=== PATIENT | female | born 1995 | race Caucasian/White ===

== ENCOUNTER 2019-09-09 11:48 | Emergency (ER) | payer OTHER, SELFPAY ==
[2019-09-09 12:03] VITALS: BP 123/69; PULSE 69; RESP 20; TEMP 37.5; O2SAT 100
--- NOTE | 2019-09-09 12:03 | ED.URI ---
HPI - URI/Sore Throat General Chief Complaint: Upper Respiratory Infection Stated Complaint: Cough Time Seen by Provider: 09/09/19 12:03 Source: patient Mode of arrival: ambulatory Limitations: no limitations History of Present Illness HPI Narrative: Christina Scott is a 24 yo female with a PMH of seasonal allergies who comes to express care with myalgias sore throat cough. Coughing is bad enough that causes her to vomit x 2 days. Related Data Allergies Allergy/AdvReac Type Severity Reaction Status Date / Time garlic Allergy Unknown HIVES Verified 08/12/19 09:57 latex Allergy Unknown RASH Verified 08/12/19 09:57 sertraline Allergy Unknown suicidal Verified 08/12/19 09:57 thoughts Review of Systems Review of Systems: Narrative: CONSTITUTIONAL: Low-grade fever, chills, sweats. EYES: Denies visual changes, redness, discharge. ENT: Has rhinorrhea, has congestion, minimal sore throat, no otalgia. CARDIOVASCULAR: Denies chest pain, palpitations, edema. RESPIRATORY: Denies dyspnea, wheezing, dry cough GASTROINTESTINAL: Denies abdominal pain, nausea, vomiting, diarrhea. GENITOURINARY: Denies dysuria, hematuria, abnormal discharge SKIN: Denies rash or itching. NEUROLOGIC: Denies numbness, or focal weakness. PSYCHIATRIC: Denies anxiety or depression. [facility] Past Medical History Medical History Astigmatism, bilateral Depression with anxiety IBS (irritable bowel syndrome) UTI (urinary tract infection) Surgical History Surgical History History of dilation and curettage History of exploratory laparotomy Family History Family History Grandparent Diabetes mellitus Family history of malignant neoplasm of brain Mother Diabetes mellitus Family history of elevated blood lipids Family history of anemia Father Hypertension Other Family history of malignant neoplasm of kidney Family history of pancreatic cancer Social History Social History (Updated 09/09/19 @ 12:11 by Sandra Centeno CNP) Smoking status: Former smoker Alcohol intake: never Gender identity (if verbalized by the patient): Female Comments At time of signature, I agree with nursing past medical, surgical, social and family history. There is no relevant family history pertinent to the presenting complaint. Exam Narrative: Exam Narrative: GENERAL: This is a well-nourished, well-developed patient, in moderate distress. HEAD: normocephalic, atraumatic. EYES: Sclera clear/white. Vision is grossly intact. EARS: External ears normal, auditory canals clear and without drainage, TMs normal without perforation. Hearing grossly intact. NOSE: External nose normal with clear nasal discharge, nares with redness, has rhinorrhea. THROAT: Mucous membranes moist, posterior pharynx erythema NECK: Neck supple, non-tender CARDIOVASCULAR: Regular rate and rhythm without murmurs, gallops, or rubs. RESPIRATORY: Clear to auscultation. Breath sounds equal bilaterally. No wheezes, rales, or rhonchi. GASTROINTESTINAL: Abdomen soft, non-tender, SKIN: warm, intact with no suspicious lesions or rash, good texture and turgor. NEURO: awake, alert, and oriented to person, place and time. There were no obvious focal neurologic abnormalities. Steady gait EXTREMITIES: Normal range of motion. BACK: Nontender without deformity or crepitance. Course Course Emergency Course: Flu swab negative Strep positive Started on penicillin, discussed infection control guidelines Work excuse given Vital Signs Vital signs: Vital Signs Temperature 99.5 F 09/09/19 12:03 Pulse Rate 69 09/09/19 12:03 Respiratory Rate 20 09/09/19 12:03 Blood Pressure 123/69 09/09/19 12:03 Pulse Oximetry 100 09/09/19 12:03 Temperature 99.5 F 09/09/19 12:03 Pulse Rate 69 09/09/19 12:03 Respiratory Rate 20 0
== END 2019-09-09 12:24 | disposition home or self-care (01) ==
PROVIDERS: Emergency Provider Nurse Practitioner
DX: J02.0 Streptococcal pharyngitis (principal); Z87.891 Personal history of nicotine dependence; F41.9 Anxiety disorder, unspecified; F32.9 Major depressive disorder, single episode, unspecified
CPT/HCPCS: 87804; 87880; 99213; G0463

== ENCOUNTER 2019-11-02 12:44 | Emergency (ER) | payer OTHER, SELFPAY ==
--- NOTE | ~2019-11-02 | US_ITS ---
EXAMINATION: US pelvic complete w TV DATE: 11/02/2019 15:08 INDICATION: Right pelvic pain, history of left oophorectomy TECHNIQUE: Multiple transabdominal and endovaginal sonographic images of the pelvis were obtained. COMPARISON: 02/05/2019 FINDINGS: The uterus measures 7.6 x 4.6 x 3.5 cm. The endometrial complex measures 4 mm. The left ova ry is not visualized however no left adnexal abnormality is seen. The right ovary measures 3.7 x 1.7 x 2.2 cm. A cyst or follicle of the right ovary is decreased in size prior examination. Also noted ar e smaller cysts or follicles of the right ovary. There is normal vascular flow in the right ovary. Th ere is no free fluid in the pelvis. IMPRESSION: 1. No sonographic correlate for the patient's symptoms. Reviewed, dictated and finalized at location A.
--- NOTE | ~2019-11-02 | CT_ITS ---
EXAMINATION: CT abdomen pelvis w con EXAM DATE: 11/02/2019 16:26 INDICATION: Right lower quadrant abdominal pain. TECHNIQUE: Spiral CT of the abdomen and pelvis was performed following intravenous injection of 100 m L Omnipaque 350. Axial, coronal and sagittal images were reviewed. The dose-length product (DLP) fo r this examination was 190.74 mGy-cm. The exposure was tailored according to patient size (auto mA e xposure control), and iterative reconstruction (ASIR) was used as additional dose reduction technique . Comparison is made to prior examination from 04/05/2019. FINDINGS: The liver, spleen, adrenal glands and pancreas are unremarkable. Gallbladder is unremarkab le. No biliary obstruction. Portal and splenic veins are patent. Kidneys enhance symmetrically. T here is no hydronephrosis. The uterus is unremarkable. Right ovary is normal in size, the left is n ot identified. The bladder is unremarkable. There is no retroperitoneal or pelvic lymphadenopathy. Probable identification of a normal appendix. No pericecal inflammation. The stomach and small melquiades l are unremarkable. There is expected amount of colonic stool. No free intraperitoneal gas. The heart is normal in size. There are no pericardial or pleural effusions. The lung bases are unremark able. The bones are unremarkable. IMPRESSION: 1. No acute intra-abdominal findings. Reviewed, dictated and finalized at location A.
[2019-11-02 12:50] VITALS: BP 90/71; PULSE 63; RESP 18; TEMP 36.8; O2SAT 100
[2019-11-02 13:32] LABS: Basophils Percent Auto 0.6 % (0.2-1.2); Eosinophils Absolute Auto 0.1 K/mm3 (0-0.3); Eosinophils Percent Auto 1.7 % (0-4.4); Hematocrit 40.1 % (37.0-47.0); Hemoglobin 13.6 g/dL (12.0-15.0); Immature Granulocyte Absolute 0.01 K/mm3 (0.00-0.031); Immature Granulocyte Percent A 0.2 % (0-0.5); Lymphocytes Absolute Auto 2.15 K/mm3 (0.9-3.2); Lymphocytes Percent Auto 33.5 % (18.3-44.2); Mean Corpuscular HGB Conc 33.9 g/dl (32-36); Mean Corpuscular Hemoglobin 31.5 pg (26-34); Mean Corpuscular Volume 92.8 fl (80-100); Monocytes Absolute Auto 0.5 K/mm3 (0.1-0.6); Monocytes Percent Auto 7.5 % (2.6-8.5); Neutrophils Absolute Auto 3.6 K/mm3 (1.3-6.7); Neutrophils Percent Auto 56.5 % (45.5-73.1); Platelet Count Result 323 k/mm3 (150-375); Red Blood Count 4.32 M/mm3 (4.2-5.4); Red Cell Distribution Width 11.9 % (11.5-14.5); White Blood Count 6.4 K/mm3 (4.5-10.0)
[2019-11-02 13:44] LABS: Add Urine Microscopic? YES; Appearance Urine Clear (Clear); Bacteria Urine Trace /hpf; Bilirubin Urine Negative (Negative); Blood Urine 2+ (Negative); Color Urine Yellow (Yellow); Glucose Urine UA Negative (Negative); Ketones Urine Negative (Negative); Leukocyte Esterase Ur Negative LEU/UL (Negative); Nitrate Urine Negative (Negative); Protein Urine Negative (Negative); RBC Urine 0-2 /hpf (0-2); Specific Grav Ur 1.018 (1.001-1.035); Squamous Epithelial Cell Urine Occasional /hpf (Few); Urobilinogen Urine Negative mg/dL (<2.0); WBC Urine 0-3 /hpf
[2019-11-02 13:53] LABS: Alanine Aminotransferase 20 U/L (4-35); Albumin Level 4.5 g/dL (3.5-5.1); Alkaline Phosphatase 58 U/L (38-126); Aspartate Amino Transferase 26 U/L (14-36); Bilirubin,Total 1.1 mg/dL (0.2-1.3); Blood Urea Nitrogen 6 mg/dL (7-17); Calcium 8.8 mg/dL (8.4-10.2); Carbon Dioxide 28 mmol/L (22-30); Chloride 104 mmol/L (98-107); Estimated CRCL calculation 88 ml/min; Estimated Glomerular Filt Rate > 60; Glucose 85 mg/dL (65-105); Lipase 50 U/L (23-300); Potassium 4.1 mmol/L (3.4-5.0); Sodium 138 mmol/L (137-145)
[2019-11-02] MEDS: ONDANSETRON INJ 4 MG/2 ML VIAL IV PUSH (15:03)
[2019-11-02] MEDS: SODIUM CHLORIDE 0.9% IV 500 ML 999 ML IV CONT (15:04)
--- NOTE | 2019-11-02 15:16 | ED.ABDPAIN ---
HPI - Abdominal Pain General Chief Complaint: Abdominal Pain <GOGO Herndon Last Filed: 11/02/19 17:33> Stated Complaint: PELVIC, LAP X1D <GOGO Herndon Last Filed: 11/02/19 17:33> Time Seen by Provider: 11/02/19 14:25 <GOGO Herndon Last Filed: 11/02/19 17:33> Source: patient <GOGO Herndon Last Filed: 11/02/19 17:33> Mode of arrival: ambulatory <GOGO Herndon Last Filed: 11/02/19 17:33> Limitations: no limitations <GOGO Herndon Last Filed: 11/02/19 17:33> History of Present Illness HPI narrative: This is a 24 year old female that presents to the ER for pelvic pain since yesterday. Reports she started her period and started to have some right sided pelvic pain. Reports that pain has been sharp/crampy and intermittent. Reports she does have a history of ovarian cysts and had to have an oophorectomy on the left. Reports the pain is associated with nausea. Denies fever, vomiting, dysuria, hematuria. <GOGO Herndon Last Filed: 11/02/19 17:33> Related Data Allergies/Adverse Reactions: Allergies Allergy/AdvReac Type Severity Reaction Status Date / Time garlic Allergy Unknown HIVES Verified 11/02/19 12:55 latex Allergy Unknown RASH Verified 11/02/19 12:55 sertraline Allergy Unknown suicidal Verified 11/02/19 12:55 thoughts <GOGO Herndon Last Filed: 11/02/19 17:33> Review of Systems Review of Systems: Narrative: CONSTITUTIONAL: Denies fever GASTROINTESTINAL: Reports abdominal/pelvic pain, nausea. Denies vomiting, or diarrhea. GENITOURINARY: Denies dysuria or hematuria. <GOGO Herndon Last Filed: 11/02/19 17:33> All systems reviewed & are unremarkable except as noted in HPI and below <GOGO Herndon Last Filed: 11/02/19 17:33> [facility] Social History Social History: Social History (Updated 09/09/19 @ 12:11 by Sandra Centeno CNP) Smoking status: Former smoker Alcohol intake: never Gender identity (if verbalized by the patient): Female <Aubree Quintero PA-C - Last Filed: 11/02/19 17:33> Exam Narrative: Exam Narrative: GENERAL: Well-appearing, well-nourished, and in no acute distress. HEAD: Normocephalic, atraumatic. EYES: EOMI. CHEST: Clear to auscultation. No respiratory distress. No wheezes rales or rhonchi HEART: Regular rate and rhythm. No murmur heard. Normal peripheral pulses. ABDOMEN: Soft, nondistended, normal active bowel sounds. Mild tenderness to palpation of the RLQ, without guarding EXTREMITIES: Normal range of motion. No edema. SKIN: Warm, dry, no rash. NEURO: No focal deficits. Alert and oriented x3. PSYCH: Normal mood and affect <GOGO Herndon Last Filed: 11/02/19 17:33> Course Consultations Consultation #1: Spoke with Dr. Melida Sweet about patient work-up will follow-up in clinic. <Aubree Quintero PA-C - Last Filed: 11/02/19 17:33> Date: 11/02/19 <GOGO Herndon Last Filed: 11/02/19 17:33> Time: 17:32 <GOGO Herndon Last Filed: 11/02/19 17:33> Vital Signs Vital signs: Vital Signs Temperature 98.3 F 11/02/19 12:50 Pulse Rate 63 11/02/19 12:50 Respiratory Rate 18 11/02/19 12:50 Blood Pressure 90/71 L 11/02/19 12:50 Pulse Oximetry 100 11/02/19 12:50 Temperature 98.3 F 11/02/19 12:50 Pulse Rate 55 L 11/02/19 16:55 Respiratory Rate 16 11/02/19 16:55 Blood Pressure 98/54 L 11/02/19 16:55 Pulse Oximetry 100 11/02/19 16:55 <GOGO Herndon Last Filed: 11/02/19 17:33> Vital Signs Temperature 98.3 F 11/02/19 12:50 Pulse Rate 63 11/02/19 12:50 Respiratory Rate 18 11/02/19 12:50 Blood Pressure 90/71 L 11/02/19 12:50 Pulse Oximetry 100 11/02/19 12:50 Temperature 98.3 F 11/02/19 12:50 Pulse Rate 55 L 11/02/19 16:55 Respiratory Rate 16 11/02/19 16:55 Blood Pressure 98/54 L 11/02/19 16:55 Pulse Oximetry 100
[2019-11-02 16:55] VITALS: BP 98/54; PULSE 55; RESP 16; O2SAT 100
[2019-11-02] MEDS: KETOROLAC 15 MG/ML VIAL (*BKC) IV PUSH (17:11)
== END 2019-11-02 17:50 | disposition home or self-care (01) ==
PROVIDERS: Physician Assistant; Emergency Provider Emergency Medicine; PCP Family Medicine
DX: R10.2 Pelvic and perineal pain (principal); Z87.891 Personal history of nicotine dependence
CPT/HCPCS: 36415; 74177; 76830; 76856; 80053; 81001; 81025; 83690; 85025; 96365; 96375; 99284; J0131; J1885; J2405; J7040; Q9967

== ENCOUNTER 2020-01-17 13:08 | Emergency (ER) | payer OTHER, SELFPAY ==
[2020-01-17 13:18] VITALS: BP 112/63; PULSE 75; RESP 18; TEMP 37.5; O2SAT 100
--- NOTE | 2020-01-17 13:59 | ED.URI ---
HPI - URI/Sore Throat General Chief Complaint: Upper Respiratory Infection Stated Complaint: possible sinus infection Time Seen by Provider: 01/17/20 13:49 Source: patient and RN notes reviewed Mode of arrival: ambulatory Limitations: no limitations History of Present Illness HPI Narrative: Patient presents today with a 3-day history of productive cough, headache, sinus pressure with nasal congestion, itchy and watery eyes, and nausea. Denies fever, shortness of breath, postnasal drainage, sore throat, ear pain. She was sent home from work today to be evaluated. She has been taking Tylenol Sinus with mild relief. She also takes Zyrtec daily for seasonal allergies. Denies history of asthma or COPD. She is a non-smoker. MD elicited complaint: cough and nasal congestion Related Data Home Medications Medication Instructions Recorded Confirmed norethindrone ac-eth estradiol 1 tablet PO DAILY 01/17/20 01/17/20 Allergies Allergy/AdvReac Type Severity Reaction Status Date / Time garlic Allergy Unknown HIVES Verified 11/02/19 12:55 latex Allergy Unknown RASH Verified 01/17/20 13:29 sertraline Allergy Unknown suicidal Verified 01/17/20 13:29 thoughts Review of Systems Review of Systems: Narrative: CONSTITUTIONAL: Denies body aches, fever, chills, or sweats. EYES: Denies visual changes, redness, or discharge.+ Itchy and watery eyes ENT: Denies rhinorrhea, sore throat, or otalgia.+ Nasal congestion, sinus pressure CARDIOVASCULAR: Denies chest pain, palpitations, or edema. RESPIRATORY: Denies dyspnea. + Cough GASTROINTESTINAL: Denies abdominal pain, vomiting, or diarrhea. + Nausea GENITOURINARY: Denies dysuria or hematuria. SKIN: Denies rash, itching, or wounds. MUSCULOSKELETAL: Denies back pain, joint pain, or myalgia. NEUROLOGIC: Denies numbness, tingling, or weakness. + Headache PSYCH: Denies depression or anxiety. [facility] Social History Social History (Updated 09/09/19 @ 12:11 by Sandra Centeno CNP) Smoking status: Former smoker Alcohol intake: never Gender identity (if verbalized by the patient): Female Comments At time of signature, I have reviewed and agree with nursing past medical, surgical, social and family history unless otherwise noted. Please see nursing chart for further information. There is no relevant family history pertinent to the presenting complaint Exam Narrative: Exam Narrative: GENERAL: Mildly ill-appearing, well-nourished, and in no acute distress. HEAD: Normocephalic, atraumatic. EYES: EOMI. PERRL. No redness or drainage. Conjunctivae normal. Increased watering. ENT: Mucous membranes pink and moist. Nares congestion with rhinorrhea. TMs normal bilaterally. Throat normal. Uvula midline. NECK: Normal AROM. Supple. No lymphadenopathy. CHEST: No respiratory distress. Clear to auscultation. HEART: Regular rate and rhythm. No murmur appreciated. Normal peripheral pulses. EXTREMITIES: Normal range of motion. No edema. SKIN: Warm, dry, no rash. Capillary refill normal. Normal skin turgor. NEURO: No focal deficits. Alert and oriented x3. Gait steady. PSYCH: Normal affect. No signs of depression or anxiety. Course Vital Signs Vital signs: Vital Signs Temperature 99.5 F 01/17/20 13:18 Pulse Rate 75 01/17/20 13:18 Respiratory Rate 18 01/17/20 13:18 Blood Pressure 112/63 01/17/20 13:18 Pulse Oximetry 100 01/17/20 13:18 Temperature 99.5 F 01/17/20 13:18 Pulse Rate 75 01/17/20 13:18 Respiratory Rate 18 01/17/20 13:18 Blood Pressure 112/63 01/17/20 13:18 Pulse Oximetry 100 01/17/20 13:18 Reviewed MDM - URI/Sore Throat Differential Diagnosis Differential diagnosis: Likely upper respiratory infection, otitis media, sinusitis, viral infection, bronchitis, pharyngitis and other (COVID-19) Critical Care Time Critical Care Time Critical Care Time: No Discharge Plan Discharge Clinical Impression: Seasonal allergies Patient Dispositio
== END 2020-01-17 14:05 | disposition home or self-care (01) ==
PROVIDERS: Emergency Provider Nurse Practitioner; PCP Family Medicine
DX: J30.9 Allergic rhinitis, unspecified (principal); Z20.828 Contact with and (suspected) exposure to other viral communicable diseases; Z87.891 Personal history of nicotine dependence
CPT/HCPCS: 99213; G0463

== ENCOUNTER → 2020-01-19 06:49 | Outpatient (NON) | payer OTHER, SELFPAY ==
[2020-01-19 19:18] LABS: SARS-CoV-2 RNA PCR Negative
== END ==
PROVIDERS: PCP Family Medicine; Visit Provider Family Medicine
DX: R09.81 Nasal congestion (principal)
CPT/HCPCS: 87635; C9803; U0003

== ENCOUNTER 2020-01-19 08:49 | Emergency (ER) | payer OTHER, SELFPAY ==
--- NOTE | ~2020-01-19 | XR_ITS ---
EXAMINATION: XR chest 1V portable EXAM DATE: 01/19/2020 09:46 INDICATION: Syncope and right-sided chest pain. COVID positive TECHNIQUE: Portable AP frontal chest x-ray was obtained. Comparison is made to prior examination from 02/05/2019. FINDINGS: There is no focal air space disease. There are no pleural effusions. The cardiothymic logan houette is normal. There is no pneumothorax. There are no osseous or soft tissue abnormalities in t his skeletally immature patient. Lungs have normal volume. IMPRESSION: Normal chest x-ray exam. Reviewed, dictated and finalized at location A. IMPRESSION: Normal chest x-ray exam.
[2020-01-19 08:56] VITALS: BP 113/59; PULSE 67; RESP 11; TEMP 36.8; O2SAT 99
[2020-01-19 08:59] VITALS: PULSE 67
--- NOTE | 2020-01-19 09:01 | ECG_ITS ---
Measurements Intervals [place] Rate: 70 P: 66 MN: 126 QRS: 87 QRSD: 89 T: 16 QT: 348 QTc: 377 Interpretive Statements SINUS RHYTHM RSR' IN V1 OR V2, PROBABLY NORMAL VARIANT NORMAL ECG Electronically Signed On 01-19-2020 10:10:17 CDT by Moo Magdaleno D.O.
--- NOTE | 2020-01-19 09:25 | ED.CHESTPAIN ---
HPI - Chest Pain General Chief Complaint: Chest Pain Stated Complaint: CP Time Seen by Provider: 01/19/20 08:56 History of Present Illness HPI narrative: Patient presents with upper right chest pain just today. Started while she was driving her boyfriend to work in the car. She went to urgent care and they tested her for COVID and told her she probably had a sinus infection. She has chest pain 6 out of 10, runny nose, headache. 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 Her test results should be ready in 24 to 48 hours. She is not taking anything for the pain. She does not have asthma or COPD. She is coughing. She has not had fever. Surgical history includes laparoscopy, oophorectomy, and a D&C. Medical history of migraines and endometriosis. She takes control pills, and Imitrex. MD complaint: chest pain Pertinent past history: other (Has a cough and has been tested for COVID) Onset (ago): hour(s) Timing of current episode: still present Prior episodes: No Onset: during rest Pain location: right chest Pain radiation: none Severity: moderate Relieving factors: nothing Exacerbating factors: inspiration Treatment prior to arrival: none Risk Factors Coronary artery disease risk factors: none Related Data On Oral Contraceptives: Yes Home Medications Medication Instructions Recorded Confirmed norethindrone ac-eth estradiol 1 tablet PO DAILY 01/17/20 01/17/20 sumatriptan succinate mg PO 01/19/20 01/19/20 Allergies Allergy/AdvReac Type Severity Reaction Status Date / Time garlic Allergy Unknown HIVES Verified 01/19/20 09:00 latex Allergy Unknown RASH Verified 01/19/20 09:00 sertraline Allergy Unknown suicidal Verified 01/19/20 09:00 thoughts Review of Systems Review of Systems: Narrative: CONSTITUTIONAL: Denies fever, chills, or sweats. EYES: Denies visual changes, redness, or discharge. ENT: Denies rhinorrhea, congestion, sore throat, or otalgia. CARDIOVASCULAR: She had chest pain, but not palpitations, or edema. RESPIRATORY: He has cough GASTROINTESTINAL: Denies abdominal pain, nausea, vomiting, or diarrhea. GENITOURINARY: Denies dysuria or hematuria. SKIN: Denies rash or itching. MUSCULOSKELETAL: Denies back pain, joint pain, or myalgia. NEUROLOGIC: Denies headache, numbness, or weakness. PSYCHIATRIC: Denies anxiety or depression. All systems reviewed & are unremarkable except as noted in HPI and below PMFSH Past Medical History Medical History Astigmatism, bilateral Depression with anxiety Endometriosis IBS (irritable bowel syndrome) Migraine UTI (urinary tract infection) Surgical History Surgical History History of dilation and curettage History of exploratory laparotomy Social History Social History Smoking status: Former smoker Alcohol intake: never Gender identity (if verbalized by the patient): Female Exam Narrative: Exam Narrative: GENERAL: Well-appearing, well-nourished, and in no acute distress. HEAD: Normocephalic, atraumatic. EYES: PERRLA and EOMI. ENT: Nares clear, no rhinorrhea or epistaxis. Mucous membranes moist. NECK: Supple. CHEST: Clear to auscultation. No respiratory distress. HEART: Regular rate and rhythm. No murmur heard. Normal peripheral pulses. ABDOMEN: Soft, nontender, nondistended, normal active bowel sounds. EXTREMITIES: Normal range of motion. No edema. SKIN: Warm, dry, no rash. NEURO: No focal deficits. Alert and oriented x3. PSYCH: Normal mood and affect. Course Reevaluation(s) Reevaluation #1: Went in the room to tell the patient about all of her normal test result. That I did not find a blood clot, pneumonia, lung mass, or any cause of her chest pain. Recommend that she take Tylenol and ibuprofen. Date: 01/19/20 Time: 11:11 Vital Signs Vital signs: Vital Signs Temperature 98.2 F 01/19/20 0
[2020-01-19 09:37] VITALS: BP 109/72; PULSE 90; RESP 13; O2SAT 97
[2020-01-19] MEDS: ACETAMINOPHEN 325 MG TABLET 650 MG PO (09:37)
[2020-01-19 09:49] LABS: Basophils Percent Auto 0.4 % (0.2-1.2); Eosinophils Absolute Auto 0.1 K/mm3 (0-0.3); Hematocrit 43.7 % (37.0-47.0); Hemoglobin 14.9 g/dL (12.0-15.0); Immature Granulocyte Absolute 0.04 K/mm3 (0.00-0.031); Immature Granulocyte Percent A 0.4 % (0-0.5); Lymphocytes Absolute Auto 2.74 K/mm3 (0.9-3.2); Lymphocytes Percent Auto 26.9 % (18.3-44.2); Mean Corpuscular HGB Conc 34.1 g/dl (32-36); Mean Corpuscular Hemoglobin 31.6 pg (26-34); Mean Corpuscular Volume 92.8 fl (80-100); Monocytes Absolute Auto 0.8 K/mm3 (0.1-0.6); Neutrophils Absolute Auto 6.4 K/mm3 (1.3-6.7); Neutrophils Percent Auto 63.3 % (45.5-73.1); Platelet Count Result 308 k/mm3 (150-375); Red Blood Count 4.71 M/mm3 (4.2-5.4); Red Cell Distribution Width 11.9 % (11.5-14.5); White Blood Count 10.2 K/mm3 (4.5-10.0)
[2020-01-19 10:06] LABS: Alanine Aminotransferase 37 U/L (4-35); Albumin Level 4.8 g/dL (3.5-5.1); Alkaline Phosphatase 55 U/L (38-126); Anion Gap 14.6 mmol/L (7-16); Aspartate Amino Transferase 32 U/L (14-36); Bilirubin,Total 1.6 mg/dL (0.2-1.3); Blood Urea Nitrogen 9 mg/dL (7-17); Calcium 9.4 mg/dL (8.4-10.2); Carbon Dioxide 26 mmol/L (22-30); Chloride 102 mmol/L (98-107); Estimated CRCL calculation 80 ml/min; Estimated Glomerular Filt Rate > 60; Glucose 83 mg/dL (65-105); Potassium 3.6 mmol/L (3.4-5.0); Sodium 139 mmol/L (137-145)
[2020-01-19 10:20] LABS: D Dimer < 0.22 ug/mL (<0.48)
[2020-01-19 10:51] VITALS: BP 105/57; PULSE 68; RESP 17; O2SAT 98
[2020-01-19 11:14] VITALS: BP 108/59; PULSE 70; RESP 20; TEMP 36.7; O2SAT 100
== END 2020-01-19 11:16 | disposition home or self-care (01) ==
PROVIDERS: Emergency Provider Emergency Medicine; PCP Family Medicine
DX: R07.9 Chest pain, unspecified (principal); R05 Cough; R94.31 Abnormal electrocardiogram [ECG] [EKG]; F41.9 Anxiety disorder, unspecified; F32.9 Major depressive disorder, single episode, unspecified; K58.9 Irritable bowel syndrome, unspecified
CPT/HCPCS: 36415; 71045; 80053; 85025; 85380; 85610; 87635; 93005; 99283; A9270; C9803; U0003

== ENCOUNTER 2020-03-01 01:26 | Outpatient (CLI) | payer OTHER, SELFPAY ==
[2020-03-01 19:20] LABS: SARS-CoV-2 RNA PCR Negative
== END 2020-03-01 01:27 | disposition home or self-care (01) ==
LOC: ANHCOVIDDT 01:26
PROVIDERS: PCP Family Medicine; Visit Provider Obstetrics & Gynecology
DX: Z01.812 Encounter for preprocedural laboratory examination (principal); Z20.828 Contact with and (suspected) exposure to other viral communicable diseases
CPT/HCPCS: 87635; C9803; U0003

== ENCOUNTER 2020-03-03 02:11 | Day surgery (SDC) | payer OTHER, SELFPAY ==
--- NOTE | 2020-03-01 07:21 | PM.IMHP ---
H&P: HPI History of Present Illness Date/Time: 03/01/20 07:21 Chief complaint: Polyp, Irregular bleeding and Pain Narrative: Christina Scott is a 24 year old female 5 para 1 admitted for hysteroscopy dilatation and curettage and polypectomy. She had pain discomfort and dyspareunia she undertook an ultrasound which showed what appeared to be a body of mass and lower endometrial canal which had blood flow. Risks and benefits of this procedure reviewed in full she received the [employer] handout entitled hysteroscopy as well as dilatation and curettage. She had all questions answered in asked to proceed Review of Systems Review of Systems: All systems reviewed & are unremarkable except as noted in HPI and below PMFSH Past Medical History Medical History Astigmatism, bilateral Depression with anxiety Endometriosis IBS (irritable bowel syndrome) Migraine UTI (urinary tract infection) Surgical History Surgical History History of dilation and curettage History of exploratory laparotomy Family History Family History Grandparent Diabetes mellitus Family history of malignant neoplasm of brain Mother Diabetes mellitus Family history of elevated blood lipids Family history of anemia Father Hypertension Other Family history of malignant neoplasm of kidney Family history of pancreatic cancer Social History Social History Years smoked: 3 Smoking status: Former smoker Tobacco type: cigarettes Additional smoking assessment comments: QUIT 1 YEAR AGO Alcohol intake: never Gender identity (if verbalized by the patient): Female Spiritual care concerns: No Meds Home Medications and Allergies Home Medications Medication Instructions Recorded Confirmed Type sumatriptan succinate 50 mg PO DIRECTED PRN 01/19/20 02/17/20 History Allergies Allergy/AdvReac Type Severity Reaction Status Date / Time garlic Allergy Unknown HIVES Verified 02/17/20 13:48 latex Allergy Unknown RASH Verified 02/17/20 13:48 sertraline Allergy Unknown suicidal Verified 02/17/20 13:48 thoughts Exam Const: General: no acute distress Eyes: General: appearance normal, both eyes and all related structures Neck: Neck: supple and no JVD Thyroid: thyroid normal Resp: Effort & Inspection: normal respiratory effort Auscultation: clear to auscultation bilaterally Cardio: Rate: regular rate Rhythm: regular rhythm GI: Inspection: non-distended GI Palp: Yes Soft to palpation, No Tenderness to palpation present (GI) and No Guarding due to palpation present (GI) Auscultation: normal bowel sounds : General: Yes bladder normal to palpation External Female Exam: normal external appearance Speculum Exam - Vagina: normal vaginal discharge and No vaginal bleeding Speculum Exam - Cervix: nontender Bimanual exam- vagina & uterus: bladder normal to palpation and No Cervical tenderness present OB/external & speculum: No vaginal bleeding Skin: General skin exam: no rashes or lesions noted Extrem: General: normal to inspection and no edema Psych: Mental Status: mental status grossly normal Affect: normal affect Assessment and Plan Additional Plan impression: Excessive bleeding and pain with success suspected uterine polyp Plan: Hysteroscopy/dilatation curettage / polypectomy
--- NOTE | 2020-03-03 06:43 | WPDHPUPDATE1 ---
History and Physical Update Update Date/Time: 03/03/20 06:43 History and Physical has been reviewed, including an updated exam of the patient. There are NO changes in the patient's condition. Risks, benefits, and alternatives have been discussed and questions answered. Patient agrees to proceed with procedure.
--- NOTE | 2020-03-03 09:34 | WPDANESEPPF ---
Anes - Initial Pre Proc Eval Procedure: Operation Date: 03/03/20 10:30 Proposed Procedures p Hysteroscopy Dilation and Curettage With Polypectomy - Fan Mathews MD Date/Time: 03/03/20 09:34 Surgeon: Fan Mathews MD Pre Op Diagnosis: Polyp, Irregular bleeding and Pain Patient Data Age: 24 Gender: F Height: 5 ft 1 in Weight: 48.08 kg Allergies Allergy/AdvReac Type Severity Reaction Status Date / Time garlic Allergy Unknown HIVES Verified 02/17/20 13:48 latex Allergy Unknown RASH Verified 02/17/20 13:48 sertraline Allergy Unknown suicidal Verified 02/17/20 13:48 thoughts Home Medications Medication Instructions Recorded Confirmed Type sumatriptan succinate 50 mg PO DIRECTED PRN 01/19/20 02/17/20 History hydrocodone-acetaminophen [[place]kin] 1 tablet PO Q4H PRN #30 tablet 03/03/20 Rx Patient hx anesthesia problems: none Family hx anesthesia problems: none PMFSH Past Medical History Medical History Astigmatism, bilateral Depression with anxiety Endometriosis IBS (irritable bowel syndrome) Migraine UTI (urinary tract infection) Surgical History Surgical History History of dilation and curettage History of exploratory laparotomy Family History Family History Grandparent Diabetes mellitus Family history of malignant neoplasm of brain Mother Diabetes mellitus Family history of elevated blood lipids Family history of anemia Father Hypertension Other Family history of malignant neoplasm of kidney Family history of pancreatic cancer Social History Social History Years smoked: 3 Smoking status: Former smoker Tobacco type: cigarettes Additional smoking assessment comments: QUIT 1 YEAR AGO Alcohol intake: never Gender identity (if verbalized by the patient): Female Spiritual care concerns: No Anes - Eval Final PreProcedure Day of Procedure 03/03/20 09:34 Patient weight: normal Heart: regular rate and rhythm Lungs: clear to auscultation Airway: Mallampati scale class II Neurological: alert and oriented Last oral intake: >/= 8 hours ASA classification: II Emergent: no Anesthetic plan: proceed Anesthesia type and monitoring: general GIVS and standard monitoring Informed Consent: The patient's anesthetic plan and its attendant risks and benefits were discussed with the patient/family/POA. Questions were solicited and answers provided to the satisfaction of the patient/family/POA.
[2020-03-03 09:35] VITALS: BP 116/69; PULSE 66; TEMP 36.9; O2SAT 100
[2020-03-03] MEDS: LACTATED RINGERS 1,000 ML 30 ML IV CONT (09:54)
[2020-03-03] MEDS: ACETAMINOPHEN 500 MG TABLET 1000 MG PO (09:56)
[2020-03-03] MEDS: KETOROLAC 30 MG/ML VIAL (*BKC) 15 MG IV PUSH (10:19)
--- NOTE | 2020-03-03 10:22 | PM.PROC ---
Procedure Note - Detailed Date of procedure: 03/03/20 Pre-op diagnosis: Polyp, Irregular bleeding and Pain Surgeon: Fan Mathews MD Postop diagnosis: Uterine polyp /irregular bleeding /pain Procedure: Hysteroscopy /polypectomy /dilatation curettage EBL: 5Cc Anesthesia: IV sedation local Complications: None Findings: Uterus sounded to 7 .5 cm. A small uterine polyp was seen Description of procedure: Patient was prepped and draped in normal sterile fashion placed in the dorsal lithotomy position. Under excellent IV sedation weighted speculum placed in posterior fornix of vagina. Anterior lip of the cervix was grasped with a single-tooth tenaculum. 2.5cc of 1% xylocaine anesthesia placed at 2, 4, 8, 10:00 a.m. of the cervix. Uterus sounded to 7cm. Serial dilatation with fragmented dilators performed followed by passage of the 5mm visualizing hysteroscope. Normal saline was used as visualizing medium. A small uterine polyp was seen and this was picked piecemeal with uterine polyp forceps. Uterus was then scraped over the entire 360? until a good grating sound was. When no further tissue could be removed the instruments removed. All sponge, needle, instrument counts were correct. There were no immediate complications
[2020-03-03 10:26] VITALS: BP 126/73; PULSE 62; RESP 14; O2SAT 100
[2020-03-03 10:55] VITALS: BP 114/61; PULSE 72; RESP 14
[2020-03-03 11:26] VITALS: BP 121/62; PULSE 60; RESP 16
== END 2020-03-03 11:59 | disposition home or self-care (01) ==
PROVIDERS: PCP Family Medicine; Visit Provider Obstetrics & Gynecology
PROC: 0U5B8ZZ Destruction of Endometrium, Via Natural or Artificial Opening Endoscopic (ICD-10-PCS; CPT 58563; principal; 2020-03-03 10:30)
DX: N84.0 Polyp of corpus uteri (principal); N93.9 Abnormal uterine and vaginal bleeding, unspecified; R10.2 Pelvic and perineal pain; F41.8 Other specified anxiety disorders; Z87.891 Personal history of nicotine dependence
CPT/HCPCS: 58558; 88305; A9270; J1885; J2250; J2704; J3010; J7120

== ENCOUNTER 2020-04-07 07:22 | Emergency (ER) | payer OTHER, SELFPAY ==
--- NOTE | ~2020-04-07 | US_ITS ---
EXAMINATION: US pelvic complete w TV DATE: 04/07/2020 08:23 INDICATION: Pelvic pain. TECHNIQUE: Multiple transabdominal and transvaginal sonographic images of the pelvis were obtained. COMPARISON: Ultrasound 11/02/2019, CT abdomen and pelvis 11/02/2019 FINDINGS: TRANSABDOMINAL ULTRASOUND: The uterus measures 7.5 x 5.8 x 4.0 cm. There is no free fluid in the pelvis. TRANSVAGINAL ULTRASOUND: The endometrial complex measures 9 mm in thickness. The right ovary measures 2.9 x 2.4 x 1.9 cm. Ther e is normal vascular flow in right ovary. The left ovary is not visualized. IMPRESSION: 1. Normal uterus and right ovary. 2. Left ovary not visualized. Reviewed, dictated and finalized at location A.
--- NOTE | ~2020-04-07 | CT_ITS ---
EXAMINATION: CT abdomen pelvis w con DATE: 04/07/2020 08:58 INDICATION: Right lower quadrant abdominal pain. Nausea. TECHNIQUE: Computed tomography (CT) of the abdomen and pelvis was performed with 100 mL Omnipaque 350 intravenous contrast. Automated exposure control and iterative reconstruction technique were employe d. The dose-length product was 205.30 mGy-cm. COMPARISON: CT abdomen and pelvis 11/02/2019 FINDINGS: The visualized portions of the lung bases are clear without pneumonia or pleural effusion. The heart size is normal. No pericardial effusion. The liver, gallbladder, spleen, pancreas, adrenal glands, and kidneys are normal. There are no dilated loops of bowel. The appendix is not visualized. There are no pathologically enlarged lymph nodes. There is no free intraperitoneal fluid. There is mi ld thoracic spondylosis. IMPRESSION: 1. No etiology for the patient's symptoms. Reviewed, dictated and finalized at location A.
[2020-04-07 07:27] VITALS: BP 119/70; PULSE 78; RESP 18; TEMP 36.9; O2SAT 100
--- NOTE | 2020-04-07 07:42 | ED.ABDPAIN ---
HPI - Abdominal Pain General Chief Complaint: Abdominal Pain Stated Complaint: ABD PAIN Time Seen by Provider: 04/07/20 07:24 Source: RN notes reviewed History of Present Illness HPI narrative: Patient presents to emergency department from home for abdominal pain. Patient states that symptoms been ongoing for the past 1 week and progressively getting worse. Patient states she was seen by her WE[employer] OPER[employer] LEAD Dr. Melida Sweet last week diagnosed with bacterial vaginosis and placed on Flagyl which she took the last dose 2 days ago. She states she continues have pain in her lower abdomen worse on the right described as cramping. States she took Tylenol for the symptoms this morning with no resolution. Patient states the pain does not radiate denies any fevers or chills diarrhea vaginal bleeding or any other symptoms. States she has been having some intermittent nausea for which she is on Zofran Related Data Home Medications Medication Instructions Recorded Confirmed sumatriptan succinate 50 mg PO DIRECTED PRN 01/19/20 03/03/20 ondansetron HCl 04/07/20 Allergies Allergy/AdvReac Type Severity Reaction Status Date / Time garlic Allergy Unknown HIVES Verified 04/07/20 07:33 latex Allergy Unknown RASH Verified 04/07/20 07:33 sertraline Allergy Unknown suicidal Verified 04/07/20 07:33 thoughts Review of Systems Review of Systems: Narrative: Gen.: Denies fevers or chills ENT: Denies congestion Respiratory: Denies shortness of breath or cough CV: Denies chest pain or palpitations GI: See HPI denies burning, urgency, frequency or hematuria Musculoskeletal: Denies back pain or muscle pain Neuro: Denies numbness, tingling, weakness or focal weakness Skin: Denies rash Except as documented, all other systems reviewed and negative [facility] Past Medical History Medical History (Updated 04/07/20 @ 10:21 by Dominick Monsalve DO) Astigmatism, bilateral Depression with anxiety Endometriosis IBS (irritable bowel syndrome) Migraine UTI (urinary tract infection) Surgical History Surgical History History of dilation and curettage History of exploratory laparotomy Family History Family History Grandparent Diabetes mellitus Family history of malignant neoplasm of brain Mother Diabetes mellitus Family history of elevated blood lipids Family history of anemia Father Hypertension Other Family history of malignant neoplasm of kidney Family history of pancreatic cancer Social History Social History Years smoked: 3 Smoking status: Former smoker Tobacco type: cigarettes Additional smoking assessment comments: QUIT 1 YEAR AGO Alcohol intake: never Gender identity (if verbalized by the patient): Female Spiritual care concerns: No Exam Narrative: Exam Narrative: APPEARANCE: No acute distress, nontoxic, resting in bed HEENT: Normocephalic, atraumatic, OMM RESPIRATORY: No respiratory distress, clear to auscultation bilaterally with no rhonchi wheezing or rales CARDIOVASCULAR: RRR s murmur ABDOMINAL: Soft, nondistended, tender palpation right lower quadrant left lower quadrant, tenderness right upper quadrant left upper quadrant, no rebound or guarding : Normal external exam, small amount of white discharge in cervical canal, no vaginal bleeding, cervix closed, right adnexal tenderness, no cervical motion tenderness MUSCULOSKELETAl: Moves all extremities. No clubbing, cyanosis or edema. NEURO: Awake and alert. Following commands, speech normal, no focal deficits SKIN:: Warm, dry. Normal Color PSYCHIATRIC: Normal affect/mood Course Course Emergency Course: Discussed with Dr. Melida Sweet presentation and work-up. At this time feels patient may be discharged home with pain medication and will follow up in the office recommends no further antibiot
[2020-04-07 08:03] LABS: Basophils Percent Auto 0.6 % (0.2-1.2); Eosinophils Absolute Auto 0.2 K/mm3 (0-0.3); Eosinophils Percent Auto 3.6 % (0-4.4); Hematocrit 43.1 % (37.0-47.0); Hemoglobin 14.5 g/dL (12.0-15.0); Immature Granulocyte Absolute 0.03 K/mm3 (0.00-0.031); Immature Granulocyte Percent A 0.5 % (0-0.5); Lymphocytes Absolute Auto 1.73 K/mm3 (0.9-3.2); Lymphocytes Percent Auto 27.9 % (18.3-44.2); Mean Corpuscular HGB Conc 33.6 g/dl (32-36); Mean Corpuscular Hemoglobin 30.9 pg (26-34); Mean Corpuscular Volume 91.9 fl (80-100); Mean Platelet Volume 8.9 fl (7.4-10.4); Monocytes Absolute Auto 0.5 K/mm3 (0.1-0.6); Monocytes Percent Auto 7.8 % (2.6-8.5); Neutrophils Absolute Auto 3.7 K/mm3 (1.3-6.7); Neutrophils Percent Auto 59.6 % (45.5-73.1); Platelet Count Result 321 k/mm3 (150-375); Red Blood Count 4.69 M/mm3 (4.2-5.4); Red Cell Distribution Width 11.5 % (11.5-14.5); White Blood Count 6.2 K/mm3 (4.5-10.0)
[2020-04-07 08:07] LABS: Add Urine Microscopic? YES; Appearance Urine Clear (Clear); Bilirubin Urine Negative (Negative); Blood Urine 1+ (Negative); Color Urine Yellow (Yellow); Glucose Urine UA Negative (Negative); Ketones Urine Negative (Negative); Leukocyte Esterase Ur Trace LEU/UL (Negative); Mucus Urine Rare /lpf; Nitrate Urine Negative (Negative); Protein Urine 1+ mg/dL (Negative); Specific Grav Ur 1.024 (1.001-1.035); Squamous Epithelial Cell Urine Many /hpf (Few); Urobilinogen Urine Negative mg/dL (<2.0); WBC Urine 0-3 /hpf
[2020-04-07 08:15] LABS: Alanine Aminotransferase 19 U/L (4-35); Albumin Level 4.4 g/dL (3.5-5.1); Alkaline Phosphatase 52 U/L (38-126); Anion Gap 9 mmol/L (8-16); Aspartate Amino Transferase 25 U/L (14-36); Bilirubin,Total 1.6 mg/dL (0.2-1.3); Blood Urea Nitrogen 11 mg/dL (7-17); Calcium 9.4 mg/dL (8.4-10.2); Carbon Dioxide 26 mmol/L (22-30); Chloride 104 mmol/L (98-107); Estimated CRCL calculation 70 ml/min; Estimated Glomerular Filt Rate > 60; Glucose 99 mg/dL (65-105); Lipase 39 U/L (23-300); Potassium 3.8 mmol/L (3.4-5.0); Sodium 139 mmol/L (137-145)
[2020-04-07 08:18] VITALS: BP 118/57; O2SAT 100
[2020-04-07] MEDS: KETOROLAC 30 MG/ML VIAL (*BKC) IV PUSH (08:20)
[2020-04-07] MEDS: SODIUM CHLORIDE 0.9% IV 1,000 ML 999 ML IV CONT (08:20)
[2020-04-07 08:31] VITALS: BP 124/79; O2SAT 100
[2020-04-07 08:46] VITALS: BP 108/60; O2SAT 100
--- NOTE | 2020-04-07 09:25 | PC.NURSE ---
Dr. Monsalve and ELIJAH Simpson, at bedside for pelvic exam with cultures.
== END 2020-04-07 10:31 | disposition home or self-care (01) ==
PROVIDERS: Emergency Provider Emergency Medicine; PCP Family Medicine
DX: R10.32 Left lower quadrant pain (principal); R10.31 Right lower quadrant pain; N80.9 Endometriosis, unspecified; K58.9 Irritable bowel syndrome, unspecified; Z87.440 Personal history of urinary (tract) infections; Z87.891 Personal history of nicotine dependence
CPT/HCPCS: 36415; 74177; 76830; 76856; 80053; 81001; 81025; 83690; 85025; 87070; 87491; 87591; 87808; 96361; 96374; 99284; J1885; J7030; Q9967

== ENCOUNTER 2020-05-29 18:24 | Emergency (ER) | payer OTHER, SELFPAY ==
--- NOTE | ~2020-05-29 | US_ITS ---
EXAMINATION: US OB <= 14 weeks fetus DATE: 05/29/2020 20:07 INDICATION: Pelvic pain during first trimester TECHNIQUE: Real-time pelvic transabdominal and transvaginal ultrasound was performed. COMPARISON: 04/07/2020 FINDINGS: The uterus measures 7.4 x 4.7 x 3.8 cm. 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 A yolk sac is identified. No definite pole i s identified. The mean sac diameter measures 1.3 cm , which correlates with an estimated gestational age of 6 weeks and 0 day(s) (+/-) 4 day(s). The left ovary is surgically absent. No left adnexal abnormality is seen. The right ovary measures 3. 6 x 2.8 x 2.4 cm and contains a cyst or corpus luteum. There is normal vascular flow in the right ova ry. There is no free fluid in the pelvis. IMPRESSION: 1. Intrauterine gestational sac within the right horn of a bicornuate or septate uterus with an estim ated gestational age of 6 weeks and 0 day(s) (+/-) 4 day(s) based on mean sac diameter. pole no t visualized, likely due to early gestational age. Reviewed, dictated and finalized at location A. CATION SERVICES SPECIALIST IMPRESSION: 1. Intrauterine gestational sac within the right horn of a bicornuate or septat e uterus with an estimated gestational age of 6 weeks and 0 day(s) (+/-) 4 day( s) based on mean sac diameter. pole not visualized, likely due to early g estational age.
[2020-05-29 18:41] VITALS: BP 123/69; PULSE 81; RESP 15; TEMP 36.6; O2SAT 100
--- NOTE | 2020-05-29 18:45 | ED.GENADULT ---
HPI - General Adult General Chief complaint: Abdominal Pain Stated complaint: ABD PAIN 5 WKS PREG Time Seen by Provider: 05/29/20 18:40 Source: RN notes reviewed History of Present Illness HPI narrative: Patient presents emergency department from home for abdominal pain. Patient states that she has been having pain in the lower abdomen worse on the right for the past 2 days. States is been associated with nausea vomiting states that she had a home test that was positive and is approximately 5 weeks based on previous dates. She states that she is followed by Dr. Melida Sweet she denies any fevers or chills chest pain shortness of breath diarrhea. Denies any vaginal bleeding states she took no pain medication today Related Data Home Medications Medication Instructions Recorded Confirmed No Home Medications 05/29/20 05/29/20 Allergies Allergy/AdvReac Type Severity Reaction Status Date / Time garlic Allergy Unknown HIVES Verified 04/28/20 09:29 latex Allergy Unknown RASH Verified 04/28/20 09:29 sertraline Allergy Unknown suicidal Verified 04/28/20 09:29 thoughts Review of Systems Review of Systems: Narrative: Gen.: Denies fevers or chills ENT: Denies congestion Respiratory: Denies shortness of breath or cough CV: Denies chest pain or palpitations GI: See HPI denies burning, urgency, frequency or hematuria Musculoskeletal: Denies back pain or muscle pain Neuro: Denies numbness, tingling, weakness or focal weakness Skin: Denies rash Except as documented, all other systems reviewed and negative PMFSH Past Medical History Medical History (Updated 05/29/20 @ 20:29 by Dominick Monsalve DO) Astigmatism, bilateral Depression with anxiety Endometriosis IBS (irritable bowel syndrome) Migraine UTI (urinary tract infection) Surgical History Surgical History History of dilation and curettage History of exploratory laparotomy Family History Family History Grandparent Diabetes mellitus Family history of malignant neoplasm of brain Mother Diabetes mellitus Family history of elevated blood lipids Family history of anemia Father Hypertension Other Family history of malignant neoplasm of kidney Family history of pancreatic cancer Social History Social History Years smoked: 3 Smoking status: Former smoker Tobacco type: cigarettes Additional smoking assessment comments: QUIT 1 YEAR AGO Alcohol intake: never Gender identity (if verbalized by the patient): Female Spiritual care concerns: No Exam Narrative: Exam Narrative: APPEARANCE: No acute distress, nontoxic, resting in bed HEENT: Normocephalic, atraumatic, OMM RESPIRATORY: No respiratory distress, clear to auscultation bilaterally with no rhonchi wheezing or rales CARDIOVASCULAR: RRR s murmur ABDOMINAL: Soft, nondistended, tender palpation right lower quadrant left lower quadrant no tenderness in right upper quadrant left lower quadrant no rebound or guarding MUSCULOSKELETAl: Moves all extremities. No clubbing, cyanosis or edema. NEURO: Awake and alert. Following commands, speech normal, no focal deficits SKIN:: Warm, dry. Normal Color PSYCHIATRIC: Normal affect/mood Course Course Emergency Course: Discussed with Dr. Mayfield presentation work-up agrees with plan for discharge and follow-up as an outpatient Patient states that they are feeling much better at this time. States abdominal pain has resolved. Repeat abdominal exam shows the patient's abdomen to be soft and nontender. Discussed with patient results of workup and diagnosis. Discussed need for follow-up with primary care physician, reasons to return to the emergency department in proper use of medication. Patient understands and agrees to current treatment plan Vital Signs Vital signs: Vit
[2020-05-29] MEDS: SODIUM CHLORIDE 0.9% IV 1,000 ML 999 ML IV CONT (18:53)
[2020-05-29 19:01] LABS: Basophils Absolute Auto 0.1 K/mm3 (0.0-0.1); Basophils Percent Auto 0.5 % (0.2-1.2); Eosinophils Absolute Auto 0.2 K/mm3 (0-0.3); Eosinophils Percent Auto 1.8 % (0-4.4); Hematocrit 41.1 % (37.0-47.0); Hemoglobin 14.2 g/dL (12.0-15.0); Immature Granulocyte Absolute 0.03 K/mm3 (0.00-0.031); Immature Granulocyte Percent A 0.3 % (0-0.5); Lymphocytes Absolute Auto 2.12 K/mm3 (0.9-3.2); Lymphocytes Percent Auto 19.6 % (18.3-44.2); Mean Corpuscular HGB Conc 34.5 g/dl (32-36); Mean Corpuscular Hemoglobin 31.6 pg (26-34); Mean Corpuscular Volume 91.5 fl (80-100); Mean Platelet Volume 9.4 fl (7.4-10.4); Monocytes Absolute Auto 0.7 K/mm3 (0.1-0.6); Monocytes Percent Auto 6.8 % (2.6-8.5); Neutrophils Absolute Auto 7.7 K/mm3 (1.3-6.7); Platelet Count Result 348 k/mm3 (150-375); Red Blood Count 4.49 M/mm3 (4.2-5.4); Red Cell Distribution Width 11.8 % (11.5-14.5); White Blood Count 10.8 K/mm3 (4.5-10.0)
[2020-05-29 19:04] LABS: Add Urine Microscopic? YES; Appearance Urine Clear (Clear); Bilirubin Urine Negative (Negative); Blood Urine 2+ (Negative); Color Urine Colorless (Yellow); Glucose Urine UA Negative (Negative); Ketones Urine Negative (Negative); Leukocyte Esterase Ur Negative LEU/UL (Negative); Mucus Urine Rare /lpf; Nitrate Urine Negative (Negative); Protein Urine Negative (Negative); RBC Urine 0-2 /hpf (0-2); Specific Grav Ur 1.006 (1.001-1.035); Squamous Epithelial Cell Urine Rare /hpf (Few); Urobilinogen Urine Negative mg/dL (<2.0); WBC Urine 0-3 /hpf
--- NOTE | 2020-05-29 19:10 | PC.NURSE ---
Report to JOSE J Olea, to continue care.
--- NOTE | 2020-05-29 19:14 | PC.NURSE ---
Assumed care of pt. report from JOSE J Chi
[2020-05-29 19:28] VITALS: BP 113/67; PULSE 73; RESP 15; O2SAT 100
[2020-05-29 19:34] LABS: Alanine Aminotransferase 17 U/L (4-35); Albumin Level 4.4 g/dL (3.5-5.1); Alkaline Phosphatase 60 U/L (38-126); Anion Gap 9 mmol/L (8-16); Aspartate Amino Transferase 23 U/L (14-36); Bilirubin,Total 1.1 mg/dL (0.2-1.3); Blood Urea Nitrogen 11 mg/dL (7-17); Calcium 9.4 mg/dL (8.4-10.2); Carbon Dioxide 25 mmol/L (22-30); Chloride 104 mmol/L (98-107); Estimated CRCL calculation 90 ml/min; Estimated Glomerular Filt Rate > 60; Glucose 83 mg/dL (65-105); Potassium 3.2 mmol/L (3.4-5.0); Sodium 138 mmol/L (137-145)
[2020-05-29 20:30] VITALS: BP 115/87; PULSE 80; RESP 17; O2SAT 98
== END 2020-05-29 20:30 | disposition home or self-care (01) ==
PROVIDERS: Emergency Provider Emergency Medicine; PCP Family Medicine
DX: O26.891 Other specified pregnancy related conditions, first trimester (principal); R10.31 Right lower quadrant pain; R10.32 Left lower quadrant pain; Z87.891 Personal history of nicotine dependence
CPT/HCPCS: 36415; 76801; 80053; 81001; 81025; 84702; 85025; 96361; 96365; 99284; J0131; J7030

== ENCOUNTER 2020-06-07 16:19 | Outpatient (CLI) | payer OTHER, SELFPAY ==
--- NOTE | ~2020-06-07 | US_ITS ---
EXAMINATION: US OB <=14 wk fetus w TV DATE: 06/07/2020 17:20 INDICATION: Threatened TECHNIQUE: Real-time transabdominal and transvaginal obstetric ultrasound. FINDINGS: Comparison ultrasound dated 05/29/2020 The uterus measures 7.5 x 6.2 x 4.6 cm. There is an intrauterine gestational sac, with pole kermit ntified. The crown rump length measures 0.87 cm, which correlates with a estimated gestational age o f 6 weeks 6 days. heart tones are identified measuring 121 bpm. There is a 1.8 cm corpus lute al cyst of the right ovary. IMPRESSION: 1. SL IUP with an EGA of 6 weeks, 6 days (EDC by current ultrasound of 01/25/2021). Reviewed, dictated and finalized at location A. O CLERK IMPRESSION: 1. SL IUP with an EGA of 6 weeks, 6 days (EDC by current ultrasound of 01/26/20 21).
== END 2020-06-07 16:20 | disposition home or self-care (01) ==
PROVIDERS: PCP Family Medicine; Visit Provider Obstetrics & Gynecology
DX: O20.0 Threatened abortion (principal); Z3A.01 Less than 8 weeks gestation of pregnancy
CPT/HCPCS: 76801; 76817

== ENCOUNTER 2020-07-25 14:24 | Emergency (ER) | payer OTHER, SELFPAY ==
--- NOTE | ~2020-07-25 | XR_ITS ---
XR ankle RT min 3V 07/25/2020 16:00 INDICATION: Right ankle pain PROCEDURE: 4 views right ankle COMPARISON: 02/13/2014 FINDINGS: Fracture, dislocation or subluxation is not identified. The soft tissues appear within norm al limits. No foreign bodies are identified. IMPRESSION: 1: NO ACUTE BONE OR JOINT ABNORMALITY IDENTIFIED. Reviewed, dictated and finalized at location A. ON ROD INSERTER
[2020-07-25 15:29] VITALS: BP 100/59; PULSE 66; RESP 18; TEMP 37.1; O2SAT 100
--- NOTE | 2020-07-25 17:40 | ED.GENADULT ---
HPI - General Adult General Chief complaint: Extremity Injury, Lower Stated complaint: right ankle injury Time Seen by Provider: 07/25/20 16:06 Source: patient Mode of arrival: ambulatory Limitations: no limitations History of Present Illness HPI narrative: Patient is a 13-week female to presents with chief complaint of pain to the lateral aspect of her right ankle that began Friday after tripping while walking down an incline. Patient states that she did have more swelling to the lateral aspect but it has decreased some. Patient states she still feels pain with weightbearing and Tylenol only rates the discomfort down slightly. Patient states she is unsure if she inverted or everted the ankle. Patient denies any other injuries or symptoms. Related Data Home Medications Medication Instructions Recorded Confirmed metoclopramide HCl 07/25/20 Allergies Allergy/AdvReac Type Severity Reaction Status Date / Time garlic Allergy Unknown HIVES Verified 07/25/20 15:36 latex Allergy Unknown RASH Verified 07/25/20 15:36 sertraline Allergy Unknown suicidal Verified 07/25/20 15:36 thoughts Review of Systems Review of Systems: Narrative: CONSTITUTIONAL: Denies fever, chills, or sweats. EYES: Denies visual changes, redness, or discharge. ENT: Denies rhinorrhea, congestion, sore throat, or otalgia. CARDIOVASCULAR: Denies chest pain, palpitations, or edema. RESPIRATORY: Denies cough or dyspnea. GASTROINTESTINAL: Denies abdominal pain, nausea, vomiting, or diarrhea. GENITOURINARY: Denies dysuria or hematuria. SKIN: Denies rash or itching. MUSCULOSKELETAL: Reports ankle pain denies back pain, joint pain, or myalgia. NEUROLOGIC: Denies headache, numbness, dizziness, or weakness. PSYCHIATRIC: Denies anxiety or depression. [facility] Past Medical History Medical History (Updated 07/25/20 @ 17:45 by Tegan Portillo PA-C) Astigmatism, bilateral Depression with anxiety Endometriosis IBS (irritable bowel syndrome) Migraine UTI (urinary tract infection) Surgical History Surgical History History of dilation and curettage History of exploratory laparotomy Family History Family History Grandparent Diabetes mellitus Family history of malignant neoplasm of brain Mother Diabetes mellitus Family history of elevated blood lipids Family history of anemia Father Hypertension Other Family history of malignant neoplasm of kidney Family history of pancreatic cancer Social History Social History Years smoked: 3 Smoking status: Former smoker Tobacco type: cigarettes Additional smoking assessment comments: QUIT 1 YEAR AGO Alcohol intake: never Gender identity (if verbalized by the patient): Female Spiritual care concerns: No Exam Narrative: Exam Narrative: GENERAL: Well-appearing, well-nourished, and in no acute distress. HEAD: Normocephalic, atraumatic. EYES: PERRLA and EOMI. NECK: Supple. No adenopathy or masses. CHEST: Clear to auscultation. No respiratory distress. No wheezes rales or rhonchi HEART: Regular rate and rhythm. No murmur heard. Normal peripheral pulses. EXTREMITIES: There is tenderness to palpation over the lateral malleolus of the right ankle. There is no open wounds, ecchymosis or erythema. There is no pain proximally or distally. SKIN: Warm, dry, no rash. NEURO: No focal deficits. Alert and oriented x3. PSYCH: Normal mood and affect. Course Vital Signs Vital signs: Vital Signs Temperature 98.8 F 07/25/20 15:29 Pulse Rate 66 07/25/20 15:29 Respiratory Rate 18 07/25/20 15:29 Blood Pressure 100/59 L 07/25/20 15:29 Pulse Oximetry 100 07/25/20 15:29 Temperature 98.8 F 07/25/20 15:29 Pulse Rate 66 07/25/20 15:29 Respiratory Rate 18 07/25/20 15:29 Blood Pressure 100/59 L 07/25
== END 2020-07-25 18:15 | disposition home or self-care (01) ==
PROVIDERS: Emergency Provider Emergency Medicine; PCP Family Medicine
DX: O9A.211 Injury, poisoning and certain other consequences of external causes complicating pregnancy, first trimester (principal); S93.401A Sprain of unspecified ligament of right ankle, initial encounter; S96.911A Strain of unspecified muscle and tendon at ankle and foot level, right foot, initial encounter; O99.611 Diseases of the digestive system complicating pregnancy, first trimester; K58.9 Irritable bowel syndrome, unspecified; O34.81 Maternal care for other abnormalities of pelvic organs, first trimester; N80.9 Endometriosis, unspecified; Z87.440 Personal history of urinary (tract) infections; Z87.891 Personal history of nicotine dependence; Z3A.13 13 weeks gestation of pregnancy; W18.40XA Slipping, tripping and stumbling without falling, unspecified, initial encounter
CPT/HCPCS: 73610; 99283

== ENCOUNTER 2020-08-22 13:29 | Outpatient (CLI) | payer OTHER, SELFPAY ==
--- NOTE | ~2020-08-22 | US_ITS ---
EXAMINATION: US venous doppler [facility] DATE: 08/22/2020 14:14 INDICATION: Left upper limb pain. TECHNIQUE: Grayscale images without and with compression and Doppler images of the left upper extremi ty veins were obtained. COMPARISON: None. FINDINGS: The left internal jugular vein, subclavian vein, axillary vein, brachial vein, basilic vein, cephalic vein, radial vein, and ulnar vein are patent. IMPRESSION: 1. Patent bilateral upper extremity veins. No evidence of venous thrombosis. Reviewed, dictated and finalized at location B. L MAKER FIBERGLASS
== END 2020-08-22 13:30 | disposition home or self-care (01) ==
PROVIDERS: PCP Family Medicine; Visit Provider Physician Assistant Medical
DX: M79.89 Other specified soft tissue disorders (principal)
CPT/HCPCS: 93971

== ENCOUNTER 2020-08-29 15:14 | Observation (INO) | payer OTHER, SELFPAY ==
[2020-08-29 15:30] VITALS: BMI 21.0
[2020-08-29 15:36] VITALS: PULSE 71; O2SAT 99
[2020-08-29 15:37] VITALS: BP 117/59; PULSE 78
[2020-08-29 15:46] LABS: Glucose Point of Care 96 (65-105)
[2020-08-29 16:02] LABS: Add Urine Microscopic? NO; Appearance Urine Clear (Clear); Bilirubin Urine Negative (Negative); Blood Urine Negative (Negative); Color Urine Straw (Yellow); Glucose Urine UA Negative (Negative); Ketones Urine Negative (Negative); Leukocyte Esterase Ur Negative LEU/UL (NEGATIVE); Nitrate Urine Negative (Negative); Protein Urine Negative (Negative); Specific Grav Ur 1.008 (1.001-1.035); Urobilinogen Urine Negative mg/dL (<2.0)
--- NOTE | 2020-08-29 16:30 | PC.NURSE ---
called Dr. Melida Sweet and reported pt admission for dizziness and nausea. BS, Vital sign, UA result reported. discharge order received with phenegran Rx.
[2020-08-29] MEDS: PROMETHAZINE HCL 12.5 MG TABLET PO (16:48)
--- NOTE | 2020-08-30 07:47 | P.PNOB_ITS ---
OB - Triage/Final Diagnosis Visit Information Date of evaluation: 08/29/20 Reason for evaluation: other (nausea) Comments/Additional reasons for admission: I have assessed the risk for this patient, Christina Scott, and determined that she would benefit from [facility] care. Evaluation Laboratory results: Laboratory Tests 08/29/20 08/29/20 15:33 15:53 POC Capillary Glucose 96 Urine Color Straw Urine Appearance Clear Urine pH 6.0 Ur Specific [place] 1.008 Urine Protein Negative Urine Glucose (UA) Negative Urine Ketones Negative Ur Blood (Man) Negative Urine Nitrate Negative Urine Bilirubin Negative Urine Urobilinogen Negative Ur Leukocyte Esterase Negative Vital signs: Vital Signs - 24 hr 08/29/20 15:36 08/29/20 15:37 Pulse Rate 78 Blood Pressure 117/59 L Pulse Oximetry 99
== END 2020-08-29 16:50 | disposition home or self-care (01) ==
PROVIDERS: Admitting Provider Obstetrics & Gynecology; PCP Family Medicine; Visit Provider Obstetrics & Gynecology
DX: O26.899 Other specified pregnancy related conditions, unspecified trimester (principal); R11.0 Nausea; Z3A.00 Weeks of gestation of pregnancy not specified
CPT/HCPCS: 81003; 82948; 87086; 87088; A9270; G0378; G0379

== ENCOUNTER 2020-09-11 16:07 | Outpatient (CLI) | payer OTHER, SELFPAY ==
--- NOTE | ~2020-09-11 | US_ITS ---
EXAMINATION: US OB /maternal detail DATE: 09/11/2020 16:42 INDICATION: survey TECHNIQUE: Multiple obstetric sonographic images performed. FINDINGS: No prior studies for comparison. There is a single living fetus in transverse presentation. The placenta is posterior without placent a previa. Amniotic fluid volume is normal. cardiac activity and movement is noted with a heart rate of 144 beats per minute. The following anatomy was identified as normal: 4 chamber heart 3 vessel cord cord insertion kidneys urinary bladder stomach spine diaphragm ventricles cisterna magna cerebellum The following biometric data were obtained: BPD: 47mm corresponds to gestational age 20 weeks 2 days. Head circumference: 180 mm corresponds to gestational age 20 weeks 3 days. Abdominal circumference: 150 mm corresponds to gestational age 20 weeks 1 days. Femur length: 34 mm corresponds to gestational age 20 weeks 4 days. Head circumference to abdominal circumference ratio: 1.2 (normal range for expected gestational age i s 1.07-1.25). Estimated weight: 350 grams +/- 53 grams using Hadlock method. IMPRESSION: 1: Single living intrauterine with an estimated gestational age of 21weeks 0days by initial ultrasound measurements, with an EDC of 01/22/2021 in transverse presentation. 2. Normal survey. Reviewed, dictated and finalized at location A. IMPRESSION: 1: Single living intrauterine with an estimated gestational age of 21 weeks 0days by initial ultrasound measurements, with an EDC of 01/22/2021 in tr ansverse presentation. 2. Normal survey.
== END 2020-09-11 16:08 | disposition home or self-care (01) ==
PROVIDERS: PCP Family Medicine; Visit Provider Obstetrics & Gynecology
DX: Z34.80 Encounter for supervision of other normal pregnancy, unspecified trimester (principal); Z3A.21 21 weeks gestation of pregnancy
CPT/HCPCS: 76805

== ENCOUNTER 2020-11-21 16:51 | Emergency (ER) | payer OTHER, SELFPAY ==
--- NOTE | 2020-11-21 17:00 | ED.URI ---
HPI - URI/Sore Throat General Chief Complaint: Upper Respiratory Infection Stated Complaint: cough, vomiting, 30 wks Time Seen by Provider: 11/21/20 17:00 Source: patient and RN notes reviewed Mode of arrival: ambulatory Limitations: no limitations History of Present Illness HPI Narrative: 25 yo female presents to the [facility] with complaints of sore throat that started this morning. States that she had nasal congestion and a cough that started this morning. Sore throat that started yesterday. Patient reports that she ate lunch and vomited one time. No nausea. No abdominal pain. States that she called her primary care provider and was told to go to urgent care for evaluation. 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 30 weeks preg. Christianne vera POLE SHAVER. States that she took her son this morning who has similar symptoms to his primary care doctor and was diagnosed with croup Related Data Home Medications Medication Instructions Recorded Confirmed No Home Medications 11/21/20 11/21/20 Allergies Allergy/AdvReac Type Severity Reaction Status Date / Time garlic Allergy Unknown HIVES Verified 08/21/20 16:37 latex Allergy Unknown RASH Verified 08/21/20 16:37 sertraline Allergy Unknown suicidal Verified 08/21/20 16:37 thoughts Review of Systems Review of Systems: All systems reviewed & are unremarkable except as noted in HPI and below Constitutional: Constitutional: Reports no additional constitutional complaints, Denies chills, Denies fatigue and Denies fever(s) PMFSH Past Medical History Medical History Astigmatism, bilateral Depression with anxiety Endometriosis IBS (irritable bowel syndrome) Migraine UTI (urinary tract infection) Surgical History Surgical History History of dilation and curettage History of exploratory laparotomy Family History Family History Grandparent Diabetes mellitus Family history of malignant neoplasm of brain Mother Diabetes mellitus Family history of elevated blood lipids Family history of anemia Father Hypertension Other Family history of malignant neoplasm of kidney Family history of pancreatic cancer Social History Social History Years smoked: 3 Tobacco type: cigarettes Additional smoking assessment comments: QUIT 1 YEAR AGO Alcohol intake: never Gender identity (if verbalized by the patient): Female Spiritual care concerns: No Comments At the time of my signature, I reviewed and agree with the nursing past medical, surgical, social, and family history. There is no relevant family history pertinent to the patient complaint. Exam Const: General: no acute distress, alert and ill appearing acutely (mildly) Nutritional Appearance: well nourished Orientation/consciousness: patient oriented x3 HENMT: Head: normal to inspection, normocephalic and atraumatic Ears: hearing grossly normal bilaterally, external ears normal and TM's normal bilaterally General nose exam: Normal external nose present, Abnormal mucous membranes and turbinates present boggy; not erythematous and Nasal discharge present clear Face and sinus: normal facial exam and sinuses nontender Mouth: Yes Normal oral and palatal mucosa present, Yes lip normal, Yes oropharynx normal, Yes moist mucous membranes and No muffled voice Throat: tonsils normal, uvula midline and postnasal drainage Eyes: Conjunctivae: conjunctivae normal Pupils: Equal, round and reactive pupils present Neck: Neck: normal visual inspection, no lymphadenopathy and no meningeal signs Chest: Chest palpation & inspection: normal inspection of the chest Resp: Effort & Inspection: normal respiratory effort and no use of accessory muscles Auscultation: clear to auscultation bilaterally, no crackles, n
[2020-11-21 17:03] VITALS: BP 116/67; PULSE 63; RESP 18; TEMP 36.9; O2SAT 100
== END 2020-11-21 17:18 | disposition home or self-care (01) ==
PROVIDERS: Emergency Provider Nurse Practitioner; PCP Family Medicine
DX: J32.9 Chronic sinusitis, unspecified (principal); Z87.440 Personal history of urinary (tract) infections; K58.9 Irritable bowel syndrome, unspecified; N80.9 Endometriosis, unspecified; Z87.891 Personal history of nicotine dependence
CPT/HCPCS: 87081; 87880; 99213; G0463

== ENCOUNTER 2020-11-22 14:02 | Outpatient (CLI) | payer OTHER, SELFPAY ==
[2020-11-22 14:21] VITALS: BP 110/60; PULSE 79
[2020-11-22 14:30] VITALS: BP 109/59; PULSE 88
[2020-11-22 14:45] VITALS: BP 99/58; PULSE 79
[2020-11-22 15:00] VITALS: BP 99/55; PULSE 80
[2020-11-22 15:15] VITALS: BP 105/61; PULSE 96
[2020-11-22] MEDS: BETAMETHASONE SOD PHOS/ACETATE 30 MG/5 ML VIAL 12 MG IM (15:26)
[2020-11-22 15:28] VITALS: BP 105/61; PULSE 104
== END 2020-11-22 15:34 | disposition home or self-care (01) ==
LOC: ANHOBOP 14:06 → ANHOBPP 14:07
PROVIDERS: PCP Family Medicine; Visit Provider Student in an Organized Health Care Education/Training Program
DX: O26.879 Cervical shortening, unspecified trimester (principal); Z3A.00 Weeks of gestation of pregnancy not specified
CPT/HCPCS: 59025; 96372; 99199; J0702

== ENCOUNTER 2020-11-23 15:26 | Outpatient (CLI) | payer OTHER, SELFPAY ==
[2020-11-23] MEDS: BETAMETHASONE SOD PHOS/ACETATE 30 MG/5 ML VIAL 12 MG IM (15:36)
== END 2020-11-23 15:27 | disposition home or self-care (01) ==
LOC: ANHOBOP 15:30
PROVIDERS: PCP Family Medicine; Visit Provider Student in an Organized Health Care Education/Training Program
DX: O36.8990 Maternal care for other specified fetal problems, unspecified trimester, not applicable or unspecified (principal); Z3A.00 Weeks of gestation of pregnancy not specified
CPT/HCPCS: 96372; J0702

== ENCOUNTER 2020-12-11 07:54 | Observation (INO) | payer OTHER, SELFPAY ==
--- NOTE | ~2020-12-11 | US_ITS ---
EXAMINATION: US OB limited DATE: 12/11/2020 09:20 INDICATION: History of cervical shortening, third trimester TECHNIQUE: Real-time ultrasound of the pelvis was performed. The interpreting radiologist was not pre sent for the study. COMPARISON: 09/11/2020 FINDINGS: The cervical length is 2.1 cm. There is a single living fetus in vertex presentation. The p lacenta is posterior/fundal. cardiac activity and movement are noted. heart rate is 141 beats per minute (bpm). The amniotic fluid index is subjectively normal. IMPRESSION: 1. Single living fetus in vertex presentation. 2. Cervical length is 2.1 cm. Reviewed, dictated and finalized at location A.
[2020-12-11 08:10] VITALS: BMI 24.5
[2020-12-11 08:15] VITALS: BP 105/65; PULSE 71
[2020-12-11 08:30] VITALS: BP 107/55; PULSE 74
[2020-12-11 08:33] LABS: Add Urine Microscopic? NO; Appearance Urine Clear (Clear); Bilirubin Urine Negative (Negative); Blood Urine Negative (Negative); Color Urine Yellow (Yellow); Glucose Urine UA Negative (Negative); Ketones Urine Negative (Negative); Leukocyte Esterase Ur Negative LEU/UL (NEGATIVE); Nitrate Urine Negative (Negative); Protein Urine Negative (Negative); Urobilinogen Urine Negative mg/dL (<2.0)
[2020-12-11] MEDS: TERBUTALINE SULFATE 1 MG/ML VIAL 0.25 MG SUB-Q (08:56)
--- NOTE | 2020-12-11 09:19 | OBADM ---
This patient, Christina Scott, admitted to the OB room OB Post 116 for observation. Patient/family oriented to hospital policies and general routines including ID bracelet, bed and alarms, visiting hours, pain management, procedures, bathroom and other care routines, personal items, smoking policy, room service/diet, and visiting hours. Patient/Family are encouraged to report perceived risks to care and to ask questions if they do not understand what they are told or what they should do.
--- NOTE | 2020-12-11 09:20 | P.PNOB_ITS ---
OB - Triage/Final Diagnosis Visit Information Date of evaluation: 12/11/20 Reason for evaluation: threatened labor Comments/Additional reasons for admission: I have assessed the risk for this patient, Christina Scott, and determined that she would benefit from obse rvation care. Evaluation Laboratory results: Laboratory Tests 12/11/20 08:15 Urine Color Yellow Urine Appearance Clear Urine pH 7.0 Ur Specific [place] 1.010 Urine Protein Negative Urine Glucose (UA) Negative Urine Ketones Negative Ur Blood (Man) Negative Urine Nitrate Negative Urine Bilirubin Negative Urine Urobilinogen Negative Ur Leukocyte Esterase Negative Vital signs: Vital Signs - 24 hr 12/11/20 08:15 12/11/20 08:30 Pulse Rate 71 74 Blood Pressure 105/65 107/55 L
== END 2020-12-11 11:05 | disposition home or self-care (01) ==
PROVIDERS: Admitting Provider Obstetrics & Gynecology; PCP Family Medicine; Visit Provider Obstetrics & Gynecology
DX: O47.03 False labor before 37 completed weeks of gestation, third trimester (principal); Z3A.33 33 weeks gestation of pregnancy
CPT/HCPCS: 76815; 81003; 87086; 87088; 96372; G0378; G0379; J3105

== ENCOUNTER 2020-12-26 07:43 | Observation (INO) | payer OTHER, SELFPAY ==
[2020-12-26] VITALS (11 sets, daily range): BP systolic 99–114; BP diastolic 47–73; PULSE 63–109; BMI 25.0
--- NOTE | 2020-12-28 06:53 | PM.OBTRLD ---
OB - Triage/Final Diagnosis Visit Information Reason for evaluation: threatened labor Comments/Additional reasons for admission: I have assessed the risk for this patient, Christina Scott, and determined that she would benefit from observation care.
== END 2020-12-26 11:35 | disposition home or self-care (01) ==
PROVIDERS: Admitting Provider Obstetrics & Gynecology; PCP Family Medicine; Visit Provider Obstetrics & Gynecology
DX: O47.03 False labor before 37 completed weeks of gestation, third trimester (principal); Z3A.35 35 weeks gestation of pregnancy
CPT/HCPCS: 84112; G0378; G0379

== ENCOUNTER 2020-12-29 10:24 | Emergency (ER) | payer OTHER, SELFPAY ==
--- NOTE | ~2020-12-29 | XR_ITS ---
EXAMINATION: XR chest 1V portable EXAM DATE: 12/29/2020 11:38 INDICATION: shortness of breath X1 HR, 36 wks . Patient shielded. TECHNIQUE: Portable AP frontal chest x-ray was obtained. Comparison is made to prior examination from 01/19/2020. FINDINGS: The lungs are clear. There are no pleural effusions. The cardiomediastinal silhouette is within normal limits. There is no pneumothorax suspected. The bones and soft tissues are unremarkab le. IMPRESSION: No acute cardiopulmonary findings. Reviewed, dictated and finalized at location B.
[2020-12-29 10:28] VITALS: BP 112/75; PULSE 75; RESP 24; TEMP 37.1; O2SAT 100
--- NOTE | 2020-12-29 10:37 | ECG_ITS ---
Measurements Intervals [place] Rate: 77 P: 52 ID: 120 QRS: 73 QRSD: 92 T: 5 QT: 346 QTc: 393 Interpretive Statements SINUS RHYTHM BORDERLINE ST-T WAVE ABNORMALITY- ANT/INF LEADS BASELINE ARTIFACT- I, II, AVR, AVL BORDERLINE ECG Electronically Signed On 12-29-2020 10:52:14 CDT by Moo Magdaleno D.O.
[2020-12-29 10:58] LABS: Basophils Percent Auto 0.2 % (0.2-1.2); Eosinophils Absolute Auto 0.1 K/mm3 (0-0.3); Eosinophils Percent Auto 0.6 % (0-4.4); Hematocrit 39.5 % (37.0-47.0); Hemoglobin 13.2 g/dL (12.0-15.0); Immature Granulocyte Absolute 0.09 K/mm3 (0.00-0.031); Immature Granulocyte Percent A 0.9 % (0-0.5); Lymphocytes Absolute Auto 1.52 K/mm3 (0.9-3.2); Lymphocytes Percent Auto 15.9 % (18.3-44.2); Mean Corpuscular HGB Conc 33.4 g/dl (32-36); Mean Corpuscular Hemoglobin 31.1 pg (26-34); Mean Corpuscular Volume 93.2 fl (80-100); Monocytes Absolute Auto 0.8 K/mm3 (0.1-0.6); Monocytes Percent Auto 8.1 % (2.6-8.5); Neutrophils Absolute Auto 7.1 K/mm3 (1.3-6.7); Neutrophils Percent Auto 74.3 % (45.5-73.1); Platelet Count Result 303 k/mm3 (150-375); Red Blood Count 4.24 M/mm3 (4.2-5.4); Red Cell Distribution Width 12.5 % (11.5-14.5); White Blood Count 9.6 K/mm3 (4.5-10.0)
[2020-12-29 11:07] VITALS: BP 110/68; RESP 12; O2SAT 100
[2020-12-29 11:09] VITALS: PULSE 76
[2020-12-29 11:16] LABS: Anion Gap 6 mmol/L (8-16); Blood Urea Nitrogen 7 mg/dL (7-17); Calcium 8.8 mg/dL (8.4-10.2); Carbon Dioxide 23 mmol/L (22-30); Chloride 108 mmol/L (98-107); Estimated Glomerular Filt Rate > 60; Glucose 84 mg/dL (65-105); Sodium 137 mmol/L (137-145)
--- NOTE | 2020-12-29 13:29 | ED.SOB ---
HPI - SOB/Dyspnea General Chief Complaint: Shortness of Breath/Dyspnea Stated Complaint: SOB, 36 wks Time Seen by Provider: 12/29/20 11:11 History of Present Illness HPI Narrative: Patient is a 25-year-old female who is 36 weeks that presents to the ER with shortness of breath. Reports that she had a 30-minute episode of shortness of breath earlier this morning. No runny nose or sore throat or productive cough. No chest pain or chest pressure. No lower extremity swelling. No history of blood clot. No hemoptysis. Symptoms resolved on their own. Related Data Home Medications Medication Instructions Recorded Confirmed nifedipine 10 mg PO PRN PRN 12/11/20 12/11/20 rfbyvbsu-[id number]-Lo-FA 1 tablet PO DAILY 12/11/20 12/11/20 progesterone micronized 200 mg VAGINAL HS 12/11/20 12/11/20 promethazine 25 mg PO PRN PRN 12/11/20 12/11/20 metronidazole VAGINAL 12/29/20 Allergies Allergy/AdvReac Type Severity Reaction Status Date / Time garlic Allergy Unknown HIVES Verified 12/29/20 10:34 latex Allergy Unknown RASH Verified 12/29/20 10:34 sertraline Allergy Unknown suicidal Verified 12/29/20 10:34 thoughts Review of Systems Review of Systems: All systems reviewed & are unremarkable except as noted in HPI and below Constitutional: Constitutional: Denies chills, Denies fever(s) and Denies weakness ENT: Denies nasal congestion and Denies sore throat Cardiovascular: Cardiovascular: Denies chest pain, Denies rapid heart rate and Denies radiating jaw, neck or arm pain Respiratory: Respiratory: Denies cough, Reports dyspnea and Denies wheezing Gastrointestinal: Gastrointestinal: Denies nausea and Denies vomiting [facility] Past Medical History Medical History (Updated 12/29/20 @ 14:33 by Kyree Quintana MD) Astigmatism, bilateral Depression with anxiety Endometriosis IBS (irritable bowel syndrome) Migraine UTI (urinary tract infection) Surgical History Surgical History History of dilation and curettage History of exploratory laparotomy Family History Family History Grandparent Diabetes mellitus Family history of malignant neoplasm of brain Mother Diabetes mellitus Family history of elevated blood lipids Family history of anemia Father Hypertension Other Family history of malignant neoplasm of kidney Family history of pancreatic cancer Social History Social History Years smoked: 3 Tobacco type: cigarettes Additional smoking assessment comments: QUIT 1 YEAR AGO Alcohol intake: never Gender identity (if verbalized by the patient): Female Spiritual care concerns: No Exam Narrative: Exam Narrative: GENERAL: Well-appearing, well-nourished, and in no acute distress. HEAD: Normocephalic, atraumatic. ENT: Mucous membranes moist. CHEST: Clear to auscultation. No respiratory distress. HEART: Regular rate and rhythm. Normal peripheral pulses. ABDOMEN: Soft, nontender, enlarged uterus with positive movement. EXTREMITIES: Normal range of motion. No edema. SKIN: Warm, dry, no rash. NEURO: Alert and oriented x3. PSYCH: Normal mood and affect. Course Course Emergency Course: No dyspnea or hypoxia here. Work-up unremarkable. Discharge home. Likely anxiety related. Vital Signs Vital signs: Vital Signs Temperature 98.7 F 12/29/20 10:28 Pulse Rate 75 12/29/20 10:28 Respiratory Rate 24 H 12/29/20 10:28 Blood Pressure 112/75 12/29/20 10:28 Pulse Oximetry 100 12/29/20 10:28 Temperature 98.7 F 12/29/20 10:28 Pulse Rate 86 12/29/20 13:35 Respiratory Rate 24 H 12/29/20 13:35 Blood Pressure 93/52 L 12/29/20 13:35 Pulse Oximetry 99 12/29/20 13:35 MDM - SOB/Dyspnea Lab Data Result diagrams: 12/29/20 10:48 12/29/20 10:48 Labs: Lab Results 12/29/20
[2020-12-29 13:35] VITALS: BP 93/52; PULSE 86; RESP 24; O2SAT 99
[2020-12-29 14:45] VITALS: BP 109/62; PULSE 82; RESP 16; O2SAT 98
== END 2020-12-29 14:46 | disposition home or self-care (01) ==
PROVIDERS: Emergency Provider Emergency Medicine; PCP Family Medicine
DX: O26.893 Other specified pregnancy related conditions, third trimester (principal); R06.00 Dyspnea, unspecified; O99.891 Other specified diseases and conditions complicating pregnancy; N80.9 Endometriosis, unspecified; O99.613 Diseases of the digestive system complicating pregnancy, third trimester; K58.9 Irritable bowel syndrome, unspecified; Z87.440 Personal history of urinary (tract) infections; R94.31 Abnormal electrocardiogram [ECG] [EKG]; Z3A.36 36 weeks gestation of pregnancy
CPT/HCPCS: 36415; 71045; 80048; 85025; 93005; 99283

== ENCOUNTER 2021-01-08 19:28 | Observation (INO) | payer OTHER, SELFPAY ==
[2021-01-08 19:40] VITALS: BMI 25.1
--- NOTE | 2021-01-08 22:39 | OBADM ---
This patient, Christina Scott, admitted to the OB room Labor/Delivery/Recovery 109 for observation. Patient/family oriented to hospital policies and general routines including ID bracelet, bed and alarms, visiting hours, pain management, procedures, bathroom and other care routines, personal items, smoking policy, room service/diet, and visiting hours. Patient/Family are encouraged to report perceived risks to care and to ask questions if they do not understand what they are told or what they should do.
--- NOTE | 2021-01-24 15:34 | PM.OBTRLD ---
OB - Triage/Final Diagnosis Visit Information Comments/Additional reasons for admission: I have assessed the risk for this patient, Christina Scott, and determined that she would benefit from observation care. Final Diagnosis (1) False labor: Code(s): O47.9 - False labor, unspecified Status: Acute
== END 2021-01-08 22:50 | disposition home or self-care (01) ==
PROVIDERS: Admitting Provider Obstetrics & Gynecology; PCP Family Medicine; Visit Provider Obstetrics & Gynecology
DX: O47.9 False labor, unspecified (principal); Z3A.00 Weeks of gestation of pregnancy not specified
CPT/HCPCS: G0378; G0379

== ENCOUNTER 2021-01-14 23:07 | Observation (INO) | payer OTHER, SELFPAY ==
[2021-01-15 00:32] VITALS: BMI 25.2
--- NOTE | 2021-01-15 00:32 | LDADM ---
This patient, Christina Scott, was admitted to Labor/Delivery/Recovery 105 on 01/14/21 at 23:07. Plans for labor, pain management and were discussed with patient. Patient/family oriented to hospital policies and general routines including ID bracelet, bed and alarms, visiting hours, pain management, procedures, bathroom and other care routines, personal items, smoking policy, room service/diet and guest tray routines, security routines, and visiting hours. Patient/Family are encouraged to report perceived risks to care and to ask questions if they do not understand what they are told or what they should do. See OBIX for further documentation.
--- NOTE | 2021-01-15 06:21 | PM.OBTRLD ---
OB - Triage/Final Diagnosis Visit Information Date of evaluation: 01/14/21 Reason for evaluation: threatened labor Comments/Additional reasons for admission: I have assessed the risk for this patient, Christina [place], and determined that she would benefit from observation care.
== END 2021-01-15 00:41 | disposition home or self-care (01) ==
PROVIDERS: Admitting Provider Student in an Organized Health Care Education/Training Program; PCP Family Medicine; Visit Provider Student in an Organized Health Care Education/Training Program
DX: O47.1 False labor at or after 37 completed weeks of gestation (principal); Z3A.38 38 weeks gestation of pregnancy
CPT/HCPCS: G0378; G0379

== ENCOUNTER 2021-01-19 13:26 | Inpatient (IN) | payer OTHER, SELFPAY ==
[2021-01-19] VITALS (52 sets, daily range): BP systolic 70–192; BP diastolic 29–160; PULSE 25–193; RESP 18; TEMP 36.9–37.6; O2SAT 74–100
--- NOTE | 2021-01-19 13:53 | LDADM ---
This patient, Christina Scott, was admitted to on at . Plans for labor, pain management and were discussed with patient. Patient is oriented to hospital policies and general routines including ID bracelet, bed and alarms, visiting hours, pain management, procedures, bathroom and other care routines, personal items, smoking policy, room service/diet and guest tray routines, security routines, call light and visiting hours. Patient is encouraged to report perceived risks to care and to ask questions if she does not understand what she is told or what she should do. See OBIX for further documentation.
[2021-01-19 14:18] LABS: Basophils Percent Auto 0.2 % (0.2-1.2); Eosinophils Percent Auto 0.2 % (0-4.4); Hematocrit 40.5 % (37.0-47.0); Hemoglobin 13.4 g/dL (12.0-15.0); Immature Granulocyte Absolute 0.02 K/mm3 (0.00-0.031); Immature Granulocyte Percent A 0.2 % (0-0.5); Lymphocytes Absolute Auto 1.04 K/mm3 (0.9-3.2); Lymphocytes Percent Auto 11.9 % (18.3-44.2); Mean Corpuscular HGB Conc 33.1 g/dl (32-36); Mean Corpuscular Hemoglobin 30.3 pg (26-34); Mean Corpuscular Volume 91.6 fl (80-100); Mean Platelet Volume 9.9 fl (7.4-10.4); Monocytes Absolute Auto 0.4 K/mm3 (0.1-0.6); Monocytes Percent Auto 4.9 % (2.6-8.5); Neutrophils Absolute Auto 7.2 K/mm3 (1.3-6.7); Neutrophils Percent Auto 82.6 % (45.5-73.1); Platelet Count Result 251 k/mm3 (150-375); Red Blood Count 4.42 M/mm3 (4.2-5.4); Red Cell Distribution Width 12.7 % (11.5-14.5); White Blood Count 8.7 K/mm3 (4.5-10.0)
[2021-01-19] MEDS: LACTATED RINGERS 1,000 ML 125 ML IV CONT ×2 (14:18→17:50)
[2021-01-19] MEDS: AMPICILLIN 2 GM/NS 100 ML 2 GM/100 ML BAG IVPB (14:19)
--- NOTE | 2021-01-19 16:02 | WPDANESEPP ---
Anes - Eval Pre Procedure Procedure: labor epidural Date/Time: 01/19/21 16:02 Surgeon: jackson vera Pre Op Diagnosis: SROM Patient Data Age: 25 Gender: F Height: Weight: Last Vital Signs Temp 36.9 C 01/19/21 13:00 Pulse 71 01/19/21 15:28 BP 111/73 01/19/21 15:28 Allergies Allergy/AdvReac Type Severity Reaction Status Date / Time garlic Allergy Unknown HIVES Verified 01/19/21 13:51 latex Allergy Unknown RASH Verified 01/19/21 13:51 sertraline Allergy Unknown suicidal Verified 01/19/21 13:51 thoughts Home Medications Medication Instructions Recorded Confirmed Type eeukwbzh-[id number]-Pw-FA 1 tablet PO DAILY 12/11/20 01/19/21 History promethazine 25 mg PO PRN PRN 12/11/20 01/19/21 History Laboratory Tests 01/19/21 01/19/21 14:06 14:06 WBC 8.7 K/mm3 K/mm3 (4.5-10.0) RBC 4.42 M/mm3 M/mm3 (4.2-5.4) Hgb 13.4 g/dL g/dL (12.0-15.0) Hct 40.5 % % (37.0-47.0) MCV 91.6 fl fl (80-100) MCH 30.3 pg pg (26-34) MCHC 33.1 g/dl g/dl (32-36) RDW 12.7 % % (11.5-14.5) Plt Count 251 k/mm3 k/mm3 (150-375) MPV 9.9 fl fl (7.4-10.4) Immature Gran % (Auto) 0.2 % % (0-0.5) Neut % (Auto) 82.6 % H % (45.5-73.1) Lymph % (Auto) 11.9 % L % (18.3-44.2) [place] % (Auto) 4.9 % % (2.6-8.5) Eos % (Auto) 0.2 % % (0-4.4) Baso % (Auto) 0.2 % % (0.2-1.2) Lymph # (Auto) 1.04 K/mm3 K/mm3 (0.9-3.2) [place] # (Auto) 0.4 K/mm3 K/mm3 (0.1-0.6) Eos # (Auto) 0.0 K/mm3 K/mm3 (0-0.3) Baso # (Auto) 0.0 K/mm3 K/mm3 (0.0-0.1) Abs Immat Gran (auto) 0.02 K/mm3 K/mm3 (0.00-0.031) Absolute Neuts (auto) 7.2 K/mm3 H K/mm3 (1.3-6.7) Absolute Nucleated RBC 0.0 K/mm3 K/mm3 (0.0-0.012) Nucleated RBC % 0.0 % % (0.0-0.2) RPR Pending Patient hx anesthesia problems: none Family hx anesthesia problems: none [facility] Past Medical History Medical History (Updated 12/30/20 @ 00:00 by Isaias Daemon) Astigmatism, bilateral Depression with anxiety Endometriosis IBS (irritable bowel syndrome) Migraine UTI (urinary tract infection) Surgical History Surgical History History of dilation and curettage History of exploratory laparotomy Family History Family History Grandparent Diabetes mellitus Family history of malignant neoplasm of brain Mother Diabetes mellitus Family history of elevated blood lipids Family history of anemia Father Hypertension Other Family history of malignant neoplasm of kidney Family history of pancreatic cancer Social History Social History Years smoked: 3 Smoking status: Never smoker Tobacco type: cigarettes Additional smoking assessment comments: QUIT 1 YEAR AGO Alcohol intake: never Substance use: never Gender identity (if verbalized by the patient): Female Spiritual care concerns: No Exam Day of Procedure 01/19/21 16:02
--- NOTE | 2021-01-19 18:18 | WPDOBADMIT ---
Obstetrics - Admit Note Admission Note: complete and pushing record reviewed. No pertinent additions to the history and/or any subsequent changes in the physical findings that are not consistent with the expected course of the were found. Additions to the history and/or subsequent changes in the physical findings follow. None.
--- NOTE | 2021-01-19 18:19 | PM.OBPRVD ---
OB - Delivery Note Procedure Delivery date: 01/19/21 Procedure: Intrapartal events: None Delivery monitor: external FHT, external uterine and internal FHT Route of delivery: Laceration Description: None Delivery repair: chromic Specimen: No Quantitative Blood Loss (ml): 75 Anesthesia type: Epidural Disposition: floor Baby Date of : 01/19/21 Time of : 18:05 Weeks of gestation at delivery: 39 Infant gender: Female Weight (pounds): 6 Weight (ounces): 4 presentation: vertex position: Left Occiput Anterior Placenta delivery description: Spontaneous cord vessel description: 3 Vessels score one minute: 9 score five minutes: 9
[2021-01-19] MEDS: OXYTOCIN 30 UNITS/NS 500 ML 30 UNITS/500 ML BAG 125 UNITS IV CONT (18:47)
[2021-01-19] MEDS: WITCH HAZEL 40 PADS 1 PAD (20:36)
[2021-01-19] MEDS: BENZOCAINE 20% AER SPR (*SP) 56 GM CAN 1 SPRAY (20:36)
[2021-01-19] MEDS: IBUPROFEN 600 MG TABLET (22:35)
[2021-01-20 04:30] VITALS: BP 96/55; PULSE 60; RESP 16; TEMP 36.6; O2SAT 97
[2021-01-20 05:12] LABS: Hematocrit 35.9 % (37.0-47.0)
[2021-01-20] MEDS: MULTIVIT/MIN/PREN/FOL AC/IRON TABLET 1 TAB PO (07:36)
[2021-01-20] MEDS: IBUPROFEN 600 MG TABLET PO ×2 (07:36→17:18)
[2021-01-20] MEDS: DOCUSATE SODIUM 100 MG CAPSULE PO ×2 (07:36→17:17)
[2021-01-20] MEDS: LANOLIN (LANSINOH) 7.5 GM CREAM 1 APPLIC TOPICAL ×2 (07:37→17:18)
[2021-01-20 07:53] VITALS: BP 99/57; PULSE 62; RESP 18; TEMP 36.7
--- NOTE | 2021-01-20 08:43 | PM.OBPNVD ---
OB - PN: Subj Subjective Date/time seen: 01/20/21 08:43 Patient comments: no complaints and pain well controlled baby status: doing well OB - PN: Obj Data Labs CBC & Chem 7: 01/20/21 04:02 Labs: Laboratory Results - last 24 hr 01/19/21 01/19/21 01/20/21 14:06 14:06 04:02 WBC 8.7 RBC 4.42 Hgb 13.4 12.0 Hct 40.5 35.9 L MCV 91.6 MCH 30.3 MCHC 33.1 RDW 12.7 Plt Count 251 MPV 9.9 Immature Gran % (Auto) 0.2 Neut % (Auto) 82.6 H Lymph % (Auto) 11.9 L [place] % (Auto) 4.9 Eos % (Auto) 0.2 Baso % (Auto) 0.2 Lymph # (Auto) 1.04 [place] # (Auto) 0.4 Eos # (Auto) 0.0 Baso # (Auto) 0.0 Abs Immat Gran (auto) 0.02 Absolute Neuts (auto) 7.2 H Absolute Nucleated RBC 0.0 Nucleated RBC % 0.0 Blood Type O Positive Antibody Screen Negative OB - PN A/P Plan day: 1 Plan: routine care Time Spent With Patient Time: Total time spent is greater than 50% in coordination of care (as documented) at patient's floor/unit and/or counseling patient: Time with patient: less than 15 minutes Review of Systems Review of Systems: All systems reviewed & are unremarkable except as noted in HPI and below Exam Const: General: no acute distress Eyes: General: appearance normal, both eyes and all related structures Neck: Neck: supple and no JVD Thyroid: thyroid normal Resp: Effort & Inspection: normal respiratory effort Auscultation: clear to auscultation bilaterally Cardio: Rate: regular rate Rhythm: regular rhythm GI: Inspection: non-distended GI Palp: Yes Soft to palpation, No Tenderness to palpation present (GI) and No Guarding due to palpation present (GI) Auscultation: normal bowel sounds : General: Yes bladder normal to palpation External Female Exam: normal external appearance Speculum Exam - Vagina: normal vaginal discharge and No vaginal bleeding Speculum Exam - Cervix: nontender Bimanual exam- vagina & uterus: bladder normal to palpation and No Cervical tenderness present OB/external & speculum: No vaginal bleeding Skin: General skin exam: no rashes or lesions noted Extrem: General: normal to inspection and no edema Psych: Mental Status: mental status grossly normal Affect: normal affect
--- NOTE | 2021-01-20 09:02 | WPDANLDPN2 ---
Anes-Prog Note L&D Date/Time: 01/20/21 09:02 Comfortable throughout: labor Neuraxial method: epidural Epidural/Spinal procedure site: clean & non-tender Neuro status: Neuro function grossly intact. Cardiovascular status: normal Respiratory status: normal Airway patency: baseline Mental status: baseline Post-Op hydration status: normal Vital Signs: Last Vital Signs Temp 36.7 C 01/20/21 07:53 Pulse 62 01/20/21 07:53 Resp 18 01/20/21 07:53 BP 99/57 L 01/20/21 07:53 Pulse Ox 97 01/20/21 04:30 Pain score (VAS): 3 I/O: Intake & Output 01/19/21 01/20/21 01/20/21 23:59 07:59 15:59 Intake Total 1000 Output Total 50 Balance 950 Post-procedural complaints: none Patient feedback: Patient satisfied with anesthetic care.
[2021-01-20 12:30] VITALS: BP 102/54; PULSE 60; RESP 16; TEMP 36.9; O2SAT 97
[2021-01-20] MEDS: WITCH HAZEL 40 PADS 1 PAD TOPICAL (17:17)
[2021-01-20] MEDS: BENZOCAINE 20% AER SPR (*SP) 56 GM CAN 1 SPRAY TOPICAL (17:17)
[2021-01-20 20:00] VITALS: BP 107/71; PULSE 70; RESP 16; TEMP 37.3; O2SAT 98
[2021-01-21] MEDS: IBUPROFEN 600 MG TABLET PO (07:54)
[2021-01-21] MEDS: DOCUSATE SODIUM 100 MG CAPSULE PO (07:55)
[2021-01-21] MEDS: MULTIVIT/MIN/PREN/FOL AC/IRON TABLET 1 TAB PO (07:55)
[2021-01-21 08:00] VITALS: BP 97/63; PULSE 70; RESP 18; TEMP 37.6
--- NOTE | 2021-01-21 08:00 | PC.NURSE ---
Patient was given the opportunity to view the discharge video Mother & Baby Care, The First Two Weeks and to ask questions. Patient declined viewing the video and has been given the mother/baby guide for home reference.
--- NOTE | 2021-01-21 08:08 | PM.OBPNVD ---
OB - PN: Subj Subjective Date/time seen: 01/21/21 08:08 Patient comments: no complaints and pain well controlled baby status: doing well OB - PN: Obj Data Labs CBC & Chem 7: 01/20/21 04:02 OB - PN A/P Plan day: 2 Plan: routine care, discharge home and follow up 6 weeks Time Spent With Patient Time: Total time spent is greater than 50% in coordination of care (as documented) at patient's floor/unit and/or counseling patient: Time with patient: less than 15 minutes Review of Systems Review of Systems: All systems reviewed & are unremarkable except as noted in HPI and below Exam Const: General: no acute distress Eyes: General: appearance normal, both eyes and all related structures Neck: Neck: supple and no JVD Thyroid: thyroid normal Resp: Effort & Inspection: normal respiratory effort Auscultation: clear to auscultation bilaterally Cardio: Rate: regular rate Rhythm: regular rhythm GI: Inspection: non-distended GI Palp: Yes Soft to palpation, No Tenderness to palpation present (GI) and No Guarding due to palpation present (GI) Auscultation: normal bowel sounds : General: Yes bladder normal to palpation External Female Exam: normal external appearance Speculum Exam - Vagina: normal vaginal discharge and No vaginal bleeding Speculum Exam - Cervix: nontender Bimanual exam- vagina & uterus: bladder normal to palpation and No Cervical tenderness present OB/external & speculum: No vaginal bleeding Skin: General skin exam: no rashes or lesions noted Extrem: General: normal to inspection and no edema Psych: Mental Status: mental status grossly normal Affect: normal affect
--- NOTE | 2021-01-21 08:08 | PM.DS ---
DS: Admitting Diagnosis Admitting Diagnosis term iup labor DS: Summary Hospital Course Hospital Course: The patient was admitted in active labor. She underwent spontaneous vaginal delivery of a female. A 48hour course was unremarkable. She was preoperatively treated for group B strep. She was up, avoiding the difficulty, ambulating, and general without complaints Time Spent with Patient Time attestation: Total time spent providing and/or coordinating discharge services: Exam Const: General: no acute distress Eyes: General: appearance normal, both eyes and all related structures Neck: Neck: supple and no JVD Thyroid: thyroid normal Resp: Effort & Inspection: normal respiratory effort Auscultation: clear to auscultation bilaterally Cardio: Rate: regular rate Rhythm: regular rhythm GI: Inspection: non-distended GI Palp: Yes Soft to palpation, No Tenderness to palpation present (GI) and No Guarding due to palpation present (GI) Auscultation: normal bowel sounds : General: Yes bladder normal to palpation External Female Exam: normal external appearance Speculum Exam - Vagina: normal vaginal discharge and No vaginal bleeding Speculum Exam - Cervix: nontender Bimanual exam- vagina & uterus: bladder normal to palpation and No Cervical tenderness present OB/external & speculum: No vaginal bleeding Skin: General skin exam: no rashes or lesions noted Extrem: General: normal to inspection and no edema Psych: Mental Status: mental status grossly normal Affect: normal affect Discharge Plan Discharge Attending physician on discharge: Eric Oviedo Discharging Clinician: Fan Mathews Patient Disposition: Home, Self-Care Activity: may shower and may drive after 2 weeks Diet: regular Wound Care Instructions: follow printed instructions Patient Instructions: Antibiotic Form Stand Alone Forms: General Discharge Information Follow-up/Referrals: Fan Mathews MD [Physician] - Discharge Medications: Continued kltamlyr-akv-Ps-FA 1 mg Tablet 1 tablet PO DAILY RF: 0 promethazine 25 mg tablet 25 mg PO PRN PRN (Reason: Nausea) RF: 0 Date of admission: 01/19/21 13:26 Primary Care Provider: Deepika Tian Admitting Provider: Fan Mathews Attending physician on admission: Fna Mathews Condition: Stable
--- NOTE | 2021-01-21 09:49 | PC.NURSE ---
Self care and infant care discharge instructions given including follow up visit date and time. Pt. verbalized understanding. No questions or concerns verbalized. Very pleasant and cooperative. FOB at side.
[2021-01-21] MEDS: TETANUS,DIPHTHERIA,AC PERTUSSIS ADULT (0.5 ML) BOOSTRIX IM (11:20)
[2021-01-22 08:04] LABS: Rapid Plasma Reagin Non-Reactive (NonReactive)
[2021-01-23 11:12] VITALS: BP 110/70; PULSE 67; RESP 20; TEMP 36.8; O2SAT 98
== END 2021-01-21 11:47 | disposition home or self-care (01) | DRG 560 ==
LOC: ANHLDR 18:19 → ANHOB2 21:44
PROVIDERS: Admitting Provider Obstetrics & Gynecology; PCP Family Medicine; Visit Provider Obstetrics & Gynecology
DX: O99.824 Streptococcus B carrier state complicating childbirth (principal); Z3A.39 39 weeks gestation of pregnancy; Z37.0 Single live birth
CPT/HCPCS: 36415; 85014; 85018; 85025; 86592; 86850; 86900; 86901; 90715; A9270; J0290; J2590; J2795; J7120

== ENCOUNTER 2021-01-23 20:10 | Emergency (ER) | payer OTHER, SELFPAY ==
--- NOTE | ~2021-01-23 | XR_ITS ---
EXAMINATION: XR lumbar spine 2-3V DATE: 01/23/2021 22:25 INDICATION: Right shoulder pain radiating down the spine. TECHNIQUE: 3 views of lumbar spine were obtained. COMPARISON: CT abdomen and pelvis 04/07/2020 FINDINGS: Bone alignment is normal. Vertebral body heights and intervertebral disc heights are normal . The facet joints are unremarkable. IMPRESSION: 1. Normal lumbar spine. Reviewed, dictated and finalized at location A. IMPRESSION: 1. Normal lumbar spine.
--- NOTE | ~2021-01-23 | XR_ITS ---
EXAMINATION: XR thoracic spine 3V DATE: 01/23/2021 22:25 INDICATION: Right shoulder pain radiating down the spine. TECHNIQUE: 3 views of thoracic spine were obtained. COMPARISON: None. FINDINGS: There is 5 degrees dextrocurvature of thoracolumbar spine. Vertebral body heights and inter vertebral disc heights are normal. IMPRESSION: 1. No etiology for the patient's symptoms. Reviewed, dictated and finalized at location A.
[2021-01-23 20:16] VITALS: BP 111/74; PULSE 64; RESP 18; TEMP 36.4; O2SAT 100
[2021-01-23] MEDS: LORazepam INJ (*CRX) 2 MG/ML VIAL 1 MG IV PUSH (22:41)
[2021-01-23] MEDS: KETOROLAC 30 MG/ML VIAL (*BKC) IV PUSH (22:41)
[2021-01-23 22:43] VITALS: BP 105/62; PULSE 57; RESP 18; O2SAT 98
--- NOTE | 2021-01-23 23:22 | ED.GENADULT ---
HPI - General Adult General Chief complaint: Back Pain/Injury Stated complaint: back pain Time Seen by Provider: 01/23/21 21:34 History of Present Illness HPI narrative: Patient is a 25-year-old female presents the emergency department chief complaint of back pain. Patient reports that she was walking and her child walked after and grabbed her from behind patient states that she jumped his head and felt spasming through her back. The patient states the pain is sharp reports that it is worse with movement and improved with rest. Patient reports that she had no bowel or bladder dysfunction. Related Data Home Medications Medication Instructions Recorded Confirmed [id number] 1 tablet PO DAILY 12/11/20 01/19/21 promethazine 25 mg PO PRN PRN 12/11/20 01/19/21 Allergies Allergy/AdvReac Type Severity Reaction Status Date / Time garlic Allergy Unknown HIVES Verified 01/23/21 20:19 latex Allergy Unknown RASH Verified 01/23/21 20:19 sertraline Allergy Unknown suicidal Verified 01/23/21 20:19 thoughts Review of Systems Review of Systems: A 10 system review of systems was completed on the patient and is negative except for what is stated in the HPI. Nursing and ancillary documentation was reviewed. [facility] Past Medical History Medical History (Updated 01/23/21 @ 23:24 by Yosef Patel MD) Astigmatism, bilateral Depression with anxiety Endometriosis IBS (irritable bowel syndrome) Migraine UTI (urinary tract infection) Surgical History Surgical History History of dilation and curettage History of exploratory laparotomy Family History Family History Grandparent Diabetes mellitus Family history of malignant neoplasm of brain Mother Diabetes mellitus Family history of elevated blood lipids Family history of anemia Father Hypertension Other Family history of malignant neoplasm of kidney Family history of pancreatic cancer Social History Social History Years smoked: 3 Smoking status: Never smoker Tobacco type: cigarettes Additional smoking assessment comments: QUIT 1 YEAR AGO Alcohol intake: never Substance use: never Gender identity (if verbalized by the patient): Female Spiritual care concerns: No Exam Narrative: GENERAL: Well-appearing, well-nourished, and in no acute distress. HEAD: Normocephalic, atraumatic. EYES: PERRLA and EOMI. ENT: Nares clear, no rhinorrhea or epistaxis. Mucous membranes moist. NECK: Supple. CHEST: Clear to auscultation. No respiratory distress. HEART: Regular rate and rhythm. No murmur heard. Normal peripheral pulses. ABDOMEN: Soft, nontender, nondistended, normal active bowel sounds. Back: There is spasm present in the paraspinous muscles along the upper thoracic and lumbar region. EXTREMITIES: Normal range of motion. No edema. SKIN: Warm, dry, no rash. NEURO: No focal deficits. Alert and oriented x3. PSYCH: Normal mood and affect. Course Course Emergency Course: Plain film x-ray showed no evidence of fracture or abnormality Patient was treated with Toradol and a dose of Ativan for muscle relaxer Vital Signs Vital signs: Vital Signs Temperature 36.4 C 01/23/21 20:16 Pulse Rate 64 01/23/21 20:16 Respiratory Rate 18 01/23/21 20:16 Blood Pressure 111/74 01/23/21 20:16 Pulse Oximetry 100 01/23/21 20:16 Temperature 36.4 C 01/23/21 20:16 Pulse Rate 57 L 01/23/21 22:43 Respiratory Rate 18 01/23/21 22:43 Blood Pressure 105/62 01/23/21 22:43 Pulse Oximetry 98 01/23/21 22:43 Medical Decision Making Vital Signs Vital Signs: Vital Signs Temperature 36.4 C 01/23/21 20:16 Pulse Rate 64 01/23/21 20:16 Respiratory Rate 18 01/23/21 20:16 Blood Pressure 111/74 01/23/21 20:16 Pulse Oximetr
[2021-01-23 23:35] VITALS: BP 123/96; PULSE 61; RESP 16; O2SAT 100
== END 2021-01-23 23:39 | disposition home or self-care (01) ==
PROVIDERS: Emergency Provider Emergency Medicine; PCP Family Medicine
DX: M62.830 Muscle spasm of back (principal); Z87.891 Personal history of nicotine dependence; H52.203 Unspecified astigmatism, bilateral; F41.9 Anxiety disorder, unspecified; F32.9 Major depressive disorder, single episode, unspecified
CPT/HCPCS: 72072; 72100; 96374; 96375; 99284; J1885; J2060

== ENCOUNTER 2021-02-01 10:35 | Inpatient (IN) | payer OTHER, SELFPAY ==
--- NOTE | ~2021-02-01 | US_ITS ---
EXAMINATION: US pelvic complete w TV DATE: 02/01/2021 17:10 INDICATION: bleeding. TECHNIQUE: Multiple transabdominal sonographic images of the pelvis were obtained. COMPARISON: None. FINDINGS: The uterus measures 12.0 x 5.6 x 8.8 cm. There is no free fluid in the pelvis. The endometrial comple x measures 18 mm in thickness. There is material of mixed echogenicity in the endometrial complex. Th ere is increased vascularity in the endometrial complex on color flow imaging. The right ovary measur es 2.1 x 1.4 x 1.4 cm. The left ovary is not visualized. IMPRESSION: 1. Thickened endometrial complex suspicious for retained products of conception. Reviewed, dictated and finalized at location A. IMPRESSION: 1. Thickened endometrial complex suspicious for retained products of conception .
[2021-02-01 11:06] VITALS: BP 115/75; PULSE 92; RESP 16; TEMP 37.1; O2SAT 99
[2021-02-01 12:14] LABS: Basophils Percent Auto 0.4 % (0.2-1.2); Eosinophils Absolute Auto 0.1 K/mm3 (0-0.3); Eosinophils Percent Auto 1.8 % (0-4.4); Hematocrit 45.1 % (37.0-47.0); Hemoglobin 14.8 g/dL (12.0-15.0); Immature Granulocyte Absolute 0.02 K/mm3 (0.00-0.031); Immature Granulocyte Percent A 0.3 % (0-0.5); Lymphocytes Absolute Auto 1.64 K/mm3 (0.9-3.2); Lymphocytes Percent Auto 21.6 % (18.3-44.2); Mean Corpuscular HGB Conc 32.8 g/dl (32-36); Mean Corpuscular Hemoglobin 29.4 pg (26-34); Mean Corpuscular Volume 89.5 fl (80-100); Mean Platelet Volume 8.8 fl (7.4-10.4); Monocytes Absolute Auto 0.4 K/mm3 (0.1-0.6); Monocytes Percent Auto 4.6 % (2.6-8.5); Neutrophils Absolute Auto 5.4 K/mm3 (1.3-6.7); Neutrophils Percent Auto 71.3 % (45.5-73.1); Platelet Count Result 451 k/mm3 (150-375); Red Blood Count 5.04 M/mm3 (4.2-5.4); Red Cell Distribution Width 12.3 % (11.5-14.5); White Blood Count 7.6 K/mm3 (4.5-10.0)
[2021-02-01 12:43] LABS: Beta HCG Quantitative 5.31 mIU/ML
--- NOTE | 2021-02-01 14:57 | ED.GENADULT ---
HPI - General Adult General Chief complaint: Vaginal Bleeding Stated complaint: gave 2 weeks ago, passing large clots Time Seen by Provider: 02/01/21 14:50 Source: patient and family Mode of arrival: ambulatory Limitations: no limitations History of Present Illness HPI narrative: Patient was sent in by her OBs office for evaluation of heavy bleeding . She is 2 weeks she states she is passing large clots and bleeding, this started last evening while she was feeding her baby. She does have a history of retained placenta in her first . She is denies any fever, no dysuria, no bowel dysfunction. Onset (ago): hour(s) Quality: sharp (RLQ) Pain Consistency: constant Associated symptoms: denies other symptoms Related Data Home Medications Medication Instructions Recorded Confirmed [id number] 1 tablet PO DAILY 12/11/20 01/19/21 promethazine 25 mg PO PRN PRN 12/11/20 01/19/21 Allergies Allergy/AdvReac Type Severity Reaction Status Date / Time garlic Allergy Unknown HIVES Verified 01/23/21 20:19 latex Allergy Unknown RASH Verified 01/23/21 20:19 sertraline Allergy Unknown suicidal Verified 01/23/21 20:19 thoughts Review of Systems Review of Systems: All systems reviewed & are unremarkable except as noted in HPI and below PMFSH Past Medical History Medical History (Updated 02/01/21 @ 18:41 by Yazmin Haas PA-C) Astigmatism, bilateral Depression with anxiety Endometriosis IBS (irritable bowel syndrome) Migraine UTI (urinary tract infection) Surgical History Surgical History History of dilation and curettage History of exploratory laparotomy Family History Family History Grandparent Diabetes mellitus Family history of malignant neoplasm of brain Mother Diabetes mellitus Family history of elevated blood lipids Family history of anemia Father Hypertension Other Family history of malignant neoplasm of kidney Family history of pancreatic cancer Social History Social History Years smoked: 3 Smoking status: Never smoker Tobacco type: cigarettes Additional smoking assessment comments: QUIT 1 YEAR AGO Alcohol intake: never Substance use: never Gender identity (if verbalized by the patient): Female Spiritual care concerns: No Exam Const: General: healthy appearing, no acute distress and alert Orientation/consciousness: patient oriented x3 HENMT: Head: normal to inspection Resp: Effort & Inspection: normal respiratory effort Auscultation: clear to auscultation bilaterally Cardio: Rate: regular rate Rhythm: regular rhythm GI: GI Palp: Yes Soft to palpation and Yes Tenderness to palpation present (GI) (Right lower quadrant and flank) Auscultation: normal bowel sounds : General: Yes no CVA tenderness External Female Exam: normal external appearance and normal appearance of the urethra Speculum Exam - Vagina: normal appearance of the vagina and vaginal bleeding (cervix closed, large clot at os. ) Bimanual Exam- Adnexa, other: adnexae mobile and tender on the right Skin: General skin exam: normal color Extrem: General: normal to inspection Psych: Mental Status: mental status grossly normal Course Course Emergency Course: Spoke with Dr. Metcalf regarding ultrasound findings. He would like her admitted to his service for D/C in am. Findings discussed with patient. Vital Signs Vital signs: Vital Signs Temperature 37.1 C 02/01/21 11:06 Pulse Rate 92 02/01/21 11:06 Respiratory Rate 16 02/01/21 11:06 Blood Pressure 115/75 02/01/21 11:06 Pulse Oximetry 99 02/01/21 11:06 Temperature 36.8 C 02/01/21 19:42 Pulse Rate 76 02/01/21 19:42 Respiratory Rate 18 02/01/21 19:42 Blood Pressure 125/75 02/01/21 19:42 Pulse Oximetry 10
[2021-02-01 18:12] VITALS: BP 126/80; PULSE 76; RESP 18; TEMP 37.1; O2SAT 99
[2021-02-01 19:41] VITALS: PULSE 76; O2SAT 100
[2021-02-01 19:42] VITALS: BP 125/75; PULSE 76; RESP 18; TEMP 36.8
[2021-02-01] MEDS: ACETAMINOPHEN 500 MG TABLET 1000 MG PO (20:35)
[2021-02-01 20:36] VITALS: BMI 23.2
--- NOTE | 2021-02-01 20:37 | OBADM ---
This patient, Christina Scott, admitted to the OB room [facility] for observation. Patient/family oriented to hospital policies and general routines including ID bracelet, bed and alarms, visiting hours, pain management, procedures, bathroom and other care routines, personal items, smoking policy, room service/diet, and visiting hours. Patient/Family are encouraged to report perceived risks to care and to ask questions if they do not understand what they are told or what they should do.
--- NOTE | 2021-02-01 21:05 | PC.NURSE ---
2054 - Pt educated on use of breast pump and benefits of while here overnight. Pt will call out when finished pumping and breast milk will be placed in breast milk fridge with pt label.
[2021-02-01 23:59] VITALS: PULSE 84; O2SAT 98
[2021-02-02] VITALS (8 sets, daily range): BP systolic 108–126; BP diastolic 68–89; PULSE 57–123; RESP 15–20; TEMP 36.6; O2SAT 98–100
[2021-02-02] MEDS: LACTATED RINGERS 1,000 ML 125 ML IV CONT ×2 (00:13→09:15)
--- NOTE | 2021-02-02 00:27 | PC.NURSE ---
0000 - pt states her bleeding has been good/scant and denies any pain or needs at this time. Plan of care discussed with pt (NPO - water jug removed); pt agrees and has no questions or concerns at this time. Pt will call out with any needs.
--- NOTE | 2021-02-02 06:42 | PM.IMHP ---
H&P: HPI History of Present Illness Date/Time: 02/02/21 06:42 25-year-old who came to the ER bleeding with retained placenta she was watched overnight will undergo suction dilatation curettage this morning risks and benefits reviewed in great detail Chief Complaint: vaginal bleeding Review of Systems Review of Systems: All systems reviewed & are unremarkable except as noted in HPI and below PMFSH Past Medical History Medical History Astigmatism, bilateral Depression with anxiety Endometriosis IBS (irritable bowel syndrome) Migraine UTI (urinary tract infection) Surgical History Surgical History History of dilation and curettage History of exploratory laparotomy Family History Family History Grandparent Diabetes mellitus Family history of malignant neoplasm of brain Mother Diabetes mellitus Family history of elevated blood lipids Family history of anemia Father Hypertension Other Family history of malignant neoplasm of kidney Family history of pancreatic cancer Social History Social History Years smoked: 3 Smoking status: Never smoker Tobacco type: cigarettes Additional smoking assessment comments: QUIT 1 YEAR AGO Alcohol intake: never Substance use: never Gender identity (if verbalized by the patient): Female Spiritual care concerns: No Meds Home Medications and Allergies Home Medications Medication Instructions Recorded Confirmed Type [id number] 1 tablet PO DAILY 12/11/20 02/01/21 History cyclobenzaprine 10 mg PO TID PRN #21 tablet 01/23/21 02/01/21 Rx ibuprofen 600 mg PO TID PRN #21 tablet 01/23/21 02/01/21 Rx Allergies Allergy/AdvReac Type Severity Reaction Status Date / Time garlic Allergy Unknown HIVES Verified 01/23/21 20:19 latex Allergy Unknown RASH Verified 01/23/21 20:19 sertraline Allergy Unknown suicidal Verified 01/23/21 20:19 thoughts Vital Signs Vital Signs - 24 hr 02/01/21 11:06 02/01/21 18:12 02/01/21 19:41 Temperature 98.8 F 98.7 F Pulse Rate 92 76 Respiratory Rate 16 18 Blood Pressure 115/75 126/80 Pulse Oximetry 99 99 100 02/01/21 19:42 02/01/21 23:59 02/02/21 00:00 Temperature 98.2 F 97.8 F Pulse Rate 76 70 Respiratory Rate 18 18 Blood Pressure 125/75 109/69 Pulse Oximetry 98 Exam Const: General: no acute distress Eyes: General: appearance normal, both eyes and all related structures Neck: Neck: supple and no JVD Thyroid: thyroid normal Resp: Effort & Inspection: normal respiratory effort Auscultation: clear to auscultation bilaterally Cardio: Rate: regular rate Rhythm: regular rhythm GI: Inspection: non-distended GI Palp: Yes Soft to palpation, No Tenderness to palpation present (GI) and No Guarding due to palpation present (GI) Auscultation: normal bowel sounds : External Female Exam: normal external appearance Speculum Exam - Vagina: normal appearance of the vagina Speculum Exam - Cervix: Cervical os closed ( cervix open with blood present) Bimanual exam- vagina & uterus: enlarged Skin: General skin exam: no rashes or lesions noted Extrem: General: normal to inspection and no edema Psych: Mental Status: mental status grossly normal Affect: normal affect H&P: Results Labs Labs: Short CBC 02/01/21 Range/Units 11:55 WBC 7.6 (4.5-10.0) K/mm3 Hgb 14.8 (12.0-15.0) g/dL Hct 45.1 (37.0-47.0) % Plt Count 451 H D (150-375) k/mm3 Assessment and Plan Additional Plan impression: Retained placenta Plan: Suction dilatation and curettage
--- NOTE | 2021-02-02 06:44 | WPDHPUPDATE1 ---
History and Physical Update Update Date/Time: 02/02/21 06:44 History and Physical has been reviewed, including an updated exam of the patient. There are NO changes in the patient's condition. Risks, benefits, and alternatives have been discussed and questions answered. Patient agrees to proceed with procedure.
--- NOTE | 2021-02-02 07:42 | PC.NURSE ---
Pt states Dr. Melida Sweet and Dr. Mayfield have both been in to see her this morning and Dr. Melida Sweet told her she was on the schedule for a D&C later today. Pt instructed to call if she should start having an increase in her vaginal bleeding again or passing any clots- verbalizes understanding. Pt remains NPO.
--- NOTE | 2021-02-02 09:22 | PC.NURSE ---
Pt finished pumping and breast milk placed in refrigerator. Pt informed she is on the schedule for a D&C at 1315 today, she will go to pre-op at least an hour before then and will go to PACU for recovery before coming back to her room here in OB- verbalizes understanding.
--- NOTE | 2021-02-02 12:16 | PC.NURSE ---
Patient taken to OR by pre-op RN via stretcher for procedure.
--- NOTE | 2021-02-02 12:19 | WPDANESEPPF ---
Anes - Initial Pre Proc Eval Procedure: Operation Date: 02/02/21 13:15 Proposed Procedures p Suction Dilation and Curettage - Fan Mathews MD Date/Time: 02/02/21 12:19 Surgeon: Harjeet Mayfield MD Pre Op Diagnosis: Post- Bleeding,Retained Placental Product Patient Data Age: 25 Gender: F Height: 1.55 m Weight: 55.8 kg Last Vital Signs Temp 36.6 C 02/02/21 00:00 Pulse 71 02/02/21 12:11 Resp 18 02/02/21 00:00 BP 108/68 02/02/21 12:11 Pulse Ox 99 02/02/21 12:11 Allergies Allergy/AdvReac Type Severity Reaction Status Date / Time garlic Allergy Unknown HIVES Verified 01/23/21 20:19 latex Allergy Unknown RASH Verified 01/23/21 20:19 sertraline Allergy Unknown suicidal Verified 01/23/21 20:19 thoughts Home Medications Medication Instructions Recorded Confirmed Type bsjjrszp-scu-Cj-FA 1 tablet PO DAILY 12/11/20 02/01/21 History cyclobenzaprine 10 mg PO TID PRN #21 tablet 01/23/21 02/01/21 Rx ibuprofen 600 mg PO TID PRN #21 tablet 01/23/21 02/01/21 Rx hydrocodone-acetaminophen 1 tablet PO Q4H PRN #20 tablet 02/02/21 Rx Laboratory Tests 02/01/21 02/01/21 11:54 11:55 WBC 7.6 K/mm3 K/mm3 (4.5-10.0) RBC 5.04 M/mm3 M/mm3 (4.2-5.4) Hgb 14.8 g/dL g/dL (12.0-15.0) Hct 45.1 % % (37.0-47.0) MCV 89.5 fl fl (80-100) MCH 29.4 pg pg (26-34) MCHC 32.8 g/dl g/dl (32-36) RDW 12.3 % % (11.5-14.5) Plt Count 451 k/mm3 H D k/mm3 (150-375) MPV 8.8 fl fl (7.4-10.4) Immature Gran % (Auto) 0.3 % % (0-0.5) Neut % (Auto) 71.3 % % (45.5-73.1) Lymph % (Auto) 21.6 % % (18.3-44.2) [place] % (Auto) 4.6 % % (2.6-8.5) Eos % (Auto) 1.8 % % (0-4.4) Baso % (Auto) 0.4 % % (0.2-1.2) Lymph # (Auto) 1.64 K/mm3 K/mm3 (0.9-3.2) [place] # (Auto) 0.4 K/mm3 K/mm3 (0.1-0.6) Eos # (Auto) 0.1 K/mm3 K/mm3 (0-0.3) Baso # (Auto) 0.0 K/mm3 K/mm3 (0.0-0.1) Abs Immat Gran (auto) 0.02 K/mm3 K/mm3 (0.00-0.031) Absolute Neuts (auto) 5.4 K/mm3 K/mm3 (1.3-6.7) Absolute Nucleated RBC 0.0 K/mm3 K/mm3 (0.0-0.012) Nucleated RBC % 0.0 % % (0.0-0.2) Beta HCG, Quant 5.31 mIU/ML mIU/ML Patient hx anesthesia problems: none Family hx anesthesia problems: none PMFSH Past Medical History Medical History Astigmatism, bilateral Depression with anxiety Endometriosis IBS (irritable bowel syndrome) Migraine UTI (urinary tract infection) Surgical History Surgical History History of dilation and curettage History of exploratory laparotomy Family History Family History Grandparent Diabetes mellitus Family history of malignant neoplasm of brain Mother Diabetes mellitus Family history of elevated blood lipids Family history of anemia Father Hypertension Other Family history of malignant neoplasm of kidney Family history of pancreatic cancer Social History Social History Years smoked: 3 Smoking status: Never smoker Tobacco type: cigarettes Additional smoking assessment comments: QUIT 1 YEAR AGO Alcohol intake: never Substance use: never Gender identity (if verbalized by the patient): Female Spiritual care concerns: No Anes - Eval Final PreProcedure Day of Procedure 02/02/21 12:19 Patient weight: normal Heart: regular rate and rhythm Lungs: clear to auscultation Airway: Mallampati scale class II Neurological: alert and oriented Last oral intake: >/= 8 hours ASA classification: II Emergent: no Anesthetic plan: proceed Anesthesia type and monitoring: general GIVS and standard monitoring Informed Consent: The patient's anesthetic plan and its attendant risk
[2021-02-02] MEDS: LACTATED RINGERS 1,000 ML 30 ML IV CONT (12:20)
--- NOTE | 2021-02-02 12:58 | W.PM.PROC2 ---
Procedure Note - Detailed Date of Procedure 02/02/21 Pre-op Diagnosis Post- Bleeding,Retained Placental Product Post-op Diagnosis same Procedure Performed Suction dilatation and curettage Surgeon Fan Mathews MD Anesthesia MAC and local Indications this is a 25-year-old out from with bleeding and retained placenta Findings placenta Description of Procedure the patient was prepped draped in the normal sterile fashion placed in dorsal lithotomy position. Under excellent IV sedation weighted speculum placed posterior fornix vagina. Anterior lip of the cervix grasped with a single-tooth tenaculum and 2.5cc of 1% xylocaine anesthesia placed at 2, 4, 8, 10:00 a.m. of the cervix. Uterus sounded to 10cm. Serial dilatation with fragmented dilators performed followed by passage of the 10. Suction curette. A moderate amount of placental tissue and clots was removed. When a good grating sound was heard, the instruments removed. The patient tolerated the procedure well. All sponge, needle, instrument counts were correct. There were no immediate complications Estimated Blood Loss 50 Drains No Packing No Pathology yes Complications No immediate complications Condition stable Disposition PACU
--- NOTE | 2021-02-02 14:16 | PC.NURSE ---
Pt returned to room from PACU. To the bathroom with assist. Pt would like to order a tray before being discharged.
--- NOTE | 2021-02-07 07:45 | P.PNOB_ITS ---
OB - Triage/Final Diagnosis Visit Information Reason for evaluation: other ( bleeding) Comments/Additional reasons for admission: I have assessed the risk for this patient, Christina Scott, and determined that she would benefit from observation care. Evaluation Laboratory results: Laboratory Tests 02/01/21 02/01/21 11:54 11:55 WBC 7.6 RBC 5.04 Hgb 14.8 Hct 45.1 MCV 89.5 MCH 29.4 MCHC 32.8 RDW 12.3 Plt Count 451 H D MPV 8.8 Immature Gran % (Auto) 0.3 Neut % (Auto) 71.3 Lymph % (Auto) 21.6 [place] % (Auto) 4.6 Eos % (Auto) 1.8 Baso % (Auto) 0.4 Lymph # (Auto) 1.64 [place] # (Auto) 0.4 Eos # (Auto) 0.1 Baso # (Auto) 0.0 Abs Immat Gran (auto) 0.02 Absolute Neuts (auto) 5.4 Absolute Nucleated RBC 0.0 Nucleated RBC % 0.0 Beta HCG, Quant 5.31
--- NOTE | 2021-02-14 07:42 | PM.OBTRLD ---
OB - Triage/Final Diagnosis Visit Information Date of evaluation: 02/06/21 Reason for evaluation: other ( bleeding) Comments/Additional reasons for admission: I have assessed the risk for this patient, Christina Scott, and determined that she would benefit from observation care. Evaluation Laboratory results: Laboratory Tests 02/01/21 02/01/21 11:54 11:55 WBC 7.6 RBC 5.04 Hgb 14.8 Hct 45.1 MCV 89.5 MCH 29.4 MCHC 32.8 RDW 12.3 Plt Count 451 H D MPV 8.8 Immature Gran % (Auto) 0.3 Neut % (Auto) 71.3 Lymph % (Auto) 21.6 [place] % (Auto) 4.6 Eos % (Auto) 1.8 Baso % (Auto) 0.4 Lymph # (Auto) 1.64 [place] # (Auto) 0.4 Eos # (Auto) 0.1 Baso # (Auto) 0.0 Abs Immat Gran (auto) 0.02 Absolute Neuts (auto) 5.4 Absolute Nucleated RBC 0.0 Nucleated RBC % 0.0 Beta HCG, Quant 5.31
--- NOTE | 2021-02-19 06:29 | PM.DS ---
DS: Admitting Diagnosis Admitting Diagnosis bleeding DS: Summary Hospital Course Hospital Course: the patient was admitted with bleeding a week out from delivery. She underwent suction dilatation and curettage in the a.m. and was discharged home and she was voiding ambulating and generally without complaints Time Spent with Patient Time attestation: Total time spent providing and/or coordinating discharge services: Exam Const: General: no acute distress Eyes: General: appearance normal, both eyes and all related structures Neck: Neck: supple and no JVD Thyroid: thyroid normal Resp: Effort & Inspection: normal respiratory effort Auscultation: clear to auscultation bilaterally Cardio: Rate: regular rate Rhythm: regular rhythm GI: Inspection: non-distended GI Palp: Yes Soft to palpation, No Tenderness to palpation present (GI) and No Guarding due to palpation present (GI) Auscultation: normal bowel sounds : General: Yes bladder normal to palpation External Female Exam: normal external appearance Speculum Exam - Vagina: normal vaginal discharge and No vaginal bleeding Speculum Exam - Cervix: nontender Bimanual exam- vagina & uterus: bladder normal to palpation and No Cervical tenderness present OB/external & speculum: No vaginal bleeding Skin: General skin exam: no rashes or lesions noted Extrem: General: normal to inspection and no edema Psych: Mental Status: mental status grossly normal Affect: normal affect DS: Data Data Completed and Pending Completed studies during hospitalization: Pending at discharge 02/02/21 12:46 Surgical [PTH] Routine Discharge Plan Discharge Attending physician on discharge: Fan Mathews Consulting providers: Yazmin Haas ; Allen Rowley V. Discharging Clinician: Fan Mathews Patient Disposition: Home, Self-Care Activity: may shower, no straining and pelvic rest Diet: heart healthy Wound Care Instructions: follow printed instructions Discharge Instructions: Call for follow up appointment with Dr. Wiseman in [address] Wiseman if saturating a pad an hour. Fever above 100.4. Stand Alone Forms: General Discharge Information Follow-up/Referrals: Fan Mathews MD [Physician] - Discharge Medications: New hydrocodone-acetaminophen 5-325 mg tablet 1 tablet PO Q4H PRN (Reason: pain) Qty: 20 RF: 0 Continued [id number] 1 mg Tablet 1 tablet PO DAILY RF: 0 cyclobenzaprine 10 mg tablet 10 mg PO TID PRN (Reason: muscle spasm) Qty: 21 RF: 0 ibuprofen 600 mg tablet 600 mg PO TID PRN (Reason: pain) Qty: 21 RF: 0 Date of admission: 02/01/21 18:37 Primary Care Provider: Deepika Tian Admitting Provider: Harjeet Mayfield Attending physician on admission: Fan Mathews Condition: Stable
== END 2021-02-02 15:15 | disposition home or self-care (01) | DRG 544 ==
LOC: ANHED 18:41 → ANHOBPP 02-02 07:34
PROVIDERS: Emergency Medicine; Admitting Provider Student in an Organized Health Care Education/Training Program; Emergency Provider Emergency Medicine; PCP Family Medicine; Visit Provider Obstetrics & Gynecology
PROC: 10D17ZZ Extraction of Products of Conception, Retained, Via Natural or Artificial Opening (ICD-10-PCS; principal; 2021-02-02 13:15)
DX: O72.2 Delayed and secondary postpartum hemorrhage (principal); O99.63 Diseases of the digestive system complicating the puerperium; K58.9 Irritable bowel syndrome, unspecified; O99.345 Other mental disorders complicating the puerperium; F41.8 Other specified anxiety disorders
CPT/HCPCS: 36415; 76830; 76856; 84702; 85025; 88305; 99285; A9270; J2250; J2704; J3010; J7120

== ENCOUNTER 2021-05-11 02:22 | Emergency (ER) | payer OTHER, SELFPAY ==
--- NOTE | 2021-05-11 02:34 | ED.URI ---
HPI - URI/Sore Throat General Chief Complaint: Upper Respiratory Infection Stated Complaint: fever Time Seen by Provider: 05/11/21 02:28 Source: patient History of Present Illness HPI Narrative: Patient presents with fever diffuse body aches congestion and sore throat for the past couple days. Her symptoms are getting worse so she came to the ER for evaluation she has not noted any shortness of breath or focal chest pain. She also had some mild nausea. Reports pain with swallowing. Her sore throat is achy, constant, again worse with swallowing, no radiation. She has been using Tylenol ibuprofen at home to assist with her fevers. She denies any emesis or diarrhea. She has not vaccinations Covid but does not have any known exposures. She reports her children have similar symptoms Related Data Home Medications Medication Instructions Recorded Confirmed [id number] 1 tablet PO DAILY 12/11/20 02/01/21 Allergies Allergy/AdvReac Type Severity Reaction Status Date / Time garlic Allergy Unknown HIVES Verified 05/11/21 02:58 latex Allergy Unknown RASH Verified 05/11/21 02:58 sertraline Allergy Unknown suicidal Verified 05/11/21 02:58 thoughts Review of Systems Review of Systems: CONSTITUTIONAL: Denies fever, chills, or sweats. EYES: Denies visual changes, redness, or discharge. ENT: Reports congestion and sore throat CARDIOVASCULAR: Denies chest pain, palpitations, or edema. RESPIRATORY: Denies cough or dyspnea. GASTROINTESTINAL: Denies abdominal pain, vomiting, or diarrhea. GENITOURINARY: Denies dysuria or hematuria. SKIN: Denies rash or itching. MUSCULOSKELETAL: Denies back pain, joint pain NEUROLOGIC: Denies headache, numbness, dizziness, or weakness. PSYCHIATRIC: Denies anxiety or depression. All systems reviewed & are unremarkable except as noted in HPI and below PMFSH Past Medical History Medical History (Updated 05/11/21 @ 03:15 by Mack Suarez MD) Astigmatism, bilateral Depression with anxiety Endometriosis IBS (irritable bowel syndrome) Migraine UTI (urinary tract infection) Surgical History Surgical History History of dilation and curettage History of exploratory laparotomy Family History Family History Grandparent Diabetes mellitus Family history of malignant neoplasm of brain Mother Diabetes mellitus Family history of elevated blood lipids Family history of anemia Father Hypertension Other Family history of malignant neoplasm of kidney Family history of pancreatic cancer Social History Social History Years smoked: 3 Smoking status: Never smoker Tobacco type: cigarettes Additional smoking assessment comments: QUIT 1 YEAR AGO Alcohol intake: never Substance use: never Gender identity (if verbalized by the patient): Female Spiritual care concerns: No Exam Narrative: GENERAL: Well-appearing, well-nourished, and in no acute distress. HEAD: Normocephalic, atraumatic. EYES: PERRLA and EOMI. ENT: Nares clear, no rhinorrhea or epistaxis. Mucous membranes moist. Erythema in the posterior pharynx no exudates no uvular deviation NECK: Supple. No masses. No JVD CHEST: Clear to auscultation. No respiratory distress. No wheezes rales or rhonchi HEART: Regular rate and rhythm. No murmur heard. Normal peripheral pulses. EXTREMITIES: Normal range of motion. No edema. SKIN: Warm, dry, no rash. NEURO: No focal deficits. Alert and oriented x3. PSYCH: Normal mood and affect. Course Reevaluation(s) Reevaluation #1: Patient resting comfortably results plan reviewed with patient. Patient comfortable outpatient plan. Date: 05/11/21 Time: 03:12 Vital Signs Vital signs: Vital Signs Temperature 37.1 C 05/11/21 02:39 Pulse Rate 85 05/11/21 02:39 Respiratory Rate 18 05/11/21 02:39
[2021-05-11 02:39] VITALS: BP 125/60; PULSE 85; RESP 18; TEMP 37.1; O2SAT 100
[2021-05-11 02:43] VITALS: O2SAT 100
[2021-05-11 16:37] LABS: SARS-CoV-2 RNA PCR Negative
== END 2021-05-11 03:22 | disposition home or self-care (01) ==
PROVIDERS: Emergency Provider Emergency Medicine; PCP Family Medicine
DX: J06.9 Acute upper respiratory infection, unspecified (principal); Z20.822 Contact with and (suspected) exposure to COVID-19; H52.203 Unspecified astigmatism, bilateral; N80.9 Endometriosis, unspecified; K58.9 Irritable bowel syndrome, unspecified; Z87.440 Personal history of urinary (tract) infections; Z87.891 Personal history of nicotine dependence
CPT/HCPCS: 87081; 87804; 87880; 99283; C9803; U0003; U0005

== ENCOUNTER → 2021-05-29 03:13 | Outpatient (CLI) | payer OTHER, SELFPAY ==
[2021-05-29 20:27] LABS: SARS-CoV-2 RNA PCR Negative
== END ==
PROVIDERS: Visit Provider Obstetrics & Gynecology
DX: Z01.812 Encounter for preprocedural laboratory examination (principal); Z20.822 Contact with and (suspected) exposure to COVID-19
CPT/HCPCS: C9803; U0003; U0005

== ENCOUNTER 2021-05-29 09:11 | Outpatient (CLI) | payer OTHER, SELFPAY ==
[2021-05-29 09:41] LABS: Basophils Percent Auto 0.8 % (0.2-1.2); Eosinophils Absolute Auto 0.2 K/mm3 (0-0.3); Eosinophils Percent Auto 3.1 % (0-4.4); Hematocrit 43.6 % (37.0-47.0); Hemoglobin 14.3 g/dL (12.0-15.0); Immature Granulocyte Absolute 0.01 K/mm3 (0.00-0.031); Immature Granulocyte Percent A 0.2 % (0-0.5); Lymphocytes Absolute Auto 1.46 K/mm3 (0.9-3.2); Mean Corpuscular HGB Conc 32.8 g/dl (32-36); Mean Corpuscular Hemoglobin 29.9 pg (26-34); Mean Corpuscular Volume 91.2 fl (80-100); Monocytes Absolute Auto 0.5 K/mm3 (0.1-0.6); Monocytes Percent Auto 9.9 % (2.6-8.5); Neutrophils Absolute Auto 2.7 K/mm3 (1.3-6.7); Platelet Count Result 318 k/mm3 (150-375); Red Blood Count 4.78 M/mm3 (4.2-5.4); White Blood Count 4.9 K/mm3 (4.5-10.0)
== END 2021-05-29 09:12 | disposition home or self-care (01) ==
LOC: ANHSURGERY 09:17
PROVIDERS: PCP Family Medicine; Visit Provider Obstetrics & Gynecology
DX: Z01.812 Encounter for preprocedural laboratory examination (principal); R10.2 Pelvic and perineal pain
CPT/HCPCS: 36415; 85025; 86850; 86900; 86901; C9803; U0003; U0005

== ENCOUNTER 2021-06-01 01:28 | Day surgery (SDC) | payer OTHER, SELFPAY ==
[2021-05-23 12:57] VITALS: BMI 22.6
--- NOTE | 2021-05-23 13:09 | PC.NURSE ---
Report to the Outpatient Waiting Room, entrance under the green pavilion located off [facility], at time 7:30 on date 06/01/21. OR Time: 9:30. - You and your visitor will be asked a series of questions to screen for COVID 19 for your protection. - A mask is required within the hospital. - Only one visitor is allowed at this time. Patient visitors will be guided where to wait when not with patient. Preoperative COVID Testing Requirements: No COVID Test needed if: (proof is required; if not received patient will have Rapid Test prior to entry) - Patient has received COVID Vaccine at least 14 days prior to procedure date or - Patient has positive COVID test result within last 90 days of surgery date. COVID Test needed if above criteria is not met If not COVID vaccinated a COVID test must be conducted within 72 hours of surgery and patient is asked to isolate self from time of testing until procedure. You will go to the [facility] for your COVID testing. The [facility] is located at the corner of [address] [facility]. COVID TEST 05/29 AT 9:15 You will only be called if COVID results are positive and your surgeon may reschedule your elective surgery date. Patients may have clear liquids (water, carbonated beverages, clear teas, apple juice) until 3 hours prior to surgery with a maximum of 20 ounces. - No food from midnight until time of surgery - Infants may have breast milk until 4 hours before surgery, infant formula 6 hours prior to surgery. - Children will be allowed to drink immediately following surgery. If applicable, please bring a bottle or sippy cup to assist with drinking. Juice, water, soda, and popsicles are readily available. For infants on formula, please bring formula the day of surgery. Pacifiers are allowed. Take the following medications with a SIP of water the morning of surgery: BUSPIRONE, INCASSIA Medications to discontinue per physician: N/A Date to take last dose: N/A Please no make-up, nail yakut, hairspray, perfume, deodorant, or body powder the day of surgery. No jewelry (including any body piercings) or valuables the day of surgery, leave them at home. Please take a shower or bath the night before, or the morning of, surgery with an antibacterial soap. Wear comfortable, loose fitting clothing. Children are encouraged to wear pajamas. - Jewelry must be removed prior to entering the operating room. Rings and piercings that are not removed may be cut off. - The hospital will not accept responsibility for valuables. - Please leave all valuables, including medications, at home the day of surgery. If you are going home after surgery, a licensed driver's license examiner must drive you home. - NO public transportation without another adult. - We recommend that an adult stay with you for 24 hours following discharge. - We also recommend that you do not drive, make important decision, drink alcoholic beverages, or take any drugs that were not prescribed by your health care provider for at least 24 hours after your discharge time. For Pediatric surgeries, we recommend two adults accompany the child home (only one inside the building at this time). Follow any additional instructions given to you from your surgeon. Telephone instructions given to WASHINGTON RUIZ and asked if any additional questions and then verbalized understanding. Patient advised to call surgeon office or pre surgery nurse liaison [phone] if any additional questions.
--- NOTE | 2021-05-29 12:51 | PM.IMHP ---
H&P: HPI History of Present Illness Date/Time: 05/29/21 12:51 This is a 26 multiparous patient a history of severe and chronic pelvic pain/dyspareunia/prolapse. She opts for hysterectomy and bilateral salpingectomy. She understands this will make her permanently infertile. Risks and benefits reviewed including but exclusive of , aspiration pneumonia, bleeding, transfusion, perforation injury to bowel, bladder, ureters, or other internal organs with need for open laparotomy. She received the ACOG handout entitled hysterectomy as well as advanced the handout. She had all questions answered and asked to proceed Chief Complaint: Pelvic pain/uterine prolapse/dysmenorrhea and dyspareunia Review of Systems Review of Systems: All systems reviewed & are unremarkable except as noted in HPI and below [facility] Social History Social History Years smoked: 8 Smoking status: Former smoker Smoking end date: 06/23/17 Alcohol intake: never Substance use: never Substance use type: does not use Spiritual care concerns: No Meds Home Medications and Allergies Home Medications Medication Instructions Recorded Confirmed Type buspirone 5 mg PO DAILY 05/23/21 05/23/21 History norethindrone (contraceptive) 0.35 mg PO DAILY 05/23/21 05/23/21 History [Incassia] Allergies Allergy/AdvReac Type Severity Reaction Status Date / Time latex Allergy Hives Verified 05/23/21 12:55 sertraline Allergy Other Verified 05/23/21 12:55 Exam Const: General: no acute distress Eyes: General: appearance normal, both eyes and all related structures Neck: Neck: supple and no JVD Thyroid: thyroid normal Resp: Effort & Inspection: normal respiratory effort Auscultation: clear to auscultation bilaterally Cardio: Rate: regular rate Rhythm: regular rhythm GI: Inspection: non-distended GI Palp: Yes Soft to palpation, No Tenderness to palpation present (GI) and No Guarding due to palpation present (GI) Auscultation: normal bowel sounds : External Female Exam: normal external appearance Speculum Exam - Vagina: normal appearance of the vagina Speculum Exam - Cervix: normal appearance of the cervix Bimanual exam- vagina & uterus: boggy and enlarged (Second-degree prolapse is noted) Bimanual Exam- Adnexa, other: normal adnexae Skin: General skin exam: no rashes or lesions noted Extrem: General: normal to inspection and no edema Psych: Mental Status: mental status grossly normal Affect: normal affect Assessment and Plan Additional Plan Impression: Pelvic pain/dyspareunia/prolapse/dysmenorrhea all refractory to medical therapy Plan: Robotic total vaginal hysterectomy and bilateral salpingectomy
[2021-06-01] VITALS (9 sets, daily range): BP systolic 100–123; BP diastolic 50–73; PULSE 62–98; RESP 12–16; TEMP 36.2–36.8; O2SAT 94–100
--- NOTE | 2021-06-01 07:10 | WPDHPUPDATE1 ---
History and Physical Update Update Date/Time: 06/01/21 07:10 History and Physical has been reviewed, including an updated exam of the patient. There are NO changes in the patient's condition. Risks, benefits, and alternatives have been discussed and questions answered. Patient agrees to proceed with procedure.
--- NOTE | 2021-06-01 08:08 | WPDANESEPPF ---
Anes - Initial Pre Proc Eval Procedure: Operation Date: 06/01/21 09:30 Proposed Procedures p Robotic Assisted Total Vaginal Hysterectomy with Bilateral Salpingectomy - Fan Mathews MD Date/Time: 06/01/21 08:08 Surgeon: Fan Mathews MD Pre Op Diagnosis: pelvic pain,dyspareunia, 2nd degree prolpase Patient Data Age: 26 Gender: F Height: 1.55 m Weight: 54.43 kg Allergies Allergy/AdvReac Type Severity Reaction Status Date / Time latex Allergy Hives Verified 06/01/21 07:51 sertraline Allergy Other Verified 06/01/21 07:51 Home Medications Medication Instructions Recorded Confirmed Type buspirone 5 mg PO DAILY 05/23/21 06/01/21 History norethindrone (contraceptive) 0.35 mg PO DAILY 05/23/21 06/01/21 History [Incassia] hydrocodone-acetaminophen 1 tablet PO Q4H PRN #30 tablet 06/01/21 Rx Patient hx anesthesia problems: none Family hx anesthesia problems: none Results Review: All pre-operative results and documents have been reviewed as part of the pre-operative evaluation. [facility] Past Medical History Medical History (Updated 06/01/21 @ 08:11 by Dhaval Schneider MD) Anxiety Chronic pelvic pain in female Depression Dyspareunia Uterine prolapse Social History Social History Years smoked: 8 Smoking status: Former smoker Smoking end date: 06/23/17 Alcohol intake: never Substance use: never Substance use type: does not use Living arrangements: with family Spiritual care concerns: No Anes - Eval Final PreProcedure Day of Procedure 06/01/21 08:08 Patient weight: normal Heart: regular rate and rhythm Lungs: clear to auscultation and normal air movement Airway: Mallampati scale class II Neurological: alert and oriented Last oral intake: >/= 8 hours ASA classification: II Emergent: no Anesthetic plan: proceed Anesthesia type and monitoring: general ETT Results Review: All pre-operative results and documents have been reviewed as part of the pre-operative evaluation. Informed Consent: The patient's anesthetic plan and its attendant risks and benefits were discussed with the patient/family/POA. Questions were solicited and answers provided to the satisfaction of the patient/family/POA.
[2021-06-01] MEDS: ACETAMINOPHEN 500 MG TABLET 1000 MG PO (08:10)
[2021-06-01] MEDS: LACTATED RINGERS 1,000 ML 30 ML IV CONT ×2 (08:20→12:21)
[2021-06-01] MEDS: KETOROLAC 15 MG/ML VIAL (*BKC) IV PUSH (08:20)
[2021-06-01] MEDS: SCOPOLAMINE 1.5 MG PATCH TRANSDERM (10:24)
[2021-06-01] MEDS: ceFAZolin 2 GM/D5W 50 ML 2 GM/50 ML BAG IVPB (10:46)
--- NOTE | 2021-06-01 11:46 | P.OP_ITS ---
Procedure Note - Detailed Date of Procedure 06/01/21 Pre-op Diagnosis pelvic pain,dyspareunia, 2nd degree prolpase Post-op Diagnosis same Procedure Performed Robotic total vaginal hysterectomy and right salpingectomy Surgeon Fan Mathews MD Anesthesia general Indications [age]-year-old female with uterine prolapse and pelvic pain status post left salpingo-oophorectomy Findings absent left uterus and tube. Uterine prolapse. Normal-appearing right ovary and tube Description of Procedure the patient was prepped draped in the normal sterile fashion placed in the dorsal lithotomy position. Under excellent general endotracheal anesthesia weighted speculum placed in posterior fornix vagina. Anterior lip of the cervix grasped with single-tooth tenaculum and the uterus sounded to 8cm. Serial dilatation with fragmented dilators performed followed passes the 6. BETHANIE and the 3. Cold cup. Next the 16 Spanish catheter was placed in the bladder and drained of clear urine. The remainder the instruments removed. Gloves were changed A supraumbilical incision made the Veress needle passed in the abdomen. Abdomen filled with CO2 gas [id number]. The 8mm trocar advanced in the abdomen downside visualized no injury seen PA patient placed in Trendelenburg and a suprapubic incision made and a right left quadrant incisions. 8Mm trocars advanced under direct visualization assuring no injury. A right upper quadrant incision made the 8mm trocar advanced under direct visualization assuring no injury. The robot was docked next. Attention was turned to the console. The left round ligament was grasped, burned, cut. Anterior bladder flap was formed by sharply dissecting the peritoneum and gently reflecting the bladder caudally away cervix and uterus to the opposite round ligament which was clamped, burned, cut. The right fallopian tube was then sharply dissected away from its attachment to the ovary and left attached to the uterus and its origin. The right utero-ovarian ligament was clamped, burned, cut conserving the right ovary. This was brought to the level of previously cut round ligament. The cardinal broad ligaments on the left were then serially skeletonized sliding along the lateral edge of the uterus and cervix clamping cutting and burning. Uterine vessels on the left were seen and they were individually clamped, burned, cut. Next the cardinal broad ligaments on the right were serially skeletonized using sharp dissection. These were then clamped, burned, cut and brought down to the level of the previous of the uterine vessels. Uterine vessels were individually clamped, burned, cut. Blanching the uterus was noted in a colpotomy incision made. Cervix uterus and right fallopian tube removed through the vagina. Blood loss was estimated at [id number] at that point. The vagina was closed with continuous running 0V lock from lateral edge to lateral edge back to the midline. Irrigation undertaken and hemostasis was assured. The vagina was closed with continuous running 0V lock from lateral edge to lateral edge back to the midline. Irrigation undertaken and hemostasis assured. The robot was undocked after gas removed from the abdomen. The incisions closed with 4 O Monocryl and glue. The patient awakened and went to recovery in satisfactory condition. All sponge, needle, instrument counts were correct. There were no immediate complications noted Estimated Blood Loss 10 Drains No Packing No Pathology yes Complications No immediate complications Condition stable Disposition PACU
[2021-06-01] MEDS: fentaNYL CITRATE INJ (*CRX) 100 MCG/2 ML VIAL 25 MCG IV PUSH ×4 (12:00→12:21)
[2021-06-01] MEDS: diphenhydrAMINE HCl INJ 50 MG/ML VIAL 25 MG IV PUSH (12:40)
--- NOTE | 2021-06-01 12:50 | SUR.PHASEI ---
1250 sbar faxed floor notified
--- NOTE | 2021-06-01 13:10 | PC.NURSE ---
This patient, Christina Scott, was received from PACU per bed to room 287. Patient/family oriented to unit policies and routines
[2021-06-01] MEDS: DEXTROSE 5%/LACTATED RINGERS 1,000 ML 125 ML IV CONT (13:27)
[2021-06-01] MEDS: HYDROcodone/acetaminophen (*CRX) 5-325 MG TABLET 1 TAB PO ×2 (17:02→22:07)
[2021-06-01] MEDS: IBUPROFEN 600 MG TABLET PO (17:02)
[2021-06-01] MEDS: DOCUSATE SODIUM 100 MG CAPSULE PO (17:02)
[2021-06-02] VITALS: BP 98/50; PULSE 60; RESP 16; TEMP 36.1; O2SAT 98
[2021-06-02 04:15] VITALS: BP 90/53; PULSE 58; RESP 16; TEMP 36.1; O2SAT 98
[2021-06-02] MEDS: IBUPROFEN 600 MG TABLET PO (04:16)
[2021-06-02] MEDS: HYDROcodone/acetaminophen (*CRX) 5-325 MG TABLET 1 TAB PO ×2 (04:17→08:27)
[2021-06-02 08:20] VITALS: BP 97/54; PULSE 56; RESP 16; TEMP 36.2
--- NOTE | 2021-06-02 08:20 | PM.DS ---
DS: Admitting Diagnosis Discharge Date 06/02/21 Admitting Diagnosis pelvic pain dyspareunia pelvic organ prolapse DS: Summary Hospital Course Hospital Course: Christina Scott was admitted after robotic assisted total laparoscopic hysterectomy and bilateral salpingectomy for pelvic pain, dyspareunia, pelvic organ prolapse. The above procedure was performed with no complications. She is doing well post op. She states her pain is well controlled with PO medications. She reports minimal bleeding. She is ambulating up to the chair. Her holman catheter was removed. She is tolerating PO without N/V. She reports passing flatus. Status at Discharge Overall status at discharge: patient is progressing back to baseline Time Spent with Patient Time attestation: Total time spent providing and/or coordinating discharge services: Time spent: Less than 30 minutes Exam Const: General: comfortable and no acute distress Limitations: no limitations Resp: Effort & Inspection: normal respiratory effort Auscultation: clear to auscultation bilaterally Cardio: Rate: regular rate Rhythm: regular rhythm GI: Inspection: non-distended GI Palp: Yes Soft to palpation, Yes Tenderness to palpation present (GI) (milder tenderness to deep palpation) and No Guarding due to palpation present (GI) Auscultation: normal bowel sounds Other: incisions C/D/I covered with dermabond Urinary Catheter: Urinary Catheter: urine clear Skin: General skin exam: normal color Extrem: General: normal to inspection Psych: Mental Status: mental status grossly normal Affect: normal affect DS: Data Data Completed and Pending Pending studies at discharge: Pending at discharge 06/01/21 11:29 Surgical [PTH] Routine Labs on day of discharge: Labs from last 24 hours 06/02/21 04:43 WBC Cancelled RBC Cancelled Hgb Cancelled Hct Cancelled MCV Cancelled MCH Cancelled MCHC Cancelled RDW Cancelled Plt Count Cancelled MPV Cancelled Immature Gran % (Auto) Cancelled Neut % (Auto) Cancelled Lymph % (Auto) Cancelled [place] % (Auto) Cancelled Eos % (Auto) Cancelled Baso % (Auto) Cancelled Lymph # (Auto) Cancelled [place] # (Auto) Cancelled Eos # (Auto) Cancelled Baso # (Auto) Cancelled Abs Immat Gran (auto) Cancelled Absolute Neuts (auto) Cancelled Absolute Nucleated RBC Cancelled Nucleated RBC % Cancelled % Immature Plt Fraction Cancelled Discharge Plan Discharge Patient Disposition: Home, Self-Care Discharge Instructions: Remove the Scopolamine patch that was placed behind your left ear in 72 hours or less. Wash your hands after touching. Patient Instructions: Laparoscopic Hysterectomy (DC) Stand Alone Forms: General Discharge Instructions Follow-up/Referrals: Fan Mathews MD [Physician] - Discharge Medications: New hydrocodone-acetaminophen 5-325 mg tablet 1 tablet PO Q4H PRN (Reason: pain) Qty: 30 RF: 0 No Action buspirone 5 mg Tablet 5 mg PO DAILY RF: 0 norethindrone (contraceptive) [Incassia] 0.35 mg Tablet 0.35 mg PO DAILY RF: 0
[2021-06-02] MEDS: ENOXAPARIN 40 MG/0.4 ML SYRINGE SUB-Q (08:27)
[2021-06-02] MEDS: DOCUSATE SODIUM 100 MG CAPSULE PO (08:27)
== END 2021-06-02 11:38 | disposition home or self-care (01) ==
LOC: ANHSURGERY 07:28 → ANHOB2 13:09
PROVIDERS: PCP Family Medicine; Visit Provider Obstetrics & Gynecology
PROC: (CPT 58552; principal; 2021-06-01 09:30)
DX: R10.2 Pelvic and perineal pain (principal); G89.29 Other chronic pain; N94.10 Unspecified dyspareunia; N81.2 Incomplete uterovaginal prolapse; F41.8 Other specified anxiety disorders; Z87.891 Personal history of nicotine dependence
CPT/HCPCS: 58552; S2900; 36415; 88307; 99199; A9270; J0690; J1100; J1200; J1650; J1885; J2250; J2270; J2405; J2704; J2710; J3010; J7030; J7120; J7121

== ENCOUNTER 2022-02-02 08:55 | Emergency (ER) | payer OTHER, SELFPAY ==
--- NOTE | ~2022-02-02 | US_ITS ---
EXAMINATION: US transvaginal DATE: 02/02/2022 10:33 INDICATION: Right lower quadrant pain, history of left salpingo-oophorectomy, right salpingectomy, an d hysterectomy TECHNIQUE: Multiple endovaginal sonographic images of the pelvis were obtained. COMPARISON: None. FINDINGS: The uterus is surgically absent. The ovaries are not visualized however no adnexal abnormal ity is seen. There is no free fluid in the pelvis. IMPRESSION: 1. No sonographic correlate for the patient's symptoms. Reviewed, dictated and finalized at location A.
[2022-02-02 09:02] VITALS: BP 114/58; PULSE 56; RESP 16; O2SAT 100
[2022-02-02 09:18] VITALS: TEMP 36.9
[2022-02-02 09:26] LABS: Basophils Absolute Auto 0.1 K/mm3 (0.0-0.1); Basophils Percent Auto 0.7 % (0.2-1.2); Eosinophils Absolute Auto 0.4 K/mm3 (0-0.3); Eosinophils Percent Auto 5.2 % (0-4.4); Hematocrit 44.4 % (37.0-47.0); Hemoglobin 14.4 g/dL (12.0-15.0); Immature Granulocyte Absolute 0.03 K/mm3 (0.00-0.031); Immature Granulocyte Percent A 0.4 % (0-0.5); Lymphocytes Absolute Auto 1.88 K/mm3 (0.9-3.2); Lymphocytes Percent Auto 24.8 % (18.3-44.2); Mean Corpuscular HGB Conc 32.4 g/dl (32-36); Mean Corpuscular Hemoglobin 30.1 pg (26-34); Mean Corpuscular Volume 92.9 fl (80-100); Mean Platelet Volume 9.2 fl (7.4-10.4); Monocytes Absolute Auto 0.5 K/mm3 (0.1-0.6); Monocytes Percent Auto 6.2 % (2.6-8.5); Neutrophils Absolute Auto 4.8 K/mm3 (1.3-6.7); Neutrophils Percent Auto 62.7 % (45.5-73.1); Platelet Count Result 296 k/mm3 (150-375); Red Blood Count 4.78 M/mm3 (4.2-5.4); Red Cell Distribution Width 12.9 % (11.5-14.5); White Blood Count 7.6 K/mm3 (4.5-10.0)
[2022-02-02 09:39] LABS: Alanine Aminotransferase 20 U/L (6-35); Albumin Level 4.8 g/dL (3.5-5.1); Alkaline Phosphatase 58 U/L (38-126); Anion Gap 11 mmol/L (8-16); Aspartate Amino Transferase 28 U/L (14-36); Bilirubin,Total 1.9 mg/dL (0.2-1.3); Blood Urea Nitrogen 9 mg/dL (7-17); Calcium 9.1 mg/dL (8.4-10.2); Carbon Dioxide 27 mmol/L (22-30); Chloride 102 mmol/L (98-107); Estimated CRCL calculation 82 ml/min; Estimated Glomerular Filt Rate > 60; Glucose 96 mg/dL (65-110); Lipase 41 U/L (23-300); Potassium 4.1 mmol/L (3.4-5.0); Sodium 140 mmol/L (137-145)
--- NOTE | 2022-02-02 09:44 | ED.ABDPAIN ---
HPI - Abdominal Pain General Chief Complaint: Abdominal Pain Stated Complaint: abd pain, back pain, hip pain, pelvic pain Time Seen by Provider: 02/02/22 08:59 History of Present Illness HPI narrative: This is a 26-year-old female status post hysterectomy and left salpingectomy in May 2021, who presents to the emergency department with right-sided abdominal and flank pain. She states about a week ago she was seen by her OB doctor for dysuria and discharge, was diagnosed with UTI and started on what she believes was Keflex. Despite initial improvement in dysuria she began having right pelvic and right flank pain was advised to return to the emergency department for evaluation. She states she is also scheduled to have an ultrasound of the right ovary for suspected cyst. She denies vomiting, bleeding, dysuria or hematuria. Related Data Home Medications Medication Instructions Recorded Confirmed citalopram 20 mg tablet 20 mg PO DAILY 11/12/21 11/12/21 Allergies Allergy/AdvReac Type Severity Reaction Status Date / Time garlic Allergy Unknown HIVES Verified 11/12/21 10:39 latex Allergy Unknown RASH Verified 11/12/21 10:39 sertraline Allergy Unknown suicidal Verified 11/12/21 10:39 thoughts Review of Systems Review of Systems: CONSTITUTIONAL: Denies fever, chills, or sweats. EYES: Denies visual changes, redness, or discharge. ENT: Denies rhinorrhea, congestion, sore throat, or otalgia. CARDIOVASCULAR: Denies chest pain, palpitations, or edema. RESPIRATORY: Denies cough or dyspnea. GASTROINTESTINAL: +abdominal pain, right flank pain Denies, nausea, vomiting, or diarrhea. GENITOURINARY: Denies dysuria or hematuria. SKIN: Denies rash or itching. MUSCULOSKELETAL: Denies back pain, joint pain, or myalgia. NEUROLOGIC: Denies headache, numbness, dizziness, or weakness. PSYCHIATRIC: Denies anxiety or depression. [facility] Past Medical History Medical History (Updated 02/02/22 @ 11:44 by Audi Auguste MD) Anxiety Astigmatism, bilateral Chronic pelvic pain in female Depression Depression with anxiety Dyspareunia Endometriosis IBS (irritable bowel syndrome) Migraine Uterine prolapse UTI (urinary tract infection) Surgical History Surgical History (System 09/04/21 @ 15:10 by Chanel Dolan) History of dilation and curettage History of exploratory laparotomy History of left salpingo-oophorectomy History of total vaginal hysterectomy (TVH) (~05/2021) with right salpingectomy Family History Family History (System 09/04/21 @ 15:10 by Chanel Dolan) Grandparent Diabetes mellitus Family history of malignant neoplasm of brain Mother Diabetes mellitus Family history of elevated blood lipids Family history of anemia Father Hypertension Other Family history of malignant neoplasm of kidney Family history of pancreatic cancer Social History Social History (System 09/04/21 @ 15:10 by Chanel Dolan) Years smoked: 8 Smoking status: Former smoker Tobacco type: cigarettes Additional smoking assessment comments: QUIT 1 YEAR AGO Alcohol intake: never Substance use: never Substance use type: does not use Gender identity (if verbalized by the patient): Female Spiritual care concerns: No Exam Narrative: GENERAL: Well-appearing, well-nourished, appears uncomfortable HEAD: Normocephalic, atraumatic. EYES: PERRLA and EOMI. ENT: Nares clear, no rhinorrhea or epistaxis. Mucous membranes moist. Oropharynx without tonsillar hypertrophy exudate or other lesions. NECK: Supple. No adenopathy or masses. No carotid bruits or JVD CHEST: Clear to auscultation. No respiratory distress. No wheezes rales or rhonchi HEART: Regular rate and rhythm. No murmur heard. Normal peripheral pulses. ABDOMEN: Soft, tender to palpation in the right lower quadrant, nondistended, normal active bowel sounds. Right flank pain with tenderness EXTREMITIES: Normal range of motion. No edema. SKIN: Warm, dry, no r
[2022-02-02 10:14] LABS: Appearance Urine Clear (Clear); Bilirubin Urine Negative (Negative); Blood Urine 1+ (Negative); Color Urine Yellow (Yellow); Glucose Urine UA Negative (Negative); Ketones Urine Negative (Negative); Leukocyte Esterase Ur Negative LEU/UL (Negative); Nitrate Urine Negative (Negative); Protein Urine Negative (Negative); Specific Grav Ur 1.015 (1.001-1.035)
[2022-02-02 10:20] LABS: Mucus Urine Rare /lpf; Squamous Epithelial Cell Urine Rare /hpf (Few); WBC Urine 0-3 /hpf
[2022-02-02 10:23] LABS: Add Urine Microscopic? YES
[2022-02-02 11:05] VITALS: BP 107/55; PULSE 59; RESP 18; O2SAT 100
[2022-02-02 12:04] VITALS: BP 99/61; PULSE 59; RESP 18; O2SAT 100
== END 2022-02-02 12:06 | disposition home or self-care (01) ==
PROVIDERS: Emergency Provider Preventive Medicine Aerospace Medicine; PCP Family Medicine
DX: N12 Tubulo-interstitial nephritis, not specified as acute or chronic (principal); R10.31 Right lower quadrant pain; Z90.710 Acquired absence of both cervix and uterus; Z90.79 Acquired absence of other genital organ(s); Z90.721 Acquired absence of ovaries, unilateral; Z87.891 Personal history of nicotine dependence
CPT/HCPCS: 36415; 76830; 80053; 81001; 81025; 83690; 85025; 96374; 99284; J0131

== ENCOUNTER 2022-02-15 15:39 | Emergency (ER) | payer OTHER, SELFPAY ==
--- NOTE | ~2022-02-15 | US_ITS ---
EXAMINATION: US pelvic complete w TV DATE: 02/15/2022 19:44 INDICATION: Right lower quadrant abdominal pain. TECHNIQUE: Multiple transabdominal and endovaginal sonographic images of the pelvis were obtained. COMPARISON: None. FINDINGS: The uterus the left ovary are not visualized and reportedly surgically absent. The right ovary measur es 3.6 x 2.8 x 2.4 cm with internal vascular flow on color Doppler. There are several small anechoic cysts/follicles measuring up to 6 mm in the right ovary. Suggestion of a subtle 2 cm hypoechoic lesio n in the right ovary with appearance suggesting a thick-walled partially collapsed corpus luteum cyst with typical increased peripheral vascular flow. Trace amount of likely physiologic free fluid along side the right ovary. IMPRESSION: 1. A few small subcentimeter anechoic right ovarian follicles and larger more subtle 2 cm hypoechoic lesion with peripheral hyperemia within the right ovary most likely representing a partially collapse d corpus luteum cyst. Consider-12 follow-up ultrasound to document resolution. 2. Uterus and left ovary not visualized and reportedly surgically absent. Reviewed, dictated and finalized at location A. IMPRESSION: 1. A few small subcentimeter anechoic right ovarian follicles and larger more s ubtle 2 cm hypoechoic lesion with peripheral hyperemia within the right ovary m ost likely representing a partially collapsed corpus luteum cyst. Consider-12 f ollow-up ultrasound to document resolution. 2. Uterus and left ovary not visualized and reportedly surgically absent.
--- NOTE | ~2022-02-15 | CT_ITS ---
EXAMINATION: CT abdomen pelvis w con DATE: 02/15/2022 20:46 INDICATION: Right lower quadrant abdominal pain. TECHNIQUE: Computed tomography (CT) of the abdomen and pelvis was performed with 100 mL Omnipaque-350 intravenous contrast. Automated exposure control and iterative reconstruction technique were employe d. The dose-length product was 193.85 mGy-cm. COMPARISON: None FINDINGS: Lower lungs are clear. Heart size is normal. No pericardial or pleural effusion. Liver, gallbladder, spleen, pancreas, bilateral adrenal glands and kidneys are normal. The appendix is not visualized. No pericecal inflammatory change to suggest acute appendicitis. Bowels are unremarkable with no wall th ickening or obstruction. Bladder is normal. Uterus and left ovary are not visualized and reportedly s urgically absent. 1.8 cm peripherally enhancing corpus luteum cyst in the right ovary. No free intrap eritoneal gas or fluid. No pathologically enlarged abdominal or pelvic lymphadenopathy. Mild lumbar l evocurvature. IMPRESSION: 1. 1.8 cm corpus luteum cyst in the right ovary. No other acute intra-abdominal/pelvic process. Reviewed, dictated and finalized at location A. IMPRESSION: 1. 1.8 cm corpus luteum cyst in the right ovary. No other acute intra-abdominal /pelvic process.
[2022-02-15 15:57] VITALS: BP 114/61; PULSE 68; RESP 20; TEMP 37; O2SAT 99
[2022-02-15 17:21] LABS: Basophils Absolute Auto 0.1 K/mm3 (0.0-0.1); Basophils Percent Auto 0.6 % (0.2-1.2); Eosinophils Absolute Auto 0.5 K/mm3 (0-0.3); Eosinophils Percent Auto 6.6 % (0-4.4); Hematocrit 41.8 % (37.0-47.0); Hemoglobin 14.1 g/dL (12.0-15.0); Immature Granulocyte Absolute 0.02 K/mm3 (0.00-0.031); Immature Granulocyte Percent A 0.2 % (0-0.5); Lymphocytes Absolute Auto 2.33 K/mm3 (0.9-3.2); Lymphocytes Percent Auto 28.8 % (18.3-44.2); Mean Corpuscular HGB Conc 33.7 g/dl (32-36); Mean Corpuscular Hemoglobin 30.7 pg (26-34); Mean Corpuscular Volume 91.1 fl (80-100); Mean Platelet Volume 8.8 fl (7.4-10.4); Monocytes Absolute Auto 0.5 K/mm3 (0.1-0.6); Monocytes Percent Auto 6.3 % (2.6-8.5); Neutrophils Absolute Auto 4.6 K/mm3 (1.3-6.7); Neutrophils Percent Auto 57.5 % (45.5-73.1); Platelet Count Result 301 k/mm3 (150-375); Red Blood Count 4.59 M/mm3 (4.2-5.4); White Blood Count 8.1 K/mm3 (4.5-10.0)
[2022-02-15 17:25] LABS: Appearance Urine Clear (Clear); Bilirubin Urine Negative (Negative); Glucose Urine UA Negative (Negative); Ketones Urine Negative (Negative); Leukocyte Esterase Ur Negative LEU/UL (Negative); Nitrate Urine Negative (Negative); Protein Urine Negative (Negative); Urobilinogen Urine 0.2 mg/dL (<2.0)
[2022-02-15 17:26] LABS: Add Urine Microscopic? YES; Blood Urine Trace-Intact (Negative); Color Urine Colorless (Yellow)
[2022-02-15 17:29] LABS: Alanine Aminotransferase 26 U/L (6-35); Albumin Level 4.7 g/dL (3.5-5.1); Alkaline Phosphatase 54 U/L (38-126); Anion Gap 11 mmol/L (8-16); Aspartate Amino Transferase 26 U/L (14-36); Bilirubin,Total 1.2 mg/dL (0.2-1.3); Blood Urea Nitrogen 9 mg/dL (7-17); Calcium 9.4 mg/dL (8.4-10.2); Carbon Dioxide 23 mmol/L (22-30); Chloride 102 mmol/L (98-107); Estimated CRCL calculation 89 ml/min; Estimated Glomerular Filt Rate > 60; Glucose 88 mg/dL (65-110); Lipase 72 U/L (23-300); Potassium 4.2 mmol/L (3.4-5.0); Sodium 136 mmol/L (137-145)
[2022-02-15 17:30] LABS: Mucus Urine Rare /lpf; RBC Urine 0-2 /hpf (0-2); WBC Urine 0-3 /hpf
--- NOTE | 2022-02-15 17:39 | ED.ABDPAIN ---
HPI - Abdominal Pain General Chief Complaint: Abdominal Pain <GOGO Bryant Last Filed: 02/16/22 04:21> Stated Complaint: abd pain <GOGO Bryant Last Filed: 02/16/22 04:21> Time Seen by Provider: 02/15/22 16:54 <GOGO Bryant Last Filed: 02/16/22 04:21> Source: patient <GOGO Bryant Last Filed: 02/16/22 04:21> Mode of arrival: ambulatory <GOGO Bryant Last Filed: 02/16/22 04:21> Limitations: no limitations <GOGO Bryant Last Filed: 02/16/22 04:21> History of Present Illness HPI narrative: Patient is a 26-year-old female who presents the ED with report of right lower abdominal pain. Patient reports she has had intermittent lower abdominal pain for the last 3 weeks. She was diagnosed with a urinary tract infection around 3 weeks ago, which she reports progressed to a kidney infection around 2 weeks ago. She was initially placed on ciprofloxacin which was switched to Bactrim on the . She reports she was also recently diagnosed with a right ovarian cyst. She is seeing her [employer] SCIENCE TECHNICIAN about this, Dr. Melida Sweet and has a repeat US scheduled in 5 weeks. Today at work, around 2 PM she reports she experienced severe pain in her right lower quadrant. She left work at that time and presented here. Last took Tylenol around noon today. Patient reports occasional nausea but none currently. No vomiting. No diarrhea, constipation, fever. Urinary symptoms are improved. Patient has history of left salpingo-oophorectomy and hysterectomy. <GOGO Bryant Last Filed: 02/16/22 04:21> Related Data Home Medications: Home Medications Medication Instructions Recorded Confirmed citalopram 20 mg tablet 20 mg PO DAILY 11/12/21 11/12/21 <GOGO Bryant Last Filed: 02/16/22 04:21> Allergies/Adverse Reactions: Allergies Allergy/AdvReac Type Severity Reaction Status Date / Time garlic Allergy Unknown HIVES Verified 11/12/21 10:39 latex Allergy Unknown RASH Verified 11/12/21 10:39 sertraline Allergy Unknown suicidal Verified 11/12/21 10:39 thoughts <Linda Lawson PA-C - Last Filed: 02/16/22 04:21> Review of Systems Review of Systems: CONSTITUTIONAL: Denies fever, chills, or sweats. CARDIOVASCULAR: Denies chest pain. RESPIRATORY: Denies dyspnea. GASTROINTESTINAL: Reports RLQ abdomen pain, occasional nausea. Denies constipation, vomiting, or diarrhea. GENITOURINARY: Denies dysuria or hematuria. <Linda Lawson PA-C - Last Filed: 02/16/22 04:21> All systems reviewed & are unremarkable except as noted in HPI and below <Linda Lawson PA-C - Last Filed: 02/16/22 04:21> [facility] Past Medical History Medical History: Medical History Anxiety Astigmatism, bilateral Chronic pelvic pain in female Depression Depression with anxiety Dyspareunia Endometriosis IBS (irritable bowel syndrome) Migraine Uterine prolapse UTI (urinary tract infection) <Linda Lawson PA-C - Last Filed: 02/16/22 04:21> Surgical History Surgical History: Surgical History History of dilation and curettage History of exploratory laparotomy History of left salpingo-oophorectomy History of total vaginal hysterectomy (TVH) (~05/2021) with right salpingectomy <Linda Lawson PA-C - Last Filed: 02/16/22 04:21> Family History Family History: Family History (System 09/04/21 @ 15:10 by Chanel Dolan) Grandparent Diabetes mellitus Family history of malignant neoplasm of brain Mother Diabetes mellitus Family history of elevated blood lipids Family history of anemia Father Hypertension Other Family history of malignant neoplasm of kidney Family history of pancreatic cancer <Linda Lawson PA-C - Last Fi
[2022-02-15] MEDS: SODIUM CHLORIDE 0.9% IV 1,000 ML 999 ML IV CONT (18:14)
--- NOTE | 2022-02-15 22:13 | PC.NURSE ---
Pt d/c by providers before medicaiotn administration. Pt okay with d/c without medications.
== END 2022-02-15 22:15 | disposition home or self-care (01) ==
PROVIDERS: Physician Assistant; Emergency Provider Emergency Medicine; PCP Family Medicine
DX: N83.11 Corpus luteum cyst of right ovary (principal); F41.8 Other specified anxiety disorders; K58.9 Irritable bowel syndrome, unspecified; Z87.440 Personal history of urinary (tract) infections; Z90.79 Acquired absence of other genital organ(s); Z90.721 Acquired absence of ovaries, unilateral; Z90.710 Acquired absence of both cervix and uterus; Z87.891 Personal history of nicotine dependence
CPT/HCPCS: 36415; 74177; 76830; 76856; 80053; 81001; 81025; 83690; 85025; 96361; 96374; 99284; J0131; J7030; Q9967

== ENCOUNTER 2022-10-22 08:01 | Emergency (ER) | payer OTHER, SELFPAY ==
--- NOTE | 2022-10-22 08:27 | ED.EAR ---
HPI - Ear Problem General Chief complaint: Ear Stated complaint: . Time Seen by Provider: 10/22/22 08:40 Source: patient and RN notes reviewed Mode of arrival: ambulatory Limitations: no limitations History of Present Illness HPI Narrative: 27-year-old female presents with concern for ear pain, nasal congestion, rhinorrhea. She reports she had a fever a couple of days ago. She reports she has taken Tylenol. Complaint: ear pain Related Data Home Medications Medication Instructions Recorded Confirmed citalopram 20 mg tablet 20 mg PO DAILY 11/12/21 10/22/22 Allergies Allergy/AdvReac Type Severity Reaction Status Date / Time garlic Allergy Unknown HIVES Verified 10/22/22 08:33 latex Allergy Unknown RASH Verified 10/22/22 08:33 sertraline Allergy Unknown suicidal Verified 10/22/22 08:33 thoughts Review of Systems Review of Systems: CONSTITUTIONAL: Denies malaise, chills, sweats. Reports fever. EYES: Denies visual changes, redness, or discharge. ENT: Reports rhinorrhea, congestion. Denies sinus pain, and sore throat. Reports bilateral ear pain CARDIOVASCULAR: Denies chest pain, palpitations, or edema. RESPIRATORY: Denies cough. Denies dyspnea. GASTROINTESTINAL: Denies abdominal pain, nausea, vomiting, diarrhea SKIN: Denies rash or itching. MUSCULOSKELETAL: Denies myalgia. NEUROLOGIC: Denies headache. All systems reviewed & are unremarkable except as noted in HPI and below PMFSH Past Medical History Medical History (Updated 10/22/22 @ 08:58 by Venecia Rivera NP) Anxiety Astigmatism, bilateral Chronic pelvic pain in female Depression Depression with anxiety Dyspareunia Endometriosis IBS (irritable bowel syndrome) Migraine Panic disorder without agoraphobia Pelvic varices Uterine prolapse UTI (urinary tract infection) Surgical History Surgical History History of dilation and curettage History of exploratory laparotomy History of left salpingo-oophorectomy History of total vaginal hysterectomy (TVH) (~05/2021) with right salpingectomy Family History Family History Grandparent Diabetes mellitus Family history of malignant neoplasm of brain Mother Diabetes mellitus Family history of elevated blood lipids Family history of anemia Father Hypertension Other Family history of malignant neoplasm of kidney Family history of pancreatic cancer Social History Social History Years smoked: 8 Smoking status: Former smoker Tobacco type: cigarettes Additional smoking assessment comments: QUIT 1 YEAR AGO Alcohol intake: never Substance use: never Substance use type: does not use Lack of Transportation: No Lack of Food: Never True Current Housing: I Have Housing Concerned About Future Housing: No Difficulty Paying Gas/Electric Bills: No Difficulty Paying for Meds: No Currently Unemployed: No Education: High School Diploma/GED Difficulty w/ Childcare or Family Care: No Living arrangements: with family Gender identity (if verbalized by the patient): Female Spiritual care concerns: No Comments At time of signature, agree with nursing past medical, surgical, social and family history. There is no relevant family history pertinent to the presenting complaint Exam Narrative: GENERAL: Well-appearing, well-nourished, and in no acute distress. HEAD: Normocephalic EYES: PERRLA, conjunctivae clear ENT: Nares clear, turbinates edematous, clear discharge. Mucous membranes moist. TM pearly eli with dull light reflex bilaterally; no tragal tenderness. Oropharynx not erythematous without lesions. Tonsils not enlarged and without exudate, no drooling, no hoarseness, no trismus, uvula midline. NECK: Supple. No lymphadenopathy CHEST: Clear to auscultation, breath sounds equal. No wheezing, rhonchi
[2022-10-22 08:29] VITALS: BP 110/62; PULSE 67; RESP 16; TEMP 37; O2SAT 100
== END 2022-10-22 09:04 | disposition home or self-care (01) ==
PROVIDERS: Emergency Provider Nurse Practitioner; PCP Family Medicine
DX: J06.9 Acute upper respiratory infection, unspecified (principal); Z87.891 Personal history of nicotine dependence; N80.9 Endometriosis, unspecified; F41.9 Anxiety disorder, unspecified; F32.A Depression, unspecified
CPT/HCPCS: 87081; 87880; 99213; G0463

== ENCOUNTER 2022-12-06 14:46 | Outpatient (CLI) | payer OTHER, SELFPAY ==
--- NOTE | ~2022-12-06 | CT_ITS ---
EXAMINATION: CT abdomen pelvis wo con DATE: 12/06/2022 14:59 INDICATION: Unspecified abdominal pain TECHNIQUE: Computed tomography (CT) of the abdomen and pelvis was performed without intravenous contr ast. The dose-length product was 185.79 mGy-cm. Automated exposure control and iterative reconstructi on technique were employed. COMPARISON: CT dated 02/15/2022. FINDINGS: Lung bases are unremarkable. Heart size normal. No significant pleural or pericardial effus ion. The liver, spleen, pancreas, adrenal glands and kidneys are unremarkable. Nonobstructive bowel p attern. No free air or free fluid. No acute osseous abnormality. No significant vascular abnormality. No lymphadenopathy. No free air or free fluid. No abnormal pelvic masses or fluid collections. The a ppendix is not positively visualized. There is no pericecal inflammatory change to suggest appendici tis. IMPRESSION: 1. No acute abdominal abnormality. Reviewed, dictated and finalized at location A.
== END 2022-12-06 14:47 | disposition home or self-care (01) ==
PROVIDERS: PCP Family Medicine; Visit Provider Nurse Practitioner Family
DX: R10.9 Unspecified abdominal pain (principal)
CPT/HCPCS: 74176

== ENCOUNTER 2023-01-21 00:25 | Day surgery (SDC) | payer OTHER, SELFPAY ==
[2023-01-17 13:45] VITALS: BMI 19.8
[2023-01-21 09:53] VITALS: BP 106/64; PULSE 70; RESP 16; TEMP 36.6; O2SAT 100
[2023-01-21] MEDS: LACTATED RINGERS 1,000 ML 150 ML IV CONT (10:03)
--- NOTE | 2023-01-21 10:32 | WPDHPUPDATE1 ---
History and Physical Update Update Date/Time: 01/21/23 10:32 History and Physical has been reviewed, including an updated exam of the patient. There are NO changes in the patient's condition. Risks, benefits, and alternatives have been discussed and questions answered. Patient agrees to proceed with procedure.
[2023-01-21] MEDS: BENZOCAINE (*SP) 60 ML SPRAY CAN (HURRICAINE) 1 SPRAY MUCOUS MEM (10:40)
--- NOTE | 2023-01-21 10:42 | WPDANESEPPF ---
Anes - Initial Pre Proc Eval Procedure: Operation Date: 01/21/23 11:15 Proposed Procedures p Esophagogastroduodenoscopy & Colonoscopy - Bar Mota MD Date/Time: 01/21/23 10:42 Surgeon: Bar Mota MD Pre Op Diagnosis: right upper quad pain, other chronic pain,pelvic/p Patient Data Age: 27 Gender: F Height: 1.55 m Weight: 45.9 kg Last Vital Signs Temp 98 F 01/21/23 09:53 Pulse 70 01/21/23 09:53 Resp 16 01/21/23 09:53 BP 106/64 01/21/23 09:53 Pulse Ox 100 01/21/23 09:53 O2 Del Method Room Air 01/21/23 09:53 Allergies Allergy/AdvReac Type Severity Reaction Status Date / Time garlic Allergy Unknown HIVES Verified 01/21/23 09:52 latex Allergy Unknown RASH Verified 01/21/23 09:52 sertraline Allergy Unknown suicidal Verified 01/21/23 09:52 thoughts Home Medications Medication Instructions Recorded Confirmed Type No Home Medications 01/17/23 01/17/23 History Patient hx anesthesia problems: none Family hx anesthesia problems: none Results Review: All pre-operative results and documents have been reviewed as part of the pre-operative evaluation. [facility] Past Medical History Medical History (Updated 01/09/23 @ 16:00 by Bar Mota MD) Anxiety Astigmatism, bilateral Chronic pelvic pain in female Depression Depression with anxiety Dyspareunia Endometriosis IBS (irritable bowel syndrome) Migraine Panic disorder without agoraphobia Pelvic varices RUQ pain Uterine prolapse UTI (urinary tract infection) Surgical History Surgical History (Updated 01/09/23 @ 16:05 by Bar Mota MD) History of dilation and curettage History of exploratory laparotomy History of left salpingo-oophorectomy History of total vaginal hysterectomy (TVH) (~05/2021) with right salpingectomy Family History Family History Grandparent Diabetes mellitus Family history of malignant neoplasm of brain Mother Diabetes mellitus Family history of elevated blood lipids Family history of anemia Father Hypertension Other Family history of malignant neoplasm of kidney Family history of pancreatic cancer Social History Social History Years smoked: 8 Smoking status: Former smoker Tobacco type: cigarettes Additional smoking assessment comments: QUIT 1 YEAR AGO Alcohol intake: never Substance use: never Substance use type: does not use Lack of Transportation: No Lack of Food: Never True Current Housing: I Have Housing Concerned About Future Housing: No Difficulty Paying Gas/Electric Bills: No Difficulty Paying for Meds: No Currently Unemployed: No Education: High School Diploma/GED Difficulty w/ Childcare or Family Care: No Living arrangements: with family Gender identity (if verbalized by the patient): Female Spiritual care concerns: No Anes - Eval Final PreProcedure Day of Procedure 01/21/23 10:42 Patient weight: normal Heart: regular rate and rhythm Lungs: clear to auscultation Airway: Mallampati scale class II Neurological: alert and oriented Last oral intake: >/= 8 hours ASA classification: II Emergent: no Anesthetic plan: proceed Anesthesia type and monitoring: general GIVS and standard monitoring Results Review: All pre-operative results and documents have been reviewed as part of the pre-operative evaluation. Informed Consent: The patient's anesthetic plan and its attendant risks and benefits were discussed with the patient/family/POA. Questions were solicited and answers provided to the satisfaction of the patient/family/POA.
[2023-01-21 11:02] VITALS: BP 92/48; PULSE 57; RESP 17; O2SAT 100
--- NOTE | 2023-01-21 11:02 | SUR.OPER ---
EGD START 1042, END 1046 COLONOSCOPY START 104, END 1059
[2023-01-21 11:12] VITALS: BP 110/65; PULSE 63; RESP 17; O2SAT 100
[2023-01-21 11:22] VITALS: BP 115/78; PULSE 60; RESP 22; O2SAT 100
== END 2023-01-21 11:38 | disposition home or self-care (01) ==
PROVIDERS: PCP Family Medicine; Visit Provider Internal Medicine Gastroenterology
PROC: 0DJ08ZZ Inspection of Upper Intestinal Tract, Via Natural or Artificial Opening Endoscopic (ICD-10-PCS; CPT 43235; principal; 2023-01-21 11:15)
DX: R10.30 Lower abdominal pain, unspecified (principal); D12.3 Benign neoplasm of transverse colon; K62.1 Rectal polyp; K64.8 Other hemorrhoids; Z87.891 Personal history of nicotine dependence
CPT/HCPCS: 45385; 43239; 88305; J2704; J7120

== ENCOUNTER 2023-04-29 09:01 | Emergency (ER) | payer OTHER, SELFPAY ==
[2023-04-29] VITALS (7 sets, daily range): BP systolic 102–119; BP diastolic 61–72; PULSE 60–76; RESP 12–20; TEMP 36.2–36.7; O2SAT 99–100
--- NOTE | ~2023-04-29 | XR_ITS ---
EXAMINATION: XR chest 2V DATE: 04/29/2023 09:43 INDICATION: Right-sided chest pain TECHNIQUE: PA and lateral views of the chest were obtained. COMPARISON: Chest radiograph dated 01/08/2021 FINDINGS: The lungs remain clear with no focal airspace opacities, pulmonary edema, pleural effusion or pneumot horax. The cardiomediastinal silhouette is normal. Visualized bones and soft tissues are unremarkable . IMPRESSION: 1. No acute cardiopulmonary disease. Reviewed, dictated and finalized at location A. CLE SAFETY INSPECTOR
--- NOTE | 2023-04-29 09:04 | ECG_ITS ---
Measurements Intervals [place] Rate: 67 P: 59 TN: 136 QRS: 82 QRSD: 86 T: 45 QT: 367 QTc: 388 Interpretive Statements SINUS RHYTHM RSR' IN V1 OR V2, PROBABLY NORMAL VARIANT BORDERLINE ECG COMPARED TO ECG 12/29/2020 10:45:17 NO SIGNIFICANT CHANGES Electronically Signed On 04-29-2023 9:20:48 SIZING MACHINE OPERATOR by Moo Magdaleno D.O.
--- NOTE | 2023-04-29 09:50 | ED.GENADULT ---
HPI - General Adult General Chief complaint: Chest Pain Stated complaint: Difficulty breathing, chest pain, nauseated Time Seen by Provider: 04/29/23 09:05 History of Present Illness HPI narrative: Christina Scott is a 27 y/o female who presents with reports of having productive cough for 2 days of white sputum, nausea, she vomited twice yesterday, able to keep small liquids down this morning, right sided chest pain that started today, sore throat for about a week. denies abdominal pain, denies changes to urine, last BM was yesterday. Hx of endometriosis and s/p hysterectomy. Denies fever/chills. Related Data Allergies Allergy/AdvReac Type Severity Reaction Status Date / Time garlic Allergy Unknown HIVES Verified 01/21/23 09:52 latex Allergy Unknown RASH Verified 01/21/23 09:52 sertraline Allergy Unknown suicidal Verified 01/21/23 09:52 thoughts Review of Systems Review of Systems: CONSTITUTIONAL: Denies fever, chills, or sweats. EYES: Denies visual changes, redness, or discharge. ENT: Denies rhinorrhea, congestion,reports sore throat for 1 week denies otalgia. CARDIOVASCULAR: reports right sided chest pain that started today, denies palpitations, or edema. RESPIRATORY: reports productive cough of white sputum for 2 days GASTROINTESTINAL: Denies abdominal pain, reports nausea with vomiting X2 yesterday, denies diarrhea. GENITOURINARY: Denies dysuria or hematuria. SKIN: Denies rash or itching. MUSCULOSKELETAL: Denies back pain, joint pain, or myalgia. NEUROLOGIC: Denies headache, numbness, dizziness, or weakness. PSYCHIATRIC: Denies anxiety or depression. [facility] Past Medical History Medical History Anxiety Astigmatism, bilateral Chronic pelvic pain in female Depression Depression with anxiety Dyspareunia Endometriosis IBS (irritable bowel syndrome) Migraine Panic disorder without agoraphobia Pelvic varices RUQ pain Uterine prolapse UTI (urinary tract infection) Surgical History Surgical History History of dilation and curettage History of exploratory laparotomy History of left salpingo-oophorectomy History of total vaginal hysterectomy (TVH) (~05/2021) with right salpingectomy Family History Family History Grandparent Diabetes mellitus Family history of malignant neoplasm of brain Mother Diabetes mellitus Family history of elevated blood lipids Family history of anemia Father Hypertension Other Family history of malignant neoplasm of kidney Family history of pancreatic cancer Social History Social History Years smoked: 8 Smoking status: Former smoker Tobacco type: cigarettes Additional smoking assessment comments: QUIT 1 YEAR AGO Alcohol intake: never Substance use: never Substance use type: does not use Lack of Transportation: No Lack of Food: Never True Current Housing: I Have Housing Concerned About Future Housing: No Difficulty Paying Gas/Electric Bills: No Difficulty Paying for Meds: No Currently Unemployed: No Education: High School Diploma/GED Difficulty w/ Childcare or Family Care: No Living arrangements: with family Gender identity (if verbalized by the patient): Female Spiritual care concerns: No Exam Narrative: GENERAL: Well-appearing, well-nourished, and in no acute distress. HEAD: Normocephalic, atraumatic. EYES: PERRLA and EOMI. ENT: Nares clear, no rhinorrhea or epistaxis. Mucous membranes moist. Oropharynx without tonsillar hypertrophy exudate but mild erythema noted no other lesions. NECK: Supple. No adenopathy or masses. No carotid bruits or JVD CHEST: Clear to auscultation. No respiratory distress. No wheezes rales or rhonchi HEART: Regular rate and rhythm. No murmur heard. Normal peripheral pulses. ABDOMEN:
[2023-04-29 10:12] LABS: Basophils Absolute Auto 0.1 K/mm3 (0.0-0.1); Basophils Percent Auto 0.8 % (0.2-1.2); Eosinophils Absolute Auto 0.3 K/mm3 (0-0.3); Eosinophils Percent Auto 4.9 % (0-4.4); Hematocrit 43.4 % (37.0-47.0); Immature Granulocyte Absolute 0.01 K/mm3 (0.00-0.031); Immature Granulocyte Percent A 0.2 % (0-0.5); Lymphocytes Absolute Auto 1.67 K/mm3 (0.9-3.2); Lymphocytes Percent Auto 27.2 % (18.3-44.2); Mean Corpuscular HGB Conc 32.3 g/dl (32-36); Mean Corpuscular Hemoglobin 30.2 pg (26-34); Mean Corpuscular Volume 93.7 fl (80-100); Mean Platelet Volume 8.9 fl (7.4-10.4); Monocytes Absolute Auto 0.4 K/mm3 (0.1-0.6); Neutrophils Absolute Auto 3.7 K/mm3 (1.3-6.7); Neutrophils Percent Auto 59.9 % (45.5-73.1); Platelet Count Result 322 k/mm3 (150-375); Red Blood Count 4.63 M/mm3 (4.2-5.4); Red Cell Distribution Width 11.9 % (11.5-14.5); White Blood Count 6.2 K/mm3 (4.5-10.0)
[2023-04-29 10:14] LABS: Appearance Urine Clear (Clear); Bilirubin Urine Negative (Negative); Blood Urine Negative (Negative); Color Urine Yellow (Yellow); Glucose Urine UA Negative (Negative); Ketones Urine Negative (Negative); Leukocyte Esterase Ur Negative LEU/UL (Negative); Nitrate Urine Negative (Negative); Protein Urine Negative (Negative); Specific Grav Ur 1.005 (1.001-1.035); pH Urine 7.5 (5.0-9.0)
[2023-04-29 10:20] LABS: Add Urine Microscopic? NO
[2023-04-29 10:21] LABS: Alanine Aminotransferase 25 U/L (6-35); Albumin Level 4.5 g/dL (3.5-5.1); Alkaline Phosphatase 50 U/L (38-126); Anion Gap 6 mmol/L (8-16); Aspartate Amino Transferase 26 U/L (14-36); Bilirubin,Total 1.7 mg/dL (0.2-1.3); Blood Urea Nitrogen 6 mg/dL (7-17); Calcium 9.3 mg/dL (8.4-10.2); Carbon Dioxide 26 mmol/L (22-30); Chloride 106 mmol/L (98-107); Estimated CRCL calculation 90 ml/min; Estimated Glomerular Filt Rate > 60; Glucose 100 mg/dL (65-110); Lipase 57 U/L (23-300); Sodium 138 mmol/L (137-145)
[2023-04-29 10:24] LABS: Partial Thromboplastin Time 26.4 SECONDS (22.3-36.8)
[2023-04-29 10:32] LABS: Troponin I < 0.012 ng/mL (0.000-0.034)
[2023-04-29] MEDS: SODIUM CHLORIDE 0.9% IV 1,000 ML 999 ML IV CONT (10:38)
[2023-04-29] MEDS: FAMOTIDINE 20 MG/2 ML VIAL IV PUSH (10:39)
[2023-04-29] MEDS: ONDANSETRON INJ 4 MG/2 ML VIAL IV PUSH (10:39)
[2023-04-29] MEDS: ACETAMINOPHEN 500 MG TABLET 1000 MG PO (10:39)
[2023-04-29 10:41] LABS: Strep Group A RT-PCR NOT DETECTED (Negative)
[2023-04-29 10:50] LABS: Influenza A QL RT-PCR Negative (Negative); Influenza B QL RT-PCR Negative (Negative); SARS-CoV-2 RNA PCR Negative (Negative)
== END 2023-04-29 11:34 | disposition home or self-care (01) ==
PROVIDERS: Emergency Medicine; Emergency Provider Nurse Practitioner Family; PCP Family Medicine
DX: B34.9 Viral infection, unspecified (principal); Z87.891 Personal history of nicotine dependence; Z20.822 Contact with and (suspected) exposure to COVID-19
CPT/HCPCS: 36415; 71046; 80053; 81003; 83690; 84484; 85025; 85610; 85730; 87636; 87651; 93005; 96361; 96374; 96375; 99284; A9270; J2405; J7030

== ENCOUNTER 2023-06-01 13:52 | Emergency (ER) | payer OTHER, SELFPAY ==
[2023-06-01 14:10] VITALS: BP 100/65; PULSE 86; RESP 18; TEMP 37.2; O2SAT 98
--- NOTE | 2023-06-01 14:27 | ED.GENADULT ---
HPI - General Adult General Chief complaint: Fever Stated complaint: fever, nausea, cough Time Seen by Provider: 06/01/23 14:14 History of Present Illness HPI narrative: Patient is a 28-year-old female with history of endometriosis status post hysterectomy here with fever, cough, abdominal pain, vaginal discharge. She states that she has been having a fever at home for the last couple of days. This is been associated with a cough as well as some nausea. She notes that her daughter is sick with similar symptoms that has been experiencing higher fever at home. 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 She does show Ali notes that she has been having some white vaginal discharge for the last couple of days. She denies concern for STD but does note history of recurrent bacterial vaginosis. She is unsure if this is playing a role in her symptoms at this time. She does have her daughter with her and is declining a pelvic exam. Related Data Allergies Allergy/AdvReac Type Severity Reaction Status Date / Time garlic Allergy Unknown HIVES Verified 01/21/23 09:52 latex Allergy Unknown RASH Verified 01/21/23 09:52 sertraline Allergy Unknown suicidal Verified 01/21/23 09:52 thoughts Review of Systems Review of Systems: All systems reviewed & are unremarkable except as noted in HPI and below PMFSH Past Medical History Medical History Anxiety Astigmatism, bilateral Chronic pelvic pain in female Depression Depression with anxiety Dyspareunia Endometriosis IBS (irritable bowel syndrome) Migraine Panic disorder without agoraphobia Pelvic varices RUQ pain Uterine prolapse UTI (urinary tract infection) Surgical History Surgical History History of dilation and curettage History of exploratory laparotomy History of left salpingo-oophorectomy History of total vaginal hysterectomy (TVH) (~05/2021) with right salpingectomy Family History Family History Grandparent Diabetes mellitus Family history of malignant neoplasm of brain Mother Diabetes mellitus Family history of elevated blood lipids Family history of anemia Father Hypertension Other Family history of malignant neoplasm of kidney Family history of pancreatic cancer Social History Social History Years smoked: 8 Smoking status: Former smoker Tobacco type: cigarettes Additional smoking assessment comments: QUIT 1 YEAR AGO Alcohol intake: never Substance use: never Substance use type: does not use Lack of Transportation: No Lack of Food: Never True Current Housing: I Have Housing Concerned About Future Housing: No Difficulty Paying Gas/Electric Bills: No Difficulty Paying for Meds: No Currently Unemployed: No Education: High School Diploma/GED Difficulty w/ Childcare or Family Care: No Living arrangements: with family Gender identity (if verbalized by the patient): Female Spiritual care concerns: No Exam Narrative: GENERAL: Well-appearing, well-nourished, and in no acute distress. HEAD: Normocephalic, atraumatic. EYES: PERRLA and EOMI. ENT: Nares clear. Mucous membranes moist. Poor dentition. NECK: Supple. CHEST: Clear to auscultation. No respiratory distress. HEART: Regular rate and rhythm. Normal peripheral pulses. ABDOMEN: Soft, nontender, nondistended. EXTREMITIES: Normal range of motion. No edema. SKIN: Warm, dry, no rash. NEURO: No focal deficits. Alert and oriented x3. PSYCH: Normal mood and affect. Course Course Emergency Course: Chart review performed. Patient here for cough, fever, nausea which began yesterday. Exposure to Flu A at work. Triage vitals grossly normal, afebrile. patient seen evaluated, no
[2023-06-01 14:51] LABS: Influenza A QL RT-PCR Negative (Negative); Influenza B QL RT-PCR Negative (Negative); RSV RNA, RT-PCR Negative (Negative); SARS-CoV-2 RNA PCR Negative (Negative)
[2023-06-01] MEDS: ONDANSETRON HCL ODT 4 MG TABLET PO (15:13)
[2023-06-01] MEDS: metroNIDAZOLE 500 MG TABLET PO (15:14)
[2023-06-01] MEDS: HYOSCYAMINE SULFATE 0.125 MG TABLET PO (15:14)
[2023-06-01 15:57] LABS: Bacteria Urine None Seen /hpf; Non Pathogenic Casts 0-2; Squamous Epithelial Cell Urine Occasional /hpf (Few); WBC Urine 0-5 /hpf
[2023-06-01 16:36] LABS: Appearance Urine Clear (Clear); Bilirubin Urine Negative (Negative); Blood Urine 1+ (Negative); Color Urine Yellow (Yellow); Glucose Urine UA Negative (Negative); Ketones Urine Negative (Negative); Leukocyte Esterase Ur Negative LEU/UL (Negative); Nitrate Urine Negative (Negative); Protein Urine Negative (Negative); Specific Grav Ur 1.021 (1.001-1.035); pH Urine 6.5 (5.0-9.0)
[2023-06-01 16:50] LABS: Add Urine Microscopic? YES
[2023-06-01 18:02] LABS: Trichomonas Vag PCR NOT DETECTED (NOT DETECTE)
--- NOTE | 2023-06-01 19:09 | PC.NURSE ---
Report received from JOSE J Anderson. Assumed care of patient at this time.
[2023-06-01 19:39] VITALS: BP 105/63; PULSE 63; RESP 17; TEMP 37; O2SAT 97
[2023-06-01 19:58] LABS: Chlamydia trachomatis NOT DETECTED (NOT DETECTE); Neisseria gonorrhoeae PCR NOT DETECTED (NOT DETECTE)
== END 2023-06-01 19:40 | disposition home or self-care (01) ==
PROVIDERS: Emergency Medicine; Emergency Provider Student in an Organized Health Care Education/Training Program; PCP Family Medicine
DX: B34.9 Viral infection, unspecified (principal); R11.2 Nausea with vomiting, unspecified; N89.8 Other specified noninflammatory disorders of vagina; Z87.891 Personal history of nicotine dependence; Z20.822 Contact with and (suspected) exposure to COVID-19
CPT/HCPCS: 81001; 81025; 87491; 87591; 87637; 87661; 99284; A9270

== ENCOUNTER 2023-08-01 15:21 | Outpatient (CLI) | payer OTHER, SELFPAY ==
--- NOTE | ~2023-08-01 | US_ITS ---
EXAMINATION: US pelvic complete w TV DATE: 08/01/2023 15:59 INDICATION: Pelvic pain. TECHNIQUE: Multiple transabdominal and transvaginal sonographic images of the pelvis were obtained. COMPARISON: Ultrasound 02/15/2022 FINDINGS: TRANSABDOMINAL ULTRASOUND: The uterus is absent. There is no free fluid in the pelvis. TRANSVAGINAL ULTRASOUND: The right ovary measures 3.8 x 1.9 x 2.0 cm. There is normal vascular flow in right ovary. The left o vary is absent. IMPRESSION: 1. Normal right ovary. 2. Hysterectomy and left oophorectomy. Reviewed, dictated and finalized at location E. DENCE MANAGER
== END 2023-08-01 15:22 | disposition home or self-care (01) ==
LOC: ANHIMG 15:24
PROVIDERS: PCP Family Medicine; Visit Provider Obstetrics & Gynecology
DX: R10.2 Pelvic and perineal pain (principal); Z90.710 Acquired absence of both cervix and uterus
CPT/HCPCS: 76830; 76856

== ENCOUNTER 2023-08-15 03:00 | Day surgery (SDC) | payer OTHER, SELFPAY ==
[2023-08-11 11:01] VITALS: BMI 20.5
--- NOTE | 2023-08-11 11:04 | PC.NURSE ---
Report to the Outpatient Waiting Room, entrance under the green pavilion located off [facility], at time 0730 on date 08/15/23. Planned Procedure Time: 0930. Time changes happen often and if your time is changed the preop area will call you the afternoon before. - You and your visitor will be asked to self-screen and do not enter if you have any COVID symptoms. - A mask is optional within the hospital at this time. Patients may have clear liquids (water, carbonated beverages, clear teas, apple juice) until 3 hours prior to surgery with a maximum of 20 ounces. - No food from midnight until time of surgery Take the following medications with a SIP of water the morning of surgery: N/A DO NOT STOP ANY OF YOUR OTHER PRESCRIPTION MEDICATIONS PRIOR TO SURGERY ?EXCEPT THE FOLLOWING Medications to discontinue per physician: N/A Date to take last dose: N/A Please no make-up, nail tajik, hairspray, perfume, deodorant, or body powder the day of surgery. No jewelry (including any body piercings) or valuables the day of surgery, leave them at home. Please take a shower or bath the night before, or the morning of, surgery with an antibacterial soap. Wear comfortable, loose fitting clothing. - Jewelry must be removed prior to entering the operating room. Rings and piercings that are not removed may be cut off. - The hospital will not accept responsibility for valuables. - Please leave all valuables, including medications, at home the day of surgery. If you are going home after surgery, a licensed stock driver must drive you home. - NO public transportation without another adult if you receive anesthesia. - We recommend that an adult stay with you for 24 hours following discharge. - We also recommend that you do not drive, make important decision, drink alcoholic beverages, or take any drugs that were not prescribed by your health care provider for at least 24 hours after your discharge time. Follow any additional instructions given to you from your surgeon. If you or anyone in your household have experienced Covid symptoms in the past week, please notify your surgeon or the nurse liaison at the phone number below for possible testing. Telephone instructions given to PT - WASHINGTON RUIZ and asked if any additional questions and then verbalized understanding. Patient advised to call surgeon office or pre surgery nurse liaison [phone] if any additional questions.
--- NOTE | 2023-08-13 07:20 | PM.IMHP ---
H&P: HPI History of Present Illness Date/Time: 08/13/23 07:20 Chief Complaint: Pelvic pain Narrative: 28-year-old 4 para 2 stands fetus hysterectomy admitted diagnostic. She has had pain discomfort dyspareunia. She does have a history of endometriosis and that is expected here she received the [employer] handout entitled laparoscopy. She had all questions answered and asked to proceed PMFSH Past Medical History Medical History Anxiety Astigmatism, bilateral Chronic pelvic pain in female Depression Depression with anxiety Dyspareunia Endometriosis IBS (irritable bowel syndrome) Migraine Panic disorder without agoraphobia Pelvic varices RUQ pain Uterine prolapse UTI (urinary tract infection) Surgical History Surgical History History of dilation and curettage History of exploratory laparotomy History of left salpingo-oophorectomy History of total vaginal hysterectomy (TVH) (~05/2021) with right salpingectomy Family History Family History Grandparent Diabetes mellitus Family history of malignant neoplasm of brain Mother Diabetes mellitus Family history of elevated blood lipids Family history of anemia Father Hypertension Other Family history of malignant neoplasm of kidney Family history of pancreatic cancer Social History Social History Years smoked: 5 Smoking status: Former smoker Tobacco type: cigarettes Smoking end date: 06/23/19 Additional smoking assessment comments: QUIT 1 YEAR AGO Alcohol intake: never Substance use: never Substance use type: does not use Lack of Transportation: No Lack of Food: Never True Current Housing: I Have Housing Concerned About Future Housing: No Difficulty Paying Gas/Electric Bills: No Difficulty Paying for Meds: No Currently Unemployed: No Education: High School Diploma/GED Difficulty w/ Childcare or Family Care: No Living arrangements: with family Gender identity (if verbalized by the patient): Female Spiritual care concerns: No Meds Home Medications and Allergies Home Medications Medication Instructions Recorded Confirmed Type No Home Medications 08/11/23 08/11/23 History Allergies Allergy/AdvReac Type Severity Reaction Status Date / Time garlic Allergy Unknown HIVES Verified 08/11/23 11:00 latex Allergy Unknown RASH Verified 08/11/23 11:00 sertraline Allergy Unknown suicidal Verified 08/11/23 11:00 thoughts Exam Const: General: cooperative, healthy appearing and comfortable Nutritional Appearance: average body habitus Orientation/consciousness: oriented to person, oriented to place and oriented to time Resp: Effort & Inspection: normal respiratory effort Cardio: Rate: regular rate Rhythm: regular rhythm Heart sounds: S1 normal heart sound present and S2 normal heart sound present GI: Inspection: normal to inspection : External Female Exam: normal external appearance Speculum Exam - Vagina: normal appearance of the vagina Speculum Exam - Cervix: Cervix absent Bimanual exam- vagina & uterus: uterus absent Bimanual Exam- Adnexa, other: tender bilaterally Assessment and Plan Assessment and plan (1) Dyspareunia: Status: Acute (2) Chronic pelvic pain in female: Code(s): R10.2 - Pelvic and perineal pain; G89.29 - Other chronic pain Status: Acute Plan Laparoscopy
[2023-08-15] VITALS (7 sets, daily range): BP systolic 93–112; BP diastolic 52–99; PULSE 56–73; RESP 12–17; TEMP 36.3–37.3; O2SAT 10–100
--- NOTE | 2023-08-15 06:33 | WPDHPUPDATE1 ---
History and Physical Update Update Date/Time: 08/15/23 06:33 History and Physical has been reviewed, including an updated exam of the patient. There are NO changes in the patient's condition. Risks, benefits, and alternatives have been discussed and questions answered. Patient agrees to proceed with procedure.
--- NOTE | 2023-08-15 08:32 | WPDANESEPPF ---
Anes - Initial Pre Proc Eval Procedure: Operation Date: 08/15/23 09:30 Proposed Procedures p Diagnostic Laparoscopy with Cauterization of Endometriosis - Fan Sweet MD Date/Time: 08/15/23 08:32 Surgeon: Fan Sweet MD Pre Op Diagnosis: pelvic pain, endometriosis,dysmenorrhea, Patient Data Age: 28 Gender: F Height: 1.55 m Weight: 49.45 kg Allergies Allergy/AdvReac Type Severity Reaction Status Date / Time garlic Allergy Unknown HIVES Verified 08/11/23 11:00 latex Allergy Unknown RASH Verified 08/11/23 11:00 sertraline Allergy Unknown suicidal Verified 08/11/23 11:00 thoughts Home Medications Medication Instructions Recorded Confirmed Type hydrocodone 5 mg-acetaminophen 325 1 tablet PO Q4H PRN pain #20 tabs 08/15/23 Rx mg tablet Patient hx anesthesia problems: none Family hx anesthesia problems: none Results Review: All pre-operative results and documents have been reviewed as part of the pre-operative evaluation. [facility] Past Medical History Medical History Anxiety Astigmatism, bilateral Chronic pelvic pain in female Depression Depression with anxiety Dyspareunia Endometriosis IBS (irritable bowel syndrome) Migraine Panic disorder without agoraphobia Pelvic varices RUQ pain Uterine prolapse UTI (urinary tract infection) Surgical History Surgical History History of dilation and curettage History of exploratory laparotomy History of left salpingo-oophorectomy History of total vaginal hysterectomy (TVH) (~05/2021) with right salpingectomy Family History Family History Grandparent Diabetes mellitus Family history of malignant neoplasm of brain Mother Diabetes mellitus Family history of elevated blood lipids Family history of anemia Father Hypertension Other Family history of malignant neoplasm of kidney Family history of pancreatic cancer Social History Social History Years smoked: 5 Smoking status: Former smoker Tobacco type: cigarettes Smoking end date: 06/23/19 Additional smoking assessment comments: QUIT 1 YEAR AGO Alcohol intake: never Substance use: never Substance use type: does not use Lack of Transportation: No Lack of Food: Never True Current Housing: I Have Housing Concerned About Future Housing: No Difficulty Paying Gas/Electric Bills: No Difficulty Paying for Meds: No Currently Unemployed: No Education: High School Diploma/GED Difficulty w/ Childcare or Family Care: No Living arrangements: with family Gender identity (if verbalized by the patient): Female Spiritual care concerns: No Anes - Eval Final PreProcedure Day of Procedure 08/15/23 08:32 Patient weight: normal Heart: regular rate and rhythm Lungs: clear to auscultation Airway: Mallampati scale class III and special considerations poor dentition Neurological: alert and oriented Last oral intake: >/= 8 hours ASA classification: III Emergent: no Anesthetic plan: proceed Anesthesia type and monitoring: general ETT and standard monitoring Results Review: All pre-operative results and documents have been reviewed as part of the pre-operative evaluation. Informed Consent: The patient's anesthetic plan and its attendant risks and benefits were discussed with the patient/family/POA. Questions were solicited and answers provided to the satisfaction of the patient/family/POA.
[2023-08-15] MEDS: KETOROLAC 15 MG/ML VIAL (*BKC) IV PUSH (08:35)
[2023-08-15] MEDS: ACETAMINOPHEN 500 MG TABLET 1000 MG PO (08:35)
[2023-08-15] MEDS: SCOPOLAMINE 1 MG PATCH 1 PATCH TRANSDERM (08:35)
[2023-08-15] MEDS: LACTATED RINGERS 1,000 ML 30 ML IV CONT (08:35)
--- NOTE | 2023-08-15 09:11 | P.OP_ITS ---
Procedure Note - Detailed Date of Procedure 08/15/23 Pre-op Diagnosis pelvic pain, endometriosis,, Post-op Diagnosis Same Procedure Performed Laparoscopic destruction of endometriosis Surgeon Fan Sweet MD Anesthesia General Indications this is a 28-year-old female status post hysterectomy and left salpingo- oophorectomy the loss laparoscopy secondary to pelvic pain. Findings Uterus left ovary and tube absent. Left fallopian tube right fallopian tube absent. Normal-appearing right ovary. Small areas of endometriosis along uterosacral ligamen Description of Procedure ts. Patient was prepped draped in normal sterile fashion placed in the dorsal lithotomy position. Under excellent general trach anesthesia weighted speculum placed in posterior fornix vagina. Anterior lip observed a sponge stick was placed in the vagina. The bladder then drained of clear fluid. Sponge stick placed in the vagina the gloves were changed. Infraumbilical incision made the Veress needle passed in the abdomen. Abdomen filled with CO2 gas [id number]. 5Mm trocar advanced under direct visualization assuring no injury. Patient placed in Trendelenburg and a suprapubic incision made. The 5mm trocar advanced under direct visualization assuring injury. About 20cc of serosanguineous fluid was seen in the cul-de-sac this was suction and removed. The small areas of endometriosis were seen along the right and left uterosacral ligament these were cauterized of 35 w per 2nd with monopolar cautery. Irrigation undertaken until clear. The right ovary appeared within normal limits as did the appendix and photo documentation undertaken. No other abnormalities were seen. The lower site removed. The gas removed from the abdomen. The upper site removed. The incisions closed with 4 Monocryl and the instruments removed from the vagina the patient went recovery in satisfactory condition. All sponge, needle, instrument counts were correct. There were no immediate complications Estimated Blood Loss 5 Drains No Packing No Pathology None sent Complications No immediate complications Condition Stable Disposition PACU
[2023-08-15] MEDS: fentaNYL CITRATE INJ (*CRX) 100 MCG/2 ML VIAL 25 MCG IV PUSH ×4 (09:35→09:41)
[2023-08-15] MEDS: ONDANSETRON INJ 4 MG/2 ML VIAL IV PUSH (09:54)
== END 2023-08-15 10:55 | disposition home or self-care (01) ==
PROVIDERS: PCP Family Medicine; Visit Provider Obstetrics & Gynecology
PROC: (CPT 49320; principal; 2023-08-15 09:30)
DX: N80.3C3 Endometriosis of bilateral uterosacral ligament(s), unspecified depth (principal); Z90.710 Acquired absence of both cervix and uterus; Z87.891 Personal history of nicotine dependence
CPT/HCPCS: 58662; 36415; 86850; 86900; 86901; A9270; J0330; J1100; J1885; J2250; J2405; J2704; J3010; J7120

== ENCOUNTER 2023-12-22 17:56 | Emergency (ER) | payer OTHER, SELFPAY ==
--- NOTE | ~2023-12-22 | CT_ITS ---
EXAMINATION: CT abdomen pelvis w con DATE: 12/22/2023 19:37 INDICATION: RIGHT LOWER QUADRANT PAIN TECHNIQUE: Computed tomography (CT) of the abdomen and pelvis was performed with 100 mL Omnipaque-350 intravenous contrast. Automated exposure control and iterative reconstruction technique were employe d. The dose-length product was 219.14 mGy-cm. COMPARISON: 12/06/2022. FINDINGS: Lower thorax: Unremarkable Liver: Normal. Biliary/Gallbladder: Gallbladder is normal. No bile duct dilation. Pancreas: No mass or duct dilation. Spleen: Normal. Adrenals:No mass. Kidneys: No suspicious mass, obstructing stone, or hydronephrosis. GI tract: No small or large bowel dilation. Appendix is not confidently visualized, however no inflam matory process is detected in the right lower quadrant. Mesentery/Peritoneum: No ascites, mass, or free air. Retroperitoneum: No mass. Pelvis: Normal urinary bladder. Normal right ovary with a 2.1 cm cyst which requires no additional ev aluation. Left ovary is not visualized.. Soft Tissues: Soft tissues and body wall unremarkable. Bones: No acute osseous finding. IMPRESSION: No acute abdominopelvic process detected. Reviewed, dictated and finalized at location K.
[2023-12-22 18:14] VITALS: BP 115/60; PULSE 60; RESP 18; TEMP 36.6; O2SAT 100
--- NOTE | 2023-12-22 18:43 | ED.ABDPAIN ---
HPI - Abdominal Pain General Chief Complaint: Abdominal Pain Stated Complaint: Abd pain Time Seen by Provider: 12/22/23 18:42 Source: patient Mode of arrival: ambulatory Limitations: no limitations History of Present Illness HPI narrative: 28 YEARS OLD WHITE FEMALE PRESENTS WITH INTERMITTENT ABDOMINAL PAIN FOR THE LAST 7 DAYS, SHARP, PRESSURE, LATELY MORE ON THE RIGHT SIDE OF THE ABDOMEN, PATIENT BELIEVES THAT HER BELLY IS SWOLLEN TODAY COMPARED TO LAST FEW DAYS. PATIENT REPORT INTERMITTENT NAUSEA, SHE DENIES ANY RADIATION OF PAIN, PAIN IS BETTER WITH TYLENOL, GETS WORSE WITH ACTIVITIES. HISTORY OF HYSTERECTOMY SECONDARY TO TO ENDOMETRIOSIS, DOES NOT SMOKE OR DRINK, USES MARIJUANA OCCASIONALLY. Related Data Allergies Allergy/AdvReac Type Severity Reaction Status Date / Time garlic Allergy Unknown HIVES Verified 08/26/23 11:40 latex Allergy Unknown RASH Verified 08/26/23 11:40 sertraline Allergy Unknown suicidal Verified 08/26/23 11:40 thoughts Review of Systems Review of Systems: All systems reviewed & are unremarkable except as noted in HPI and below PMFSH Past Medical History Medical History Anxiety Astigmatism, bilateral Chronic pelvic pain in female Depression Depression with anxiety Dyspareunia Endometriosis IBS (irritable bowel syndrome) Migraine Panic disorder without agoraphobia Pelvic varices RUQ pain Uterine prolapse UTI (urinary tract infection) Surgical History Surgical History History of dilation and curettage History of exploratory laparotomy History of left salpingo-oophorectomy History of total vaginal hysterectomy (TVH) (~05/2021) with right salpingectomy Family History Family History Grandparent Diabetes mellitus Family history of malignant neoplasm of brain Mother Diabetes mellitus Family history of elevated blood lipids Family history of anemia Father Hypertension Other Family history of malignant neoplasm of kidney Family history of pancreatic cancer Social History Social History Years smoked: 5 Smoking status: Former smoker Tobacco type: cigarettes Smoking end date: 06/23/19 Additional smoking assessment comments: QUIT 1 YEAR AGO Alcohol intake: never Substance use: never Substance use type: does not use Lack of Transportation: No Lack of Food: Never True Current Housing: I Have Housing Concerned About Future Housing: No Difficulty Paying Gas/Electric Bills: No Difficulty Paying for Meds: No Currently Unemployed: No Education: High School Diploma/GED Difficulty w/ Childcare or Family Care: No Living arrangements: with family Gender identity (if verbalized by the patient): Female Spiritual care concerns: No Exam Narrative: GENERAL APPEARANCE: WELL-DEVELOPED, WELL-NOURISHED SKIN: NORMAL COLOR HEAD: NORMOCEPHALIC, NONTRAUMATIC EYES: CLEAR CONJUNCTIVA ENT: OROPHARYNX NORMAL, EARS NORMAL, NOSE NORMAL NECK: SUPPLE, NONTENDER CHEST AND RESPIRATORY: AIRWAY PATENT, NO RESPIRATORY DISTRESS, NO ACCESSORY MUSCLE USE HEART: REGULAR RATE/RHYTHM ABDOMEN: SOFT, DIFFUSE TENDERNESS MAINLY ON THE RIGHT MID ABDOMEN, NO ORGANOMEGALY, QUIET BOWEL SOUNDS VASCULAR: NORMAL PERIPHERAL PULSES, NORMAL CAPILLARY REFILL. MUSCULOSKELETAL: NORMAL RANGE OF MOTION, NONTENDER BACK NEUROLOGIC: ALERT AND ORIENTED ?3, STIFF LEG DERRICK OPERATOR IS NORMAL TESTED, NO GROSS MOTOR DEFICIT Course Vital Signs Vital signs: Vital Signs Temperature 36.6 C 12/22/23 18:14 Pulse Rate 6
[2023-12-22 19:13] LABS: Appearance Urine Clear (Clear); Bacteria Urine None Seen /hpf; Basophils Percent Auto 0.5 % (0.2-1.2); Bilirubin Urine Negative (Negative); Blood Urine Non-Hemolyzed Trace (Negative); Color Urine Yellow (Yellow); Eosinophils Absolute Auto 0.2 K/mm3 (0-0.3); Eosinophils Percent Auto 2.1 % (0-4.4); Glucose Urine UA Negative (Negative); Hemoglobin 13.9 g/dL (12.0-15.0); Immature Granulocyte Absolute 0.01 K/mm3 (0.00-0.031); Immature Granulocyte Percent A 0.1 % (0-0.5); Ketones Urine Negative (Negative); Leukocyte Esterase Ur Negative LEU/UL (Negative); Lymphocytes Absolute Auto 2.28 K/mm3 (0.9-3.2); Lymphocytes Percent Auto 28.5 % (18.3-44.2); Mean Corpuscular HGB Conc 33.9 g/dl (32-36); Mean Corpuscular Hemoglobin 31.4 pg (26-34); Mean Corpuscular Volume 92.8 fl (80-100); Monocytes Absolute Auto 0.6 K/mm3 (0.1-0.6); Monocytes Percent Auto 7.1 % (2.6-8.5); Neutrophils Absolute Auto 4.9 K/mm3 (1.3-6.7); Neutrophils Percent Auto 61.7 % (45.5-73.1); Nitrate Urine Negative (Negative); Non Pathogenic Casts 0-2; Platelet Count Result 351 k/mm3 (150-375); Protein Urine Negative (Negative); Red Blood Count 4.42 M/mm3 (4.2-5.4); Red Cell Distribution Width 11.6 % (11.5-14.5); Specific Grav Ur 1.007 (1.001-1.035); Squamous Epithelial Cell Urine None Seen /hpf (Few); Urobilinogen Urine 0.2 mg/dL (<2.0); WBC Urine 0-5 /hpf (0-3); pH Urine 7.5 (5.0-9.0)
[2023-12-22] MEDS: SODIUM CHLORIDE 0.9% IV 1,000 ML 999 ML IV CONT (19:17)
[2023-12-22] MEDS: ONDANSETRON INJ 4 MG/2 ML VIAL IV PUSH (19:17)
[2023-12-22] MEDS: MORPHINE SULFATE (*CRX) 4 MG/ML INJ IV PUSH (19:17)
[2023-12-22 19:19] LABS: Alanine Aminotransferase 31 U/L (6-35); Albumin Level 4.6 g/dL (3.5-5.1); Alkaline Phosphatase 63 U/L (38-126); Anion Gap 6 mmol/L (4-12); Aspartate Amino Transferase 33 U/L (14-36); Bilirubin,Total 0.9 mg/dL (0.2-1.3); Blood Urea Nitrogen 10 mg/dL (7-17); Calcium 9.1 mg/dL (8.4-10.2); Carbon Dioxide 29 mmol/L (22-30); Chloride 105 mmol/L (98-107); Estimated CRCL calculation 89 ml/min; Estimated Glomerular Filt Rate > 60; Glucose 90 mg/dL (65-110); Lipase 56 U/L (23-300); Potassium 3.7 mmol/L (3.4-5.0); Sodium 140 mmol/L (137-145)
[2023-12-22 19:20] LABS: Add Urine Microscopic? NO
== END 2023-12-22 20:30 | disposition home or self-care (01) ==
PROVIDERS: Emergency Provider Emergency Medicine; PCP Family Medicine
DX: R10.9 Unspecified abdominal pain (principal); Z87.891 Personal history of nicotine dependence
CPT/HCPCS: 36415; 74177; 80053; 81003; 83690; 85025; 96361; 96374; 96375; 99284; J2270; J2405; J7030; Q9967

== ENCOUNTER 2024-02-26 12:37 | Emergency (ER) | payer OTHER, SELFPAY ==
[2024-02-26 12:40] VITALS: BP 131/69; PULSE 68; RESP 16; TEMP 36.6; O2SAT 100
--- NOTE | 2024-02-26 14:40 | ED.DIZZY ---
HPI - Dizziness General Chief Complaint: Dizziness <Hammad Gaming PA-C - Last Filed: 02/26/24 14:44> Stated Complaint: dizzy <Hammad Gaming PA-C - Last Filed: 02/26/24 14:44> Time Seen by Provider: 02/26/24 14:38 <Hammad Gaming PA-C - Last Filed: 02/26/24 14:44> Focused HPI: This is a 28-year-old female who presents to the ED for chief complaint of dizziness while walking in the school cafeteria today. She was up and walking when she started lightheaded, woozy and that she might pass out. She also reports some sensations of room spinning. States that she has been feeling somewhat improved since arrival and sitting down. However still somewhat symptomatic with lightheadedness. Denies associated chest pain, shortness of breath, palpitations. Denies recent illness, vomiting, diarrhea. History of anemia that was last measured and August of 2023. Takes iron regularly GENERAL: Well-appearing, well-nourished, and in no acute distress. HEAD: Normocephalic, atraumatic. CHEST: Clear to auscultation. No respiratory distress. HEART: Regular rate and rhythm. NEURO: Alert and oriented x3. Patient screened in triage and initial orders placed. Additional care and disposition to be based upon diagnostic testing and treatment. <Hammad Gaming PA-C - Last Filed: 02/26/24 14:44> Source: patient <Hammad Gaming PA-C - Last Filed: 02/26/24 14:44> other (significant other) <Jessica Ortiz MD - Last Filed: 02/27/24 09:42> Mode of arrival: wheelchair <Hammad Gaming PA-C - Last Filed: 02/26/24 14:44> Limitations: no limitations <Hammad Gaming PA-C - Last Filed: 02/26/24 14:44> History of Present Illness HPI Narrative: Agree with the above with the following additions/corrections: States episode was not preceded by any position changes or moving her head. She was outside and though it is a warm day she didn't feel particularly overheated. She ate breakfast including snacking on some of the vegetables she was chopping for lunch but didn't end up eating lunch because this happened. Denies nausea, chest pain, shortness of breath. Had been feeling unwell on Friday but attributed that to her endometriosis flare; status post hysterectomy. States her hands got shaky and her legs felt like noodles.' School nurse helped her lay on the ground and put her legs up. Unsure if sense of disequilibrium but felt lightheaded and like the fletcher and people in the cafeteria were spinning. <Jessica Ortiz MD - Last Filed: 02/27/24 09:42> Related Data Allergies/Adverse Reactions: Allergies Allergy/AdvReac Type Severity Reaction Status Date / Time garlic Allergy Unknown HIVES Verified 08/26/23 11:40 latex Allergy Unknown RASH Verified 08/26/23 11:40 sertraline Allergy Unknown suicidal Verified 08/26/23 11:40 thoughts <Hammad Gaming PA-C - Last Filed: 02/26/24 14:44> [facility] Past Medical History Medical History: Medical History Anxiety Astigmatism, bilateral Chronic pelvic pain in female Depression Depression with anxiety Dyspareunia Endometriosis IBS (irritable bowel syndrome) Migraine Panic disorder without agoraphobia Pelvic varices RUQ pain Uterine prolapse UTI (urinary tract infection) <Hammad Gaming PA-C - Last Filed: 02/26/24 14:44> Surgical History Surgical History: Surgical History History of dilation and curettage History of exploratory laparotomy History of left salpingo-oophorectomy History of total vaginal hysterectomy (TVH) (~05/2021) with right salpingectomy <Hammad Gaming PA-C - Last Filed: 02/26/24 14:44> Family History Family History: Family History Grandparent Diabetes mellitus Family history of malignant neoplasm of brain Mother Diabetes mellitus Family history of el
--- NOTE | 2024-02-26 14:44 | ECG_ITS ---
Test Date: 2024-02-26 14:48:59 Measurements Intervals [place] Rate: 76 P: 63 AL: 134 QRS: 91 QRSD: 86 T: 32 QT: 347 QTc: 392 Interpretive Statements SINUS RHYTHM RIGHT AXIS DEVIATION INCOMPLETE RIGHT BUNDLE BRANCH BLOCK BASELINE ARTIFACT- I, III, AVR, AVL, AVF, V4-V6 BORDERLINE ECG No previous ECG available for comparison Electronically Signed On 02-26-2024 15:08:08 CDT by Moo Magdaleno D.O.
[2024-02-26 14:55] LABS: Basophils Percent Auto 0.3 % (0.2-1.2); Eosinophils Absolute Auto 0.2 K/mm3 (0-0.3); Eosinophils Percent Auto 1.6 % (0-4.4); Hematocrit 43.2 % (37.0-47.0); Hemoglobin 14.7 g/dL (12.0-15.0); Immature Granulocyte Absolute 0.03 K/mm3 (0.00-0.031); Immature Granulocyte Percent A 0.3 % (0-0.5); Lymphocytes Absolute Auto 1.66 K/mm3 (0.9-3.2); Lymphocytes Percent Auto 16.5 % (18.3-44.2); Mean Corpuscular Hemoglobin 31.5 pg (26-34); Mean Corpuscular Volume 92.7 fl (80-100); Mean Platelet Volume 8.8 fl (7.4-10.4); Monocytes Absolute Auto 0.5 K/mm3 (0.1-0.6); Monocytes Percent Auto 4.9 % (2.6-8.5); Neutrophils Absolute Auto 7.7 K/mm3 (1.3-6.7); Neutrophils Percent Auto 76.4 % (45.5-73.1); Platelet Count Result 324 k/mm3 (150-375); Red Blood Count 4.66 M/mm3 (4.2-5.4); Red Cell Distribution Width 11.9 % (11.5-14.5); White Blood Count 10.1 K/mm3 (4.5-10.0)
[2024-02-26 15:02] LABS: Add Urine Microscopic? NO; Appearance Urine Clear (Clear); Bilirubin Urine Negative (Negative); Blood Urine Negative (Negative); Color Urine Yellow (Yellow); Glucose Urine UA Negative (Negative); Ketones Urine Negative (Negative); Leukocyte Esterase Ur Negative LEU/UL (Negative); Nitrate Urine Negative (Negative); Protein Urine Negative (Negative); Specific Grav Ur 1.004 (1.001-1.035); Urobilinogen Urine 0.2 mg/dL (<2.0); pH Urine 6.5 (5.0-9.0)
[2024-02-26 15:06] LABS: Alanine Aminotransferase 23 U/L (6-35); Albumin Level 4.8 g/dL (3.5-5.1); Alkaline Phosphatase 63 U/L (38-126); Anion Gap 12 mmol/L (4-12); Aspartate Amino Transferase 30 U/L (14-36); Bilirubin,Total 1.3 mg/dL (0.2-1.3); Blood Urea Nitrogen 8 mg/dL (7-17); Calcium 9.1 mg/dL (8.4-10.2); Carbon Dioxide 23 mmol/L (22-30); Chloride 102 mmol/L (98-107); Estimated CRCL calculation 97 ml/min; Estimated Glomerular Filt Rate > 60; Glucose 91 mg/dL (65-110); Potassium 3.8 mmol/L (3.4-5.0); Sodium 137 mmol/L (137-145)
[2024-02-26 15:55] LABS: BEDSIDEPREGUCG Negative
[2024-02-26 16:24] VITALS: BP 109/59; PULSE 64
[2024-02-26 16:27] VITALS: BP 115/74; PULSE 68
[2024-02-26 16:28] VITALS: BP 116/72; PULSE 61
--- NOTE | 2024-02-26 16:31 | PC.NURSE ---
Orthostatic VS negative. Results charted in flowsheet.
[2024-02-26 16:32] LABS: Amphetamine Screen Urine Negative (Negative); Barbiturate Screen Urine Negative (Negative); Benzodiazepines Screen Urine Negative (Negative); Cannabinoid Screen Urine Negative (Negative); Cocaine Screen Urine Negative (Negative); Methadone Screen Urine Negative (Negative); Opiate Screen Urine Negative (Negative); Phencyclidine Screen Urine Negative (Negative)
[2024-02-26] MEDS: SODIUM CHLORIDE 0.9% IV 1,000 ML 999 ML IV CONT (16:46)
--- NOTE | 2024-02-26 17:00 | ECG_ITS ---
Test Date: 2024-02-26 17:20:32 Measurements Intervals [place] Rate: 66 P: 144 OR: 150 QRS: 99 QRSD: 88 T: 162 QT: 400 QTc: 421 Interpretive Statements SINUS RHYTHM WITH OCCASIONAL SUPRAVENTRICULAR PREMATURE COMPLEXES ARM LEADS REVERSED INCOMPLETE RIGHT BUNDLE BRANCH BLOCK BASELINE ARTIFACT- I, II, AVR BORDERLINE ECG Compared to ECG 02/26/2024 14:48:59 NO SIGNIFICANT CHANGE Electronically Signed On 02-26-2024 19:00:49 CDT by Moo Magdaleno D.O.
[2024-02-26] MEDS: MECLIZINE HCL 12.5 MG TABLET PO (17:48)
--- NOTE | 2024-02-26 18:07 | PC.NURSE ---
Pt able to ambulate to the bathroom independently. Gait steady.
[2024-02-26 18:30] VITALS: BP 105/76; PULSE 68; RESP 16; O2SAT 98
== END 2024-02-26 18:58 | disposition home or self-care (01) ==
PROVIDERS: Physician Assistant; Emergency Provider Student in an Organized Health Care Education/Training Program; PCP Family Medicine
DX: R42 Dizziness and giddiness (principal); F41.8 Other specified anxiety disorders; Z87.891 Personal history of nicotine dependence
CPT/HCPCS: 36415; 80053; 80307; 81003; 81025; 83735; 85025; 93005; 96360; 99283; A9270; J7030

== ENCOUNTER 2024-08-01 14:31 | Emergency (ER) | payer OTHER, SELFPAY ==
--- NOTE | ~2024-08-01 | CT_ITS ---
CLINICAL INDICATION: Abdominal pain COMPARISON: 12/22/2023. TECHNIQUE: Multiple contiguous axial images of the abdomen and pelvis were performed following the ad ministration of with 100 mL Omnipaque-350 intravenous contrast The dose-length product (DLP) was 190.03 mGy-cm. Automated exposure control and iterative reconstruction technique were employed. FINDINGS/OBSERVATIONS: Visualized lower thorax: The bilateral lung bases are clear. The heart is of normal size, without pericardial effusion. Liver: The liver enhances homogeneously without enlargement. Gallbladder and biliary system: The gallbladder is only minimally distended, and otherwise unremarkable. Pancreas: The pancreas enhances homogeneously without ductal dilatation. Spleen: The spleen enhances homogeneously and is not enlarged measuring 8 cm in longitudinal dimension. Kidneys: The bilateral kidneys enhance symmetrically without hydronephrosis or renal calculi. Adrenal glands: Unremarkable. Gastrointestinal tract: Moderate fecal stasis. Appendix: The appendix is not definitively visualized. However, no pericecal inflammatory change is identified suggest the presence of acute appendicitis. Vasculature: Unremarkable. Lymph nodes: No pathologically enlarged or morphologically suspicious lymph nodes within the retroperitoneum or at the root of the mesentery. Pelvic structures: The bladder is distended, and otherwise unremarkable. The uterus is surgically absent. The left ovary is not visualized. The right ovary is visualized within the upper right hemipelvis containing benign follicles (decrease d in size from previous examination). Body wall and musculoskeletal: Small fat-containing umbilical hernia. No significant degenerative disease within the lower thoracic or lumbosacral spine. IMPRESSION: No acute findings within the abdomen or pelvis to account for patient's symptoms. Innumerable nonacute findings, as detailed above. Reviewed, dictated and finalized at location A. ICULUM COORDINATOR IMPRESSION: No acute findings within the abdomen or pelvis to account for patient's symptom s. Innumerable nonacute findings, as detailed above.
--- NOTE | ~2024-08-01 | XR_ITS ---
CHEST RADIOGRAPH, PA AND LATERAL CLINICAL HISTORY: right sided chest pain . COMPARISON: 04/29/2023 TECHNIQUE: PA and lateral views of the chest. FINDINGS The cardiomediastinal silhouette is unremarkable. The lungs are clear. Visualized osseous structures and soft tissues are unremarkable. IMPRESSION: No focal infiltrate or effusion. Reviewed, dictated and finalized at location A. ETIC DIRECTOR
--- NOTE | 2024-08-01 14:33 | ECG_ITS ---
Test Date: 2024-08-01 14:37:17 Measurements Intervals [place] Rate: 53 P: 60 ND: 129 QRS: 97 QRSD: 88 T: 35 QT: 389 QTc: 367 Interpretive Statements SINUS BRADYCARDIA RIGHT AXIS DEVIATION INCOMPLETE RIGHT BUNDLE BRANCH BLOCK BASELINE ARTIFACT- I, II, III, AVR, AVL, AVF, V1-V2 BORDERLINE ECG Compared to ECG 02/26/2024 17:20:32 HEART RATE HAS DECREASED Electronically Signed On 08-01-2024 19:44:46 HYDRAULIC ROCKBREAKER OPERATOR by Moo Magdaleno D.O.
--- OUTSIDE RECORDS SUMMARY | 2024-08-01 14:35 | XMS_ITS | Clinical Summary ---
Author Organization [facility] Address [address] [place] [address] Care Team Providers Care Finance Advisor Name Role Phone Moy Lombardi MD Primary Care Provider [phone] Allergies Active Allergy Reactions Criticality Noted Date Comments Latex Hives,Rash Low 05/24/2019 Sertraline Anxiety Low 05/24/2019 Medications metoclopramide 10 MG tablet Take 10 mg by mouth 4 (four) times daily as needed (nausea). Active vitamin, low iron, ( VITAMIN WITH IRON) 27-0.8 MG tablet Take 1 tablet by mouth daily. Active Family History Relation Status Comments Father Alive Mother Alive Social History Tobacco Use Types Packs/Day Years Used Date Smoking Tobacco: Former Smokeless Tobacco: Former Alcohol Use Standard Drinks/Week Comments No 0 (1 standard drink = 0.6 oz pur e alcohol) AUDIT-C Answer Date Recorded Frequency of Alcohol Consumption Never 05/24/2019 Average Number of Drinks Not on file 019 Frequency of Binge Drinking Not on file 07/2018 Comments No Sex and Gender Information Value Date Recorded Sex Assigned at Not on file Legal Sex Female 5:45 PM CHILD CENTER ASSISTANT Gender Identity Not on file Sexual Orientation Not on file Last Filed Vital Signs Vital Sign Reading Time Taken Comments Blood Pressure 116/58 10/01/2020 4:38 PM CDT Pulse 77 10/01/2020 5:39 PM CDT Temperature 36.9 C (98.4 F) 10/01/2020 4:46 PM CDT Respiratory Rate 15 10/01/2020 4:46 PM CDT Oxygen Saturation 98% 10/01/2020 5:39 PM CDT Inhaled Oxygen Concentration - - Weight 49 kg (108 lb 0.4 oz) 05/24/2019 8:05 AM CHILD CENTER ASSISTANT Height 154.9 cm (5' 1 ) 05/24/2019 8:05 AM CHILD CENTER ASSISTANT Body Mass Index 20.41 05/24/2019 8:05 AM CHILD CENTER ASSISTANT Plan of Treatment Health Maintenance Due Date Last Done Comments Cervical Cancer Screening Pap Smear (Age 30 to 64) Every 3 Years 1994 Annual Physical 1997 DTaP, Tdap and Td Vaccines (5 - Tdap) 2005 11/27/1999, 08/05/1997, 05/22/1995, Additional history exists Hepatitis C 2012 Hepatitis B Vaccines (1 of 3 - 19+ 3-dose series) 2013 COVID-19 Vaccine (2023- season) 2024 Influenza Adult (#1) 2024 Cervical Cancer Screening Pap with HPV Testing (Age 30 to 64) Every 5 Years 2024 Cervical Cancer Screening with HPV 2024 HPV Vaccines Completed 06/14/2009, 01/22, 12/14/2008 Meningococcal Vaccine Completed 01/18/2013 Meningococcal B Vaccine Aged Out No l onger eligible based on patient's age to complete this topic Pneumococcal Vaccine: Pediatrics (0 to 5 Years) and At-Risk Patients (6 to 64 Years) Aged Out No longer eligible based on patient's age to complete this topic RSV Immunizations Under 20 Months Aged Out No longer eligible based on patient's age to complete this topic Insurance [employer] Care Teams Finance Advisor Relationship Specialty Start Date End Date Moy Lombardi MD [address] [place] [address] PCP - General FAMILY PRACTICE 05/24/19
--- OUTSIDE RECORDS SUMMARY | 2024-08-01 14:35 | XMS_ITS | Referral Summary ---
Author Organization [facility] at the [facility] Address [address] [place] [address] Care Team Providers Care Food And Drug Research Scientist Name Role Phone Deepika Tian Primary Care Provider [phone] Allergies Active Allergy Reactions Criticality Noted Date Comments Latex Hives,Rash Medium 05/24/2019 Hives Sertraline Anxiety Low 05/24/2019 suicidal thoughts Medications ibuprofen (ADVIL,MOTRIN) 600 mg tablet Take 1 tablet (600 mg total) by mouth every 6 (six) hours as needed for pain 30 tablet 08/04/2022 Active Social History Tobacco Use Types Packs/Day Years Used Date Smoking Tobacco: Never Assessed Personal Safety Answer Date Recorded Getting School Help Needed Not on file 09/06 Comments No Sex and Gender Information Value Date Recorded Sex Assigned at Not on file Legal Sex Female 9:00 AM PLUMBING AND HEATING MECHANIC Gender Identity Not on file Sexual Orientation Not on file Last Filed Vital Signs Vital Sign Reading Time Taken Comments Blood Pressure 97/61 08/04/2022 1:21 PM PLUMBING AND HEATING MECHANIC Pulse 62 08/04/2022 1:21 PM PLUMBING AND HEATING MECHANIC Temperature 36.6 C (97.9 F) 08/04/2022 10:56 AM PLUMBING AND HEATING MECHANIC Respiratory Rate 16 08/04/2022 1:21 PM PLUMBING AND HEATING MECHANIC Oxygen Saturation 99% 08/04/2022 1:21 PM PLUMBING AND HEATING MECHANIC Inhaled Oxygen Concentration - - Weight 47 kg (103 lb 9.9 oz) 08/04/2022 10:56 AM PLUMBING AND HEATING MECHANIC Height 154.9 cm (5' 1 ) 08/04/2022 10:56 AM PLUMBING AND HEATING MECHANIC Body Mass Index 19.58 08/04/2022 10:56 AM PLUMBING AND HEATING MECHANIC Plan of Treatment Not on file Insurance Care Teams Food And Drug Research Scientist Relationship Specialty Start Date End Date Deepika Tian DO PCP - General Family Medicine 08/04/22
--- OUTSIDE RECORDS SUMMARY | 2024-08-01 14:35 | XMS_ITS | Encounter Summary ---
Author Organization [facility] Address [address] [place] [address] Care Team Providers Care Account Director Name Role Phone Moy Lombardi MD Primary Care Provider [phone] Encounter Details Date Type Department Care Team (Late st Contact Info) Description 11/28/2018 Abstract SFL CONVERSION [address] [place] [address] , Generic Conversion, Social History Tobacco Use Types Packs/Day Years Used Date Smoking Tobacco: Never Assessed Comments Unknown Sex and Gender Information Value Date Recorded Sex Assigned at Not on file Legal Sex Female 5:45 PM HEATING SYSTEMS INSTALLER Gender Identity Not on file Sexual Orientation Not on file documented as of this encounter Plan of Treatment Not on file documented as of this encounter Visit Diagnoses Not on filedocumented in this encounter Care Teams Account Director Relationship Specialty Start Date End Date Moy Lombardi MD [address] [place] [address] PCP - General FAMILY PRACTICE 05/24/19 documented as of this encounter
--- OUTSIDE RECORDS SUMMARY | 2024-08-01 14:35 | XMS_ITS | Clinical Summary ---
Author Organization [facility] at the [facility] Office Center Address [address] [place] [address] Care Team Providers Care Dust Handler Name Role Phone Deepika Tian DO Primary Care Provider [phone] Allergies Active Allergy Reactions Criticality Noted Date [...] on file Legal Sex Female 9:00 AM TAILOR APPRENTICE Gender Identity Not on file Sexual Orientation Not on file Last Filed Vital Signs Vital Sign Reading Time Taken Comments Blood Pressure 97/61 08/04/2022 1:21 PM TAILOR APPRENTICE Pulse 62 08/04/2022 1:21 PM TAILOR APPRENTICE Temperature 36.6 C (97.9 F) 08/04/2022 10:56 AM TAILOR APPRENTICE Respiratory Rate 16 08/04/2022 1:21 PM TAILOR APPRENTICE Oxygen Saturation 99% 08/04/2022 1:21 PM TAILOR APPRENTICE Inhaled Oxygen Concentration - - Weight 47 kg (103 lb 9.9 oz) 08/04/2022 10:56 AM TAILOR APPRENTICE Height 154.9 cm (5' 1 ) 08/04/2022 10:56 AM TAILOR APPRENTICE Body Mass Index 19.58 08/04/2022 10:56 AM TAILOR APPRENTICE Plan of Treatment Health Maintenance Due Date Last Done Comments Depression Screening 1994 Hepatitis C Screening 1994 Regular Well Visit/Exam 18-64 2012 Influenza Vaccine (#1) 2024 06/17/2012 DTaP/Tdap/Td Vaccine (8 - Td or Tdap) 01/21/2031 01/21/2021, 12/13/2008, 11/27/1999, Additional history exists Hepatitis B Screening Completed 10/11/1997 , 01/25/1995, 1994 HPV Vaccines Completed 06/14/2009, 01/22, 12/14/2008 Varicella Vaccines Completed 01/19/2013, 03/04/2002 Pneumococcal vaccine <65 Aged Out No longer eligible based on patient's age to complete this topic Insurance ([place]) [address] Care Teams Dust Handler Relationship Specialty Start Date End Date Deepika Tian DO PCP - General Family Medicine 08/04/22
[2024-08-01 14:45] VITALS: BP 102/59; PULSE 102; RESP 18; TEMP 36.4; O2SAT 100
[2024-08-01 15:07] VITALS: BP 124/61; PULSE 61; RESP 16; O2SAT 100
--- OUTSIDE RECORDS SUMMARY | 2024-08-01 15:11 | XMS_ITS | Clinical Summary ---
Author Organization [facility] at the [facility] Center Address [address] [place] [address] Care Team Providers Care Right Of Way Worker Name Role Phone Deepika Tian DO Primary Care Provider [phone] Allergies Active Allergy Reactions Criticality Noted Date [...] on file Legal Sex Female 9:00 AM C ENGINEER Gender Identity Not on file Sexual Orientation Not on file Last Filed Vital Signs Vital Sign Reading Time Taken Comments Blood Pressure 97/61 08/04/2022 1:21 PM C ENGINEER Pulse 62 08/04/2022 1:21 PM C ENGINEER Temperature 36.6 C (97.9 F) 08/04/2022 10:56 AM C ENGINEER Respiratory Rate 16 08/04/2022 1:21 PM C ENGINEER Oxygen Saturation 99% 08/04/2022 1:21 PM C ENGINEER Inhaled Oxygen Concentration - - Weight 47 kg (103 lb 9.9 oz) 08/04/2022 10:56 AM C ENGINEER Height 154.9 cm (5' 1 ) 08/04/2022 10:56 AM C ENGINEER Body Mass Index 19.58 08/04/2022 10:56 AM C ENGINEER Plan of Treatment Health Maintenance Due Date [...] patient's age to complete this topic Insurance ([place]) [address] Care Teams Right Of Way Worker Relationship Specialty Start Date End Date Deepika Tian DO PCP - General Family Medicine 08/04/22
--- OUTSIDE RECORDS SUMMARY | 2024-08-01 15:11 | XMS_ITS | Clinical Summary ---
Author Organization [facility] Address [address] [place] [address] Care Team Providers Care Software Team Leader Name Role Phone Moy Lombardi MD Primary Care Provider [phone] Allergies Active Allergy Reactions Criticality Noted Date [...] on file Legal Sex Female 5:45 PM PULVERIZING AND SIFTING OPERATOR Gender Identity Not on file Sexual Orientation [...] (108 lb 0.4 oz) 05/24/2019 8:05 AM PULVERIZING AND SIFTING OPERATOR Height 154.9 cm (5' 1 ) 05/24/2019 8:05 AM PULVERIZING AND SIFTING OPERATOR Body Mass Index 20.41 05/24/2019 8:05 AM PULVERIZING AND SIFTING OPERATOR Plan of Treatment Health Maintenance Due Date [...] [employer] Care Teams Software Team Leader Relationship Specialty Start Date End Date Moy Lombardi MD [address] [place] [address] PCP - General FAMILY PRACTICE 05/24/19
--- OUTSIDE RECORDS SUMMARY | 2024-08-01 15:11 | XMS_ITS | Referral Summary ---
Author Organization [facility] at the [facility] Office Center Address [address] [place] [address] Care Team Providers Care Director Of Speech Pathology Name Role Phone Deepika Tian Primary Care Provider [phone] Allergies Active Allergy Reactions Criticality Noted Date [...] on file Legal Sex Female 9:00 AM HOT WOUND SPRING PRODUCTION SUPERVISOR Gender Identity Not on file Sexual Orientation Not on file Last Filed Vital Signs Vital Sign Reading Time Taken Comments Blood Pressure 97/61 08/04/2022 1:21 PM HOT WOUND SPRING PRODUCTION SUPERVISOR Pulse 62 08/04/2022 1:21 PM HOT WOUND SPRING PRODUCTION SUPERVISOR Temperature 36.6 C (97.9 F) 08/04/2022 10:56 AM HOT WOUND SPRING PRODUCTION SUPERVISOR Respiratory Rate 16 08/04/2022 1:21 PM HOT WOUND SPRING PRODUCTION SUPERVISOR Oxygen Saturation 99% 08/04/2022 1:21 PM HOT WOUND SPRING PRODUCTION SUPERVISOR Inhaled Oxygen Concentration - - Weight 47 kg (103 lb 9.9 oz) 08/04/2022 10:56 AM HOT WOUND SPRING PRODUCTION SUPERVISOR Height 154.9 cm (5' 1 ) 08/04/2022 10:56 AM HOT WOUND SPRING PRODUCTION SUPERVISOR Body Mass Index 19.58 08/04/2022 10:56 AM HOT WOUND SPRING PRODUCTION SUPERVISOR Plan of Treatment Not on file Insurance Care Teams Director Of Speech Pathology Relationship Specialty Start Date End Date Deepika Tian DO PCP - General Family Medicine 08/04/22
--- OUTSIDE RECORDS SUMMARY | 2024-08-01 15:11 | XMS_ITS | Encounter Summary ---
Author Organization [facility] Address [address] [place] [address] Care Team Providers Care Manager Cardiac Cath Name Role Phone Moy Lombardi MD Primary Care Provider [phone] Encounter Details Date Type Department Care Team (Late st Contact Info) Description 11/28/2018 Abstract SFL CONVERSION [address] [place] [address] , Generic Conversion, Social History Tobacco Use Types Packs/Day Years Used Date Smoking Tobacco: Never Assessed Comments Unknown Sex and Gender Information Value Date Recorded Sex Assigned at Not on file Legal Sex Female 5:45 PM CONCRETE BUSTER OPERATOR Gender Identity Not on file Sexual Orientation Not on file documented as of this encounter Plan of Treatment Not on file documented as of this encounter Visit Diagnoses Not on filedocumented in this encounter Care Teams Manager Cardiac Cath Relationship Specialty Start Date End Date Moy Lombardi MD [address] [place] [address] PCP - General FAMILY PRACTICE 05/24/19 documented as of this encounter
--- NOTE | 2024-08-01 15:19 | ED_ITS ---
HPI - Chest Pain General Chief Complaint: Chest Pain Stated Complaint: chest pain Time Seen by Provider: 08/01/24 15:04 History of Present Illness HPI narrative: 29-year-old female with history of endometriosis, hysterectomy, left oophorectomy, depression presents to emergency department for multiple medical complaints. Patient is reporting abdominal pain for 2 weeks. States the pain is in her epigastrium and periumbilical region as well as left upper quadrant. She states she saw her PCP about this and is scheduled to have an ultrasound on to look for diverticulitis . She states she was advised by her PCP to change her diet which includes decreasing acidic instead receive fluids, alcohol and spicy foods. States this has significantly helped her symptoms. She also states that she is here because she is having chest pain that started last night. She states it is in the right anterior aspect of her chest at times radiates into her shoulder. She describes the sensation as sharp. No aggravating or alleviating factors, no associated shortness of breath, cough or congestion, hemoptysis, fevers, lower extremity edema. No recent surgeries or hospitalizations, history of VTE. She is not on control. Related Data Allergies Allergy/AdvReac Type Severity Reaction Status Date / Time garlic Allergy Unknown HIVES Verified 08/01/24 14:32 latex Allergy Unknown RASH Verified 08/01/24 14:32 sertraline Allergy Unknown suicidal Verified 08/01/24 14:32 thoughts Review of Systems 2 Review of Systems: All systems reviewed & are unremarkable except as noted in HPI and below PMFSH Past Medical History Medical History RUQ pain Pelvic varices Panic disorder without agoraphobia Chronic pelvic pain in female Uterine prolapse Dyspareunia Depression Anxiety Endometriosis Migraine Astigmatism, bilateral UTI (urinary tract infection) IBS (irritable bowel syndrome) Depression with anxiety Surgical History Surgical History History of total vaginal hysterectomy (TVH) (~05/2021) with right salpingectomy History of left salpingo-oophorectomy History of exploratory laparotomy History of dilation and curettage Family History Family History Grandparent Diabetes mellitus Family history of malignant neoplasm of brain Mother Diabetes mellitus Family history of elevated blood lipids Family history of anemia Father Hypertension Other Family history of malignant neoplasm of kidney Family history of pancreatic cancer Social History Social History Years smoked: 5 Smoking status: Former smoker Tobacco type: cigarettes Smoking end date: 06/23/19 Additional smoking assessment comments: QUIT 1 YEAR AGO Alcohol intake: never Substance use: never Substance use type: does not use Lack of Transportation: No Lack of Food: Never True Current Housing: I Have Housing Concerned About Future Housing: No Difficulty Paying Gas/Electric Bills: No Difficulty Paying for Meds: No Currently Unemployed: No Education: High School Diploma/GED Difficulty w/ Childcare or Family Care: No Living arrangements: with family Occupation/Education: occupation 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 HEAD: Normocephalic, atraumatic. EYES: PERRLA and EOMI. ENT: Nares clear, no rhinorrhea or epistaxis. Mucous membranes moist. NECK: Supple. CHEST: Clear to auscultation. No respiratory distress. tenderness to right anterior chest wall with no overlying skin changes or deformity HEART: Regular rate and rhythm. No murmur heard. Normal peripheral pulses. ABDOMEN: Normoactive bowel sounds. Abdomen soft with tenderness in epigastrium, left upper quadrant and periumbilical region. No rebound, guarding or rigidity. No CVA tenderness EXTREMITIES: Normal range of motion. No edema. SKIN: Warm, dry, no rash. NEURO: No focal deficits. Alert and oriented x3 Course Vital Signs Vital signs: Vital Signs Temperature 97.6 F 08/01/24 14:45 Pulse Rate 102 H 08/01/24 14:45 Respiratory Rate 18 08/01/24 14:45 Blood Pressure 102/59 L 08/01/24 14:45 Pulse Oximetry 100 08/01/24 14:45 Oxygen Delivery Room Air 08/01/24 14:45 Temperature 97.6 F 08/01/24 14:45 Pulse Rate 57 L 08/01/24 16:02 Respiratory Rate 16 08/01/24 16:02 Blood Pressure 118/63 08/01/24 16:02 Pulse Oximetry 99 08/01/24 16:02 Oxygen Delivery Room Air 08/01/24 15:06 MDM - Chest Pain MDM Narrative Medical decision making narrative: 29-year-old female presents emergency department for abdominal pain for 2 weeks and chest pain that started yesterday. See HPI for further history. Triage vitals with mild tachycardia 102 which has since resolved without intervention to 61, otherwise unremarkable. Patient is afebrile nontoxic appearing. Exam is significant for tenderness to the periumbilical region, left upper quadrant and epigastrium. Patient also has reproducible chest wall tenderness palpation. Will obtain lab work chest x-ray EKG as well as CT abdomen pelvis, although presentation most consistent with costochondritis and gastritis. Lab work shows no leukocytosis or anemia. Chemistries are unremarkable other than mild elevation bilirubin 1.6, remainder velocities are unremarkable. Lipase normal. UA without infection. negative. Viral swabs negative. Chest x-ray shows no acute cardiopulmonary findings. EKG shows sinus bradycardia rate of 53 ppm, normal VA interval, normal QRS duration, normal QTC, no ischemic changes. Troponin undetectable. I did consider PE, however patient has not been tachycardic since triage, no hypoxia, she does not have risk factors. CT of her abdomen pelvis shows no acute findings. patient updated on results. She received Zofran, Pepcid and Toradol with improvement. On re-evaluation patient resting comfortably in exam bed reading a book. Again, suspect costochondritis and gastritis. Will refrain from NSAIDs given concern for gastritis. Pepcid and Tylenol sent to pharmacy. Discussed diet changes and follow-up with PCP. She is agreeable to plan verbalized understanding. Discharged in stable condition. Lab Data 08/01/24 15:09 08/01/24 15:09 Labs: Lab Results 08/01/24 08/01/24 Range/Units 15: 15:50 WBC 7.7 (4.5-10.0) K/mm3 RBC 4.63 (4.2-5.4) M/mm3 Hgb 14.6 (12.0-15.0) g/dL Hct 43.3 (37.0-47.0) % MCV 93.5 (80-100) fl MCH 31.5 (26-34) pg MCHC 33.7 (32-36) g/dl RDW 11.9 (11.5-14.5) % Plt Count 331 (150-375) k/mm3 MPV 9.1 (7.4-10.4) fl Immature Gran % (Auto) 0.1 (0-0.5) % Neut % (Auto) 64.3 (45.5-73.1) % Lymph % (Auto) 26.4 (18.3-44.2) % [place] % (Auto) 6.1 (2.6-8.5) % Eos % (Auto) 2.4 (0-4.4) % Baso % (Auto) 0.7 (0.2-1.2) % Lymph # (Auto) 2.02 (0.9-3.2) K/mm3 [place] # (Auto) 0.5 (0.1-0.6) K/mm3 Eos # (Auto) 0.2 (0-0.3) K/mm3 Baso # (Auto) 0.1 (0.0-0.1) K/mm3 Abs Immat Gran (auto) 0.01 (0.00-0.031) K/mm3 Absolute Neuts (auto) 4.9 (1.3-6.7) K/mm3 Absolute Nucleated RBC 0.000 (0.0-0.012) K/mm3 Nucleated RBC % 0.0 (0.0-0.2) % Sodium 141 (137-145) mmol/L Potassium 3.9 (3.4-5.0) mmol/L Chloride 104 (98-107) mmol/L Carbon Dioxide 26 (22-30) mmol/L Anion Gap 11 (4-12) mmol/L BUN 8 (7-17) mg/dL Creatinine 0.63 L (0.7-1.0) mg/dL Estim Creat Clear Calc 84 ml/min Estimated GFR > 60 (59 - ) Glucose 88 (65-110) mg/dL Calcium 9.7 (8.4-10.2) mg/dL Total Bilirubin 1.6 H (0.2-1.3) mg/dL AST 25 (14-36) U/L ALT 18 (6-35) U/L Alkaline Phosphatase 58 (38-126) U/L Troponin I < 0.012 (0.000-0.034) ng/mL Total Protein 8.0 (6.3-8.2) g/dL Albumin 4.8 (3.5-5.1) g/dL Lipase 70 (23-300) U/L Urine Color Yellow (Yellow) Urine Appearance Clear (Clear) Urine pH 5.5 (5.0-9.0) Ur Specific [place] 1.009 (1.001-1.035) Urine Protein Negative (Negative) mg/dL Urine Glucose (UA) Negative (Negative) mg/dL Urine Ketones Negative (Negative) mg/dL Ur Blood (Man) Trace (Negative) Urine Nitrate Negative (Negative) Urine Bilirubin Negative (Negative) Urine Urobilinogen 0.2 (<2.0) mg/dL Leukocyte Esterase Rfl Negative (Negative) TONNY/UL Urine RBC 0-2 (0-2) /hpf Urine WBC 0-5 (0-3) /hpf Ur Squamous Epith Cells None seen (Few) /hpf Urine Bacteria None seen /hpf Urine Casts 0-2 POC Urine HCG, Qual Negative (Negative) Influenza A (RT-PCR) Negative (Negative) Influenza B (RT-PCR) Negative (Negative) RSV (RT-PCR) Negative (Negative) SARS-CoV-2 RNA (RT-PCR) Negative (Negative) Discharge Plan Discharge Clinical Impression: Acute costochondritis, Abdominal pain, epigastric Patient Disposition: Home, Self-Care Condition: Stable Instructions: Antibiotic Form, Gastritis (DC), Diet for Stomach Ulcers and Gastritis (ED), Costochondritis (DC), Abdominal Pain (ED) Additional Instructions: Take medications as directed. Follow-up with primary care provider continue eating a bland diet and refraining from alcohol, ibuprofen /Advil/ Motrin, Aleve/naproxen, acidic or spicy foods. Return to the emergency department if you develop new or worsening symptoms. Patient Language: Thai Prescriptions: New famotidine 20 mg tablet 20 mg PO DAILY Qty: 14 0RF acetaminophen 500 mg capsule 500 mg PO Q6H PRN (Reason: pain) Qty: 14 0RF No Action meclizine 12.5 mg tablet 12.5 mg PO TID PRN (Reason: dizziness) Qty: 60 0RF dicyclomine 20 mg tablet 20 mg PO QID PRN (Reason: abdominal pain) Qty: 60 0RF Follow-up/Referrals: Deepika Tian DO [Primary Care Provider] -
[2024-08-01 15:25] LABS: Basophils Absolute Auto 0.1 K/mm3 (0.0-0.1); Basophils Percent Auto 0.7 % (0.2-1.2); Eosinophils Absolute Auto 0.2 K/mm3 (0-0.3); Eosinophils Percent Auto 2.4 % (0-4.4); Hematocrit 43.3 % (37.0-47.0); Hemoglobin 14.6 g/dL (12.0-15.0); Immature Granulocyte Absolute 0.01 K/mm3 (0.00-0.031); Immature Granulocyte Percent A 0.1 % (0-0.5); Lymphocytes Absolute Auto 2.02 K/mm3 (0.9-3.2); Lymphocytes Percent Auto 26.4 % (18.3-44.2); Mean Corpuscular HGB Conc 33.7 g/dl (32-36); Mean Corpuscular Hemoglobin 31.5 pg (26-34); Mean Corpuscular Volume 93.5 fl (80-100); Mean Platelet Volume 9.1 fl (7.4-10.4); Monocytes Absolute Auto 0.5 K/mm3 (0.1-0.6); Monocytes Percent Auto 6.1 % (2.6-8.5); Neutrophils Absolute Auto 4.9 K/mm3 (1.3-6.7); Neutrophils Percent Auto 64.3 % (45.5-73.1); Platelet Count Result 331 k/mm3 (150-375); Red Blood Count 4.63 M/mm3 (4.2-5.4); Red Cell Distribution Width 11.9 % (11.5-14.5); White Blood Count 7.7 K/mm3 (4.5-10.0)
[2024-08-01 15:31] LABS: Add Urine Microscopic? YES; Appearance Urine Clear (Clear); Bacteria Urine None Seen /hpf; Bilirubin Urine Negative (Negative); Blood Urine Trace (Negative); Color Urine Yellow (Yellow); Glucose Urine UA Negative (Negative); Ketones Urine Negative (Negative); Leukocyte Esterase Ur Negative LEU/UL (Negative); Nitrate Urine Negative (Negative); Non Pathogenic Casts 0-2; Protein Urine Negative (Negative); RBC Urine 0-2 /hpf (0-2); Specific Grav Ur 1.009 (1.001-1.035); Squamous Epithelial Cell Urine None Seen /hpf (Few); Urobilinogen Urine 0.2 mg/dL (<2.0); WBC Urine 0-5 /hpf (0-3); pH Urine 5.5 (5.0-9.0)
[2024-08-01 15:42] LABS: Alanine Aminotransferase 18 U/L (6-35); Albumin Level 4.8 g/dL (3.5-5.1); Alkaline Phosphatase 58 U/L (38-126); Anion Gap 11 mmol/L (4-12); Aspartate Amino Transferase 25 U/L (14-36); Bilirubin,Total 1.6 mg/dL (0.2-1.3); Blood Urea Nitrogen 8 mg/dL (7-17); Calcium 9.7 mg/dL (8.4-10.2); Carbon Dioxide 26 mmol/L (22-30); Chloride 104 mmol/L (98-107); Estimated CRCL calculation 84 ml/min; Estimated Glomerular Filt Rate > 60; Glucose 88 mg/dL (65-110); Lipase 70 U/L (23-300); Potassium 3.9 mmol/L (3.4-5.0); Sodium 141 mmol/L (137-145)
[2024-08-01 15:52] LABS: BEDSIDEPREGUCG Negative (Negative)
[2024-08-01 16:00] LABS: Troponin I < 0.012 ng/mL (0.000-0.034)
[2024-08-01 16:01] LABS: Influenza A QL RT-PCR Negative (Negative); Influenza B QL RT-PCR Negative (Negative); RSV RNA, RT-PCR Negative (Negative); SARS-CoV-2 RNA PCR Negative (Negative)
[2024-08-01 16:02] VITALS: BP 118/63; PULSE 57; RESP 16; O2SAT 99
[2024-08-01] MEDS: ONDANSETRON INJ 4 MG/2 ML VIAL IV PUSH (16:02)
[2024-08-01] MEDS: FAMOTIDINE 20 MG/2 ML VIAL IV PUSH (16:02)
[2024-08-01] MEDS: KETOROLAC 15 MG/ML VIAL (*BKC) IV PUSH (16:02)
[2024-08-01 17:03] VITALS: BP 115/55; PULSE 60; RESP 16; O2SAT 100
== END 2024-08-01 17:11 | disposition home or self-care (01) ==
PROVIDERS: Emergency Medicine; Emergency Provider Physician Assistant; PCP Family Medicine
DX: M94.0 Chondrocostal junction syndrome [Tietze] (principal); R10.13 Epigastric pain; Z20.822 Contact with and (suspected) exposure to COVID-19; K58.9 Irritable bowel syndrome, unspecified; Z87.891 Personal history of nicotine dependence; Z87.440 Personal history of urinary (tract) infections; Z90.710 Acquired absence of both cervix and uterus; Z90.79 Acquired absence of other genital organ(s); Z90.721 Acquired absence of ovaries, unilateral
CPT/HCPCS: 36415; 71046; 74177; 80053; 81001; 81025; 83690; 84484; 85025; 87637; 93005; 96374; 96375; 99284; J1885; J2405; Q9967

== ENCOUNTER 2024-08-10 14:51 | Outpatient (CLI) | payer OTHER, SELFPAY ==
--- NOTE | ~2024-08-10 | US_ITS ---
EXAMINATION: US abdomen complete DATE: 08/10/2024 16:01 INDICATION: R10.9 - Unspecified abdominal pain TECHNIQUE: Multiple grayscale and Doppler ultrasound images of the abdomen were obtained. COMPARISON: CT abdomen pelvis 08/01/2024. FINDINGS: The visualized portions of the pancreas are normal. The liver is normal with normal echogen icity and echotexture. No surface nodularity. Normal hepatopetal flow in the main portal vein. The ga llbladder is normal with no abnormal wall thickening, pericholecystic fluid or stones. The common oty e duct measures 3 mm. There was no sonographic Sage sign. The visualized portions of the aorta and inferior vena cava are normal. The right kidney measures 9.3 x 4.0 x 5.0 cm. The left kidney measures 9.7 x 4.6 x 4.0 cm. The kidney s demonstrate normal parenchymal echogenicity. There is no hydronephrosis. The spleen is normal in ap pearance and measures 8.6 cm. IMPRESSION: Normal abdominal ultrasound findings. Reviewed, dictated and finalized at location K. HER PARTS MATCHER
--- OUTSIDE RECORDS SUMMARY | 2024-08-10 14:54 | XMS_ITS | Referral Summary ---
Author Organization [facility] at the [facility] Office Center Address [address] [place] [address] Care Team Providers Care Environmental Monitoring Technician Name Role Phone Deepika Tian Primary Care Provider [phone] Allergies Active Allergy Reactions Criticality Noted Date [...] on file Legal Sex Female 9:00 AM OPERATING ROOM SPECIALIST Gender Identity Not on file Sexual Orientation Not on file Last Filed Vital Signs Vital Sign Reading Time Taken Comments Blood Pressure 97/61 08/04/2022 1:21 PM OPERATING ROOM SPECIALIST Pulse 62 08/04/2022 1:21 PM OPERATING ROOM SPECIALIST Temperature 36.6 C (97.9 F) 08/04/2022 10:56 AM OPERATING ROOM SPECIALIST Respiratory Rate 16 08/04/2022 1:21 PM OPERATING ROOM SPECIALIST Oxygen Saturation 99% 08/04/2022 1:21 PM OPERATING ROOM SPECIALIST Inhaled Oxygen Concentration - - Weight 47 kg (103 lb 9.9 oz) 08/04/2022 10:56 AM OPERATING ROOM SPECIALIST Height 154.9 cm (5' 1 ) 08/04/2022 10:56 AM OPERATING ROOM SPECIALIST Body Mass Index 19.58 08/04/2022 10:56 AM OPERATING ROOM SPECIALIST Plan of Treatment Not on file Insurance Care Teams Environmental Monitoring Technician Relationship Specialty Start Date End Date Deepika Tian DO PCP - General Family Medicine 08/04/22
--- OUTSIDE RECORDS SUMMARY | 2024-08-10 14:54 | XMS_ITS | Encounter Summary ---
Author Organization [facility] Address [address] [place] [address] Care Team Providers Care Back Order Clerk Name Role Phone Moy Lombardi MD Primary Care Provider [phone] Encounter Details Date Type Department Care Team (Late st Contact Info) Description 11/28/2018 Abstract SFL CONVERSION [address] [place] [address] , Generic Conversion, Social History Tobacco Use Types Packs/Day Years Used Date Smoking Tobacco: Never Assessed Comments Unknown Sex and Gender Information Value Date Recorded Sex Assigned at Not on file Legal Sex Female 5:45 PM CORRECTION OFFICER HEAD Gender Identity Not on file Sexual Orientation Not on file documented as of this encounter Plan of Treatment Not on file documented as of this encounter Visit Diagnoses Not on filedocumented in this encounter Care Teams Back Order Clerk Relationship Specialty Start Date End Date Moy Lombardi MD [address] [place] [address] PCP - General FAMILY PRACTICE 05/24/19 documented as of this encounter
--- OUTSIDE RECORDS SUMMARY | 2024-08-10 14:54 | XMS_ITS | Clinical Summary ---
Author Organization [facility] at the [facility] Office Center Address [address] [place] [address] Care Team Providers Care Chainstitch Seat Joiner Name Role Phone Deepika Tian DO Primary Care Provider [phone] Allergies Active Allergy Reactions Criticality Noted Date [...] on file Legal Sex Female 9:00 AM PROP CUTTER Gender Identity Not on file Sexual Orientation Not on file Last Filed Vital Signs Vital Sign Reading Time Taken Comments Blood Pressure 97/61 08/04/2022 1:21 PM PROP CUTTER Pulse 62 08/04/2022 1:21 PM PROP CUTTER Temperature 36.6 C (97.9 F) 08/04/2022 10:56 AM PROP CUTTER Respiratory Rate 16 08/04/2022 1:21 PM PROP CUTTER Oxygen Saturation 99% 08/04/2022 1:21 PM PROP CUTTER Inhaled Oxygen Concentration - - Weight 47 kg (103 lb 9.9 oz) 08/04/2022 10:56 AM PROP CUTTER Height 154.9 cm (5' 1 ) 08/04/2022 10:56 AM PROP CUTTER Body Mass Index 19.58 08/04/2022 10:56 AM PROP CUTTER Plan of Treatment Health Maintenance Due Date [...] patient's age to complete this topic Insurance ([place]) [address] Care Teams Chainstitch Seat Joiner Relationship Specialty Start Date End Date Deepika Tian DO PCP - General Family Medicine 08/04/22
--- OUTSIDE RECORDS SUMMARY | 2024-08-10 14:54 | XMS_ITS | Clinical Summary ---
Author Organization [facility] Address [address] [place] [address] Care Team Providers Care Senior Executive Assistant Name Role Phone Moy Lombardi MD Primary Care Provider [phone] Allergies Active Allergy Reactions Criticality Noted Date [...] on file Legal Sex Female 5:45 PM HAT CHECKER Gender Identity Not on file Sexual Orientation [...] (108 lb 0.4 oz) 05/24/2019 8:05 AM HAT CHECKER Height 154.9 cm (5' 1 ) 05/24/2019 8:05 AM HAT CHECKER Body Mass Index 20.41 05/24/2019 8:05 AM HAT CHECKER Plan of Treatment Health Maintenance Due Date [...] MEDICAL REIMBURSEMENTS OF LOUIE LEWIS Care Teams Senior Executive Assistant Relationship Specialty Start Date End Date Moy Lombardi MD [address] [place] [address] PCP - General FAMILY PRACTICE 05/24/19
== END 2024-08-10 14:52 | disposition home or self-care (01) ==
LOC: ANHIMG 14:52
PROVIDERS: PCP Family Medicine; Visit Provider Nurse Practitioner
DX: R10.9 Unspecified abdominal pain (principal)
CPT/HCPCS: 76700

== ENCOUNTER 2024-09-03 09:57 | Outpatient (CLI) | payer OTHER, SELFPAY ==
--- NOTE | ~2024-09-03 | NM_ITS ---
EXAMINATION: NM hepatobiliary wo pharm DATE: 09/03/2024 16:09 INDICATION: Right upper quadrant abdominal pain. COMPARISON: CT 08/01/2024 TECHNIQUE: 4.9 mCi Tc-99m mebrofenin (Choletec) was administered intravenously. Scintigraphic images of the abdomen were obtained for one hour. Then, the patient drank 8 oz Ensure, and imaging was cont inued for 60 minutes. FINDINGS: There is normal clearance of radiotracer from the blood pool. There is homogeneous tracer u ptake by the liver. Activity progresses to the bowel and gallbladder. Gallbladder ejection fraction (GBEF) was 70%. Note that with this technique, normal GBEF >= 33%. IMPRESSION: 1. Normal hepatobiliary scintigraphy. Reviewed, dictated and finalized at location L.
--- OUTSIDE RECORDS SUMMARY | 2024-09-03 10:39 | XMS_ITS | Referral Summary ---
Author Organization [facility] at the [facility] Office Center Address [address] [place] [address] Care Team Providers Care Coder Name Role Phone Deeipka Tian Primary Care Provider [phone] Allergies Active Allergy Reactions Criticality Noted Date [...] on file Legal Sex Female 9:00 AM WARP WORKER Gender Identity Not on file Sexual Orientation Not on file Last Filed Vital Signs Vital Sign Reading Time Taken Comments Blood Pressure 97/61 08/04/2022 1:21 PM WARP WORKER Pulse 62 08/04/2022 1:21 PM WARP WORKER Temperature 36.6 C (97.9 F) 08/04/2022 10:56 AM WARP WORKER Respiratory Rate 16 08/04/2022 1:21 PM WARP WORKER Oxygen Saturation 99% 08/04/2022 1:21 PM WARP WORKER Inhaled Oxygen Concentration - - Weight 47 kg (103 lb 9.9 oz) 08/04/2022 10:56 AM WARP WORKER Height 154.9 cm (5' 1 ) 08/04/2022 10:56 AM WARP WORKER Body Mass Index 19.58 08/04/2022 10:56 AM WARP WORKER Plan of Treatment Not on file Insurance Care Teams Coder Relationship Specialty Start Date End Date Deepika Tian DO PCP - General Family Medicine 08/04/22
--- OUTSIDE RECORDS SUMMARY | 2024-09-03 10:39 | XMS_ITS | Clinical Summary ---
Author Organization [facility] Address [address] [place] [address] Care Team Providers Care Nurses Educator Name Role Phone Moy Lombardi MD Primary Care Provider [phone] Allergies Active Allergy Reactions Criticality Noted Date [...] on file Legal Sex Female 5:45 PM HEALTHCARE SOCIAL WORKER Gender Identity Not on file Sexual [...] (108 lb 0.4 oz) 05/24/2019 8:05 AM HEALTHCARE SOCIAL WORKER Height 154.9 cm (5' 1 ) 05/24/2019 8:05 AM HEALTHCARE SOCIAL WORKER Body Mass Index 20.41 05/24/2019 8:05 AM HEALTHCARE SOCIAL WORKER Plan of Treatment Health Maintenance Due Date [...] MEDICAL REIMBURSEMENTS OF LOUIE LEWIS Care Teams Nurses Educator Relationship Specialty Start Date End Date Moy Lombardi MD [address] [place] [address] PCP - General FAMILY PRACTICE 05/24/19
--- OUTSIDE RECORDS SUMMARY | 2024-09-03 10:39 | XMS_ITS | Encounter Summary ---
Author Organization [facility] Address [address] [place] [address] Care Team Providers Care Auto Hiker Name Role Phone Moy Lombardi MD Primary Care Provider [phone] Encounter Details Date Type Department Care Team (Late st Contact Info) Description 11/28/2018 Abstract SFL CONVERSION [address] [place] [address] , Generic Conversion, Social History Tobacco Use Types Packs/Day Years Used Date Smoking Tobacco: Never Assessed Comments Unknown Sex and Gender Information Value Date Recorded Sex Assigned at Not on file Legal Sex Female 5:45 PM YOUTH DIRECTOR Gender Identity Not on file Sexual Orientation Not on file documented as of this encounter Plan of Treatment Not on file documented as of this encounter Visit Diagnoses Not on filedocumented in this encounter Care Teams Auto Hiker Relationship Specialty Start Date End Date Moy Lombardi MD [address] [place] [address] PCP - General FAMILY PRACTICE 05/24/19 documented as of this encounter
--- OUTSIDE RECORDS SUMMARY | 2024-09-03 10:39 | XMS_ITS | Clinical Summary ---
Author Organization [facility] at the [facility] Office Center Address [address] [place] [address] Care Team Providers Care Orthodontic Laboratory Technician Name Role Phone Deepika Tian DO Primary Care Provider [phone] Allergies Active Allergy Reactions Criticality Noted Date [...] on file Legal Sex Female 9:00 AM SCREW CUTTER Gender Identity Not on file Sexual Orientation Not on file Last Filed Vital Signs Vital Sign Reading Time Taken Comments Blood Pressure 97/61 08/04/2022 1:21 PM SCREW CUTTER Pulse 62 08/04/2022 1:21 PM SCREW CUTTER Temperature 36.6 C (97.9 F) 08/04/2022 10:56 AM SCREW CUTTER Respiratory Rate 16 08/04/2022 1:21 PM SCREW CUTTER Oxygen Saturation 99% 08/04/2022 1:21 PM SCREW CUTTER Inhaled Oxygen Concentration - - Weight 47 kg (103 lb 9.9 oz) 08/04/2022 10:56 AM SCREW CUTTER Height 154.9 cm (5' 1 ) 08/04/2022 10:56 AM SCREW CUTTER Body Mass Index 19.58 08/04/2022 10:56 AM SCREW CUTTER Plan of Treatment Health Maintenance Due [...] patient's age to complete this topic Insurance ([place]) [address] Care Teams Orthodontic Laboratory Technician Relationship Specialty Start Date End Date Deepika Tian DO PCP - General Family Medicine 08/04/22
--- OUTSIDE RECORDS SUMMARY | 2024-09-03 10:40 | XMS_ITS ---
Author Organization On license of [facility] Address [address] [place] [address] Care Team Providers Care Converter Operator Name Role Phone Quigley, Lorenzo Primary Care Provider [phone] REASON FOR VISIT PRAPARE Assessment Social History PRAPARE Question Answer Notes Date Completed/Updated: 08/11/2024 What is your current housing situation? I have h ousing Are you worried about losing your housing? No What is the highest level of school that you have finished? 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 Check all that apply I do not have problems meeting my needs Has lack of transportation k ept you from medical appointments, meetings, work or from getting things needed for daily living? No How often do you see or talk to people that you care about and feel close to? (For example: talking to friends on the phone, visiting friends or family, going to episcopal or club meetings) More than 5 times a week How stressed are you? Stress is when someone feels tense, nervous, anxious, or can\t sleep at night because their mind is troubled Somewhat In the past year have you sp ent more than 2 nights in a row in a shelter, fci, custodial center, or juvenile correctional facility? No Do you feel physically and e motionally safe where you currently live? Yes In the past year, have you b een afraid of your partner or ex-partner? No PRAPARE Score: 5 Encounters Encounter Location Date Provider Diagnosis [address] [place] [address] 08/12/2024 Lorenzo Quigley Plan Of Treatment No Information Progress Notes * Molly RUIZhDOB:1995 (29 yo F)Acc No.[id number]:08/12/2024 Patient: Christina PONCE :1995 A ge:29 Y S ex:Female Address:[address] [place] [id number] Subjective: * Chief Complaints: * P PRABHAKARRE Assessment * Medical History: * Surgical History: * Hospitalization/Major Diagno stic Procedure: * Social History: S ocial Determinants: P FREDDY D ate Completed/Updated: 0 08/11/2024 W hat is your current housing situation? I have housing A re you worried about losing your housing??No W hat is the highest level of school that you have finished? 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 Check all that apply I do not have problems meeting my needs H as lack of transportation kept you from medical appointments, meetings, work or from getting things needed for daily living? N o H ow often do you see or talk to people that you care about and feel close to? (For example: talking to friends on the phone, visiting friends or family, going to episcopal or club meetings) M ore than 5 times a week H ow stressed are you? Stress is when someone feels tense, nervous, anxious, or can\t sleep at night because their mind is troubled S omewhat I n the past year have you spent more than 2 nights in a row in a shelter, fci, custodial center, or juvenile correctional facility? N o D o you feel physically and emotionally safe where you currently live? Y es I n the past year, have you been afraid of your partner or ex-partner? N o P RAPARE Score: 5 * Medications: Objective: * Vitals: * Physical Examination: Assessment: Plan: * Treatment: * Procedure Codes: * true * Date: Generated for Juwan toledo/Richar/Rodney on: 0 09/03/2024 10:40 AM CDT
--- OUTSIDE RECORDS SUMMARY | 2024-09-03 10:40 | XMS_ITS ---
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 smoke 1-2 cigarettes daily, started around [id number], stopped around 2022, never smoked heavier than 1-2 cigarettes daily -Alcohol - Rare use, at most 1-2 drinks, usually 1 cup of wine - never heavy use -Marijuana - Currently uses marijuana, also helps with endometriosis pain, smokes 1-2 hits daily (vape pens), has been smoking for 2-3 years -Other Substances - Denies current or previous other substance use Medical concerns or hospitalizations: endometriosis, stomach issues (recently referred to GI), IBS Therapy: Started therapy yesterday - next appointment in about 3 weeks Labs: LABS MONITORED BY PCP - - - - - - - - - - - - - - - - - - - - - - - - - - - - - - - - - - - - - - - - - - - - - - - - - - - - - - - - - - - - - - - - - - - - - - - - - - - - - - - - - - - Personal Psychiatric History: Psychiatric diagnoses: anxiety and depression (PCP diagnosis), therapist (anxiety, depression, PTSD) - - - - - - - - - - - - - - - - - - - - - - - - - - - - - - - - - - - - - - - - - - - - - - - - - - - - - - - - - - - - - - - - - - - - - - - - - - - - - - - - - - - Personal Social History: Any developmental issues: Denies Educational History: Some college 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, 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 service: Denies Marital status: Engaged Spouse's occupation: die maker apprentice Children (name, age, who they live with): 2 children, 8 and 3 - - - - - - - - - - - - - - - - - - - - - - - - - - - - - - - - - - - - - - - - - - - - - - - - - - - - - - - - - - - - - - - - - - - - - - - - - - - - - - - - - - - Family Psychiatric History: Psychiatric diagnoses: son (ADHD, ODD) - - - - - - - - - - - - - - - - - - - - - - - - - - - - - - - - - - - - - - - - - - - - - - - - - - - - - - - - - - - - - - - - - - - - - - - - - - - - - - - - - - - Personal Medical History: see above Also, have you ever had a head injury? Concussion at age 5-6 (playing [place]) Have you ever had an EEG or CT scan of you head? Denies - - - - - - - - - - - - - - - - - - - - - - - - - - - - - - - - - - - - - - - - - - - - - - - - - - - - - - - - - - - - - - - - - - - - - - - - - - - - - - - - - - - Personal Surgical History: laparoscopy X2 (endometriosis), hysterectomy in 2020, D&C in , left ovary removed in 2019 (varicose veins) - - - - - - - - - - - - - - - - - - - - - - - - - - - - - - - - - - - - - - - - - - - - - - - - - - - - - - - - - - - - - - - - - - - - - - - - - - - - - - - - - - - Family Medical/Surgical History: Mother: HTN, HLD, prediabetes Father: HTN, fluid around his heart last year Siblings: Maternal grandmother: Maternal grandfather: brain cancer Paternal grandmother: dementia Paternal grandfather: prostate cancer, DM. G AD-7 Screenin. Feeling nervous, anxious, or on edge : , Nearly every day-3. 2. Not being able to stop or control worrying : , Nearly every day-3. 3. Worrying too much about different things : , Nearly every day-3. 4. Trouble sleeping/relaxing : , Several days-1. 5. Being so restless that it is hard to sit still : , Not at all-0. 6. Becoming easily annoyed or irritable : , More than half the days-2. 7. Feeling afraid, as if something awful might happen : , Several days-1. KALE-7 Score T otal score 1 3 : D epression Screening: PHQ-9 L ittle interest or pleasure in doing things?Nearly every day F eeling down, depressed, or hopeless M ore than half the days T rouble falling or staying asleep, or sleeping too much N early every day F eeling tired or having little energy S P oor appetite or overeating M ore than half the days F eeling bad about yourself or that you are a failure, or have let yourself or your family down S T rouble concentrating on things, such as reading the newspaper or watching television S M oving or speaking so slowly that other people could have noticed; or the opposite, being so fidgety or restless that you have been moving around a lot more than usual S T houghts that you would be better off or of hurting yourself in some way N ot at all T otal Score 1 4 I nterpretation M oderate Depression Intervention D epression Screening Findings P ositive F ollow-Up for Depression N o Referral necessary, patient involved in behavioral health treatment . S creening: [place] Suicide Severity Rating Scale (LF) D o you want to initiate with S creener form 1 . Wish to be : Have you wished you were or wished you could go to sleep and not wake up? N o 2 . Suicidal Thoughts: Have you actually had any thoughts of killing yourself? N o 6 . Suicide Behavior Question: Have you ever done anything,started to do anything, or prepared to end your life? N o I nterpretation: L ow Risk A dult ADHD Self-Report Scale: Symptom Checklist H ave trouble wrapping up final details of project? S ometimes . D ifficulty getting things in order? O ften . P roblems remembering appointments? V fabrizio Often . D o you avoid or delay getting tasks started??Very Often . F idget or squirm? N ever . F eel over active or compelled or driven to do things? R haroldo . H ow often make careless mistakes? S ometimes . D ifficulty keeping attention when bored? V fabrizio Often . D ifficulty concentrating on what people say??Often . M isplace things or difficulty finding things at home or work? V fabrizio Often . H ow often distracted by noise? V fabrizio Often . H ow often leave seat when expected to remain seated? N ever . H ow often feel restless or fidgety? S ometimes . H ave difficulty unwinding or relaxing? V fabrizio Often . H ow often find self talking too much in social situation? V fabrizio Often . F ind self finishing sentences of others? V fabrizio Often . H ow often do you have difficulty waiting your turn in situations when turn taking is required? N ever H ow often do you interupt others when they are busy? V fabrizio Often . I nterim History: Emergency room visit N o. Was hospitalized N o. C SSRS Interpretation and Follow Up Plan: CSSRS Interpretation and Follow Up Plan C SSRS Screen documented using SF Y es R isk Disposition from SF L ow - No Follow Up Plan Required F ollow Up Plan N o Follow Up Plan required at this time. * ROS: P sych ROS: Constitutional A ll systems negative unless indicated otherwise.. P sych D enies AH/VH and delusions, Denies SI/HI. * PSYCH ROS2: mood swings D enies mood lability. I nattention E ndorses attention deficits. C ompulsive behavior D enies compusive/impulsive behaviors. D epression E ndorses. M tariq E ndorses s ymptoms of rehan. A ppetite N ormal. C oncentration E ndorses c oncentration deficits. S ubstance use E ndorses,Cannabis,Caffeine. P anic attacks E ndorses. A nxiety/Worry E ndorses. I rritability E ndorses. S elf-Harm D enies. S leep D enies sleep difficulties. C kala S [facility] for details. * Medical History: * Surgical History: h ysterectomy 2020Hysterectomy 06/01/2021ilatation and curettage [id number] OLONOSCOPY 2022 * Hospitalization/Major Diagno stic Procedure: N o Hospitalization History. * Family History: F ather: alive. M other: alive. 1 brother(s) . 1 son(s) , 1 daughter(s) . . * Social History: P rimary Social History: L iving Arrangement L iving Arrangement: D ependent Living L iving with: O ther: I s this a supportive environment? 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 0 07/01/2017 W hen did you stop smoking? 0 08/25/2023 H ow long has it been since you last smoked??6-12 months M iscellaneous: M ethod of learning P referred method of learning: R eading,Discussion,Demonstration,Hearing * Medications: T akingSlynd 4 MG Tablet 1 tablet Orally Once a day Medication List reviewed and reconciled with the patientTaking Slynd 4 MG Tablet 1 tablet Orally Once a day Medication List reviewed and reconciled with the patient * Allergies: S erlatine: Suicidal thoughtsGarlic: Hives and itching.Latex: Hives and itching.Sertraline: Side Effects - Criticality Highno[Allergies Verified] Objective: * Vitals: I nitials: sle, PHQ9:8. * Examination: G eneral Examination: GENERAL APPEARANCE: U nable to perform physical examination - patient verbalizes no concerns during telephone communication. M ental Status Exam: SENSORIUM AND COGNITION A lert, Oriented to Person, Oriented to Place, Oriented to Time, Oriented to Situation. ATTENTION AND CONCENTRATION M ildly impaired attention/concentration. APPEARANCE U nable to assess due to telephone visit. ATTITUDE AND BEHAVIOR C ooperative. MEMORY G rossly intact. EYE CONTACT U nable to assess due to telephone visit. AFFECT U nable to assess due to telephone visit - inferred to be mildly anxious/dysthymic based on conversation. MOOD i nferred to be mildly anxious/dysthymic b ased on conversation. SPEECH QUANTITY A ppropriate. SPEECH QUALITY S pontaneous, Appropriate volume. THOUGHT PROCESS C oherent and goal directed, slightly circumstantial. THOUGHT CONTENT A ppropriate - WNL. LANGUAGE A ppropriate- WNL. MOTOR ACTIVITY U nable to assess due to telephone visit - patient denies abnormal movements/gait. SUICIDAL IDEATION D enies suicidal ideation. HOMICIDAL IDEATION D enies homicidal ideation. HALLUCINATIONS D enies hallucinations. INSIGHT G ood. JUDGMENT G ood. Assessment: * Assessment: 1. M ood disorder - F39 (Primary) 2 . A nxiety - F41.9 3 .?Depression - F32.9 4 . I nattention - R41.840 Plan: * Treatment: 2. A nxiety Notes: See assessment and plan for mood disorder 3. D epression Notes: See assessment and plan for mood disorder 4. I nattention Notes: Duration (acute/chronic), stability (controlled/uncontrolled): Chronic, uncontrolled, patient not currently taking medications for this, see HPI Current medications/efficacy: N/A Previous medication trials: sertraline (suicidal ideation, increased agitation), buspirone (increased agitation and suicidal ideation once became ) Current/previous therapies: Started therapy yesterday - next appointment in about 3 weeks Examination as documented - see pertinent aspects of office visit documentation. Pertinent diagnostics: LABS MONITORED BY PCP Differential diagnoses: suspect possible contribution of underlying bipolar spectrum disorder based on history, see HPI and below vs ADHD vs anxiety/depressive disorder vs combination thereof vs other Provider discussed that patient's history is not definitively indicative of any particular etiology. Provider explained there is some concern for potential underlying mood disorder due to reported history of periods of increased spending and sexuality; however, provider explained that perhaps this could simply be impulsivity related to potential underlying ADHD. Given that sertraline caused noticeably increased agitation and suicidal ideation (see below), this provider recommended treating patient for potential underlying mood/bipolar spectrum disorder at this time with plans of making adjustments at future visits based on response. Provider explained that monitoring patient response to medication trials will help elucidate the underlying diagnosis. Patient verbalized understanding and agreement with all of the above. RECOMMENDATIONS: START lamotrigine as prescribed to assist with potential underlying mood/bipolar spectrum disorder - educated patient/guardian on adverse effects, risks and benefits, as well as alternative treatments START propranolol as prescribed to assist with anxiety/panic - educated patient/guardian on adverse effects, risks and benefits, as well as alternative treatments START hydroxyzine as prescribed to assist with sleep - educated patient/guardian on adverse effects, risks and benefits, as well as alternative treatments Continue/modify other medications as prescribed - educated patient/guardian on adverse effects, risks and benefits, as well as alternative treatments Consume well balanced diet, preferably low in saturated fats (solid at room temperature, such as butter, margarine, Crisco, etc) and low in sodium (<2,000mg per day). Consume plenty of fruits/vegetables, healthy grains/whole grains, unsaturated/healthy fats (liquid at room temperature, such as olive oil, sunflower seed oil, canola, vegetable, etc.). Exercise regularly - Develop an exercise routine. 30 minutes of moderate exercise (walking at a brisk pace) 5 times per week is recommended. You should work hard enough to cause a sweat but still be able to talk with others while exercising. Exercise improves overall health - improves blood pressure and blood sugar, helps control weight, reduces stress, and improves mood. Practice stress reduction techniques, such as guided imagery, journaling, aromatherapy, acupuncture/acupressure, deep breathing, etc. Practice healthy sleep hygiene - maintain regular routine, no caffeine after 1PM, no exercise 1-2 hours prior to bedtime, keep bedroom dark and cool, no TV or electronics while in bed. Consider melatonin as needed. Consider cognitive behavioral therapy for insomnia (CBT-I). Consider/Continue therapy. Consider/Continue substance cessation therapy as needed - contact office if desiring medication assisted therapy. Manage co-morbid conditions. Continue monitoring symptoms - report persistent or worsening/concerning symptoms to the office or go to the ER. For mental health CRISIS, please reach out to [phone] (National Suicide and Crisis Lifeline), 911, go to the emergency department, or contact the [facility] Crisis Unit/Team. Follow up as scheduled in 4 weeks or sooner if necessary. Follow up with PCP and/or other specialists as advised. NEXT STEP: Consider adjusting current medications pending response/tolerability. Consider starting SSRI/SNRI as needed. Consider starting medication for inattention/potential underlying ADHD. Consider other medication adjustments as needed. * Recommended Wellness and Pre vention Guidelines: * S tatus A ti L ast Done N ext Due A ction Taken N ONCOMPLIANT A lcohol use screening - 0 08/12/2024 - N ONCOMPLIANT B hetal Mass Index - 0 08/12/2024 - N ONCOMPLIANT C ervical cancer screening - 0 08/12/2024 - N ONCOMPLIANT D epression screening - 0 08/12/2024 - N ONCOMPLIANT H IV screening - 0 08/12/2024 - N ONCOMPLIANT P ap +CtNg - 0 08/12/2024 - N ONCOMPLIANT S moking status - 0 08/12/2024 - N ONCOMPLIANT T etanus - 0 08/12/2024 - N ONCOMPLIANT T etanus and Pertussi - 0 08/12/2024 - * Procedure Codes: * Follow Up: 4 Weeks - TELEPHONE (Reason: 4 week psych follow up/med refill) * * INDER OPERATOR Sign off status: Completed true * Provider: Annamaria Quigley APN Date: 0 08/12/2024 Generated for Printi ng/Fatinag/eTransmitting on: 0 09/03/2024 10:39 AM CDT History and Physical Notes * HPI (History of Present Illness) Category Sub-Category Detail Notes Category Not es Interim History Was hospitalized No Emergency room visit No Depression Screening PHQ-9 Little inte rest or pleasure in doing things: Nearly every day Feeling down, depressed, or hopeless: Mo re than half the days Trouble falling or staying asleep, or sl eeping too much: Nearly every day Feeling tired or having little energy: S everal days Poor appetite or overeating: More than h prison the days Feeling bad about yourself o r that you are a failure, or have let yourself or your family down: Several days Trouble concentrating on thi ngs, such as reading the newspaper or watching television: Several days Moving or speaking so slowly that other people could have noticed; or the opposite, being so fidgety or restless that you have been moving around a lot more than usual: Several days Thoughts that you would be b sharmin off or of hurting yourself in some way: Not at all Total Score: 14 Interpretation: Moderate Depression Intervention Depression Screening Findings: P ositive Follow-Up for Depression: No Referral necessary, patient involved in behavioral health treatment . KALE-7 Screening 1. Feeling nervous, anxious, or on edg e :, Nearly every day-3 2. Not being able to stop or control wor rying :, Nearly every day-3 3. Worrying too much about different thi ngs :, Nearly every day-3 4. Trouble sleeping/relaxing :, Several days-1 5. Being so restless that it is hard to sit still :, Not at all-0 6. Becoming easily annoyed or irritable :, More than half the days-2 7. Feeling afraid, as if something awful might happen :, Several days-1 KALE-7 Score Total score: 13 : Adult ADHD Self-Report Scale Symptom Checklist H ave trouble wrapping up final details of project?: Sometimes . Difficulty getting things in order?: Oft en . Problems remembering appointments?: Very Often . Do you avoid or delay getting tasks star melody?: Very Often . Fidget or squirm?: Never . Feel over active or compelled or driven to do things?: Rarely . How often make careless mistakes?: Somet imes . Difficulty keeping attention when bored? : Very Often . Difficulty concentrating on what people say?: Often . Misplace things or difficulty finding th ings at home or work?: Very Often . How often distracted by noise?: Very Oft en . How often leave seat when expected to re main seated?: Never . How often feel restless or fidgety?: Noam etimes . Have difficulty unwinding or relaxing?: Very Often . How often find self talking too much in social situation?: Very Often . Find self finishing sentences of others? : Very Often . How often do you have diffic ulty waiting your turn in situations when turn taking is required?: Never How often do you interupt others when th ey are busy?: Very Often . Screening [place] Suicide Sev erity Rating Scale (LF) Do you want to initiate with: Screener form 1. Wish to be : Have you wished you were or wished you could go to sleep and not wake up?: No 2. Suicidal Thoughts: Have you actually had any thoughts of killing yourself?: No 6. Suicide Behavior Question: Have you ever done anything,started to do anything, or prepared to end your life?: No Interpretation:: Low Risk CSSRS Interpretation and Follow Up Plan CSSRS Interpretation and Follow Up Plan CSSRS Screen documented using SF: Yes Risk Disposition from SF: Low - No Follo w Up Plan Required Follow Up Plan: No Follow Up Plan requir ed at this time. Examination Category Sub-Category Detail Notes Category Not es General Examination GENERAL APPEARANCE: Unable t o perform physical examination - patient verbalizes no concerns during telephone communication Mental Status Exam SENSORIUM AND COGNITION Alert, Oriented to Person, Oriented to Place, Oriented to Time, Oriented to Situation ATTENTION AND CONCENTRATION Mildly impai red attention/concentration APPEARANCE Unable to assess due to telephone visit ATTITUDE AND BEHAVIOR Cooperative MEMORY Grossly intact EYE CONTACT Unable to assess due to telephone visit AFFECT Unable to assess due to telephone visit - inferred to be mildly anxious/dysthymic based on conversation MOOD inferred to be mildl y anxious/dysthymic based on conversation SPEECH QUANTITY Appropriate SPEECH QUALITY Spontaneous, Appropr iate volume THOUGHT PROCESS Coherent and goal di rected, slightly circumstantial THOUGHT CONTENT Appropriate - WNL MOTOR ACTIVITY Unable to assess due to telephone visit - patient denies abnormal movements/gait SUICIDAL IDEATION Denies suicidal idea tion HOMICIDAL IDEATION Denies homicidal kermit ation HALLUCINATIONS Denies hallucination s INSIGHT Good JUDGMENT Good LANGUAGE Appropriate- WNL
--- OUTSIDE RECORDS SUMMARY | 2024-09-03 10:40 | XMS_ITS | Patient Health Record ---
Author Organization [facility], later [facility] Address [address] [place] [address] Care Team Providers Care Deer Farmer Name Role Phone QuigleyLinusy Primary Care Provider Allergies Allergen (clinical drug ingredient) Drug/Non Drug Allergy documented on EMR Reaction Allergy Type Onset Date Status Garlic (uncoded) Hives and itching. Allergy Active Latex Latex (uncoded) Hives and itching. Allergy Active Serlatine (uncoded) Suicidal thoughts Allergy Active sertraline Sertraline Unknown Drug Allergy Activ e Reason For Referral No Information Medications Medication SIG (Take, Route, Fr equency, Duration) Notes Start Date End Date Status Propranolol HCl 10 MG TAKE 1 TABLET BY M OUTH TWICE DAILY for 90 Active hydrOXYzine HCl 50 MG 0.5-1 tablet once nightly at bedtime as needed for sleep Orally for 30 days 08/12/2024 Active lamoTRIgine 25 MG 1 tablet (25mg) once daily for 14 days, THEN INCREASE to 2 tablets (50mg) once daily Orally for 30 days 08/12/2024 Active Slynd 4 MG 1 tablet Orally Once a day Active Social History Tobacco Use: Social History Observation Description Date Details (start date - stop date) Former Smoker 07/01/2017 - 08/25/2023 PRAPARE Question Answer Notes Date Completed/Updated: 08/11/2024 What is your current housing situation? I have h ousing Are you worried about losing your housing? No What is the highest level of school that you have finished? 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 Stress is when someone feels tense, nervous, anxious, or can\t sleep at night because their mind is troubled Somewhat In the past year have you sp ent more than 2 nights in a row in a care home, fci, fci center, or juvenile correctional facility? No Do you feel physically and e motionally safe where you currently live? Yes In the past year, have you b een afraid of your partner or ex-partner? No PRAPARE Score: 5 Tobacco Control (Standard) Question Answer Notes Tobacco use: Former smoker When did you start smoking? 07/01/2017 When did you stop smoking? 08/25/2023 How long has it been since you last smoked? 6-12 months Problems Problem Type SNOMED Code ICD Code Onset Dates Problem Status W/U Status Risk Notes Problem Depression (862259235) Depression (F32.9) Active confirmed Problem Mood disorder (33989806) Mood disorder (F39) Active confirmed Problem Anxiety (57839575) Anxiety (F41.9) Active confirmed Problem Inattention (80542181) Inattention (R41.840) Active confirmed Encounters Encounter Location Date Provider Diagnosis [address] [place] [address] 08/12/2024 Lorenzo Quigley Mood disorder F39 ; Anxiety F41.9 ; Depression F32.9 and Inattention R41.[address] [place] [address] 08/12/2024 Lorenzo Quigley [address] [place] [address] 08/12/2024 Lorenzo Quigley Assessments Encounter Date Diagnosis (ICD Code) Assessment [...] health CRISIS, please reach out to [phone] ([facility] Crisis [facility]), 911, go to the emergency department, or contact the [facility] Crisis Unit/Team. Follow up as scheduled in [...] health CRISIS, please reach out to [phone] ([facility] Crisis [facility]), 911, go to the emergency department, or contact the [facility] Crisis Unit/Team. Follow up as scheduled in 4 weeks or sooner if necessary. Follow up with PCP and/or other specialists as advised. NEXT STEP: Consider adjusting current medications pending response/tolerabi lity. Consider starting SSRI/SNRI as needed. Consider starting medication for inattention/poten tial underlying ADHD. Consider other medication adjustments as needed. Plan Of Treatment No Information Insurance Providers Payer Name Payer Address Payer Phone Subscriber Number Group Number Insured Name Patient Relationship to Insured Coverage Start Date Coverage End Date [employer] [address] [place] [address] [id number] Christina Scott Self - patient is the insured 4 [employer] [address] [place] [address] [id number] Christina Scott Self - patient is the insured 5 Medical (General) History Surgical History Surgery Date(Month/Year) hysterectomy 2020 Hysterectomy 06/01/2021 dilatation and curettage x2 laparotomy 2015, 2021 COLONOSCOPY 2022
--- OUTSIDE RECORDS SUMMARY | 2024-09-03 10:40 | XMS_ITS ---
Author Organization [facility] Address [address] [place] [address] Care Team Providers Care Intelligence Operations Name Role Phone Lorenzo Quigley Primary Care Provider Encounters Encounter Location Date Provider Diagnosis [address] [place] [address] 08/12/2024 Lorenzo Quigley Plan Of Treatment No Information Progress Notes * SARA MollyhDOB:1995 (29 yo F)Acc No.[id number]:08/12/2024 Patient: Christina PONCE :1995 A ge:29 Y S ex:Female Address:[address] [place], [address] * true * Date: Generated for Foresti tre/Fatinag/eTransmitting on: 0 09/03/2024 10:40 AM CDT
== END 2024-09-03 09:58 | disposition home or self-care (01) ==
PROVIDERS: PCP Family Medicine; Visit Provider Nurse Practitioner Family
DX: R10.11 Right upper quadrant pain (principal)
CPT/HCPCS: 78226; A9537

== ENCOUNTER 2024-10-19 08:51 | Outpatient (CLI) | payer OTHER, SELFPAY ==
--- NOTE | ~2024-10-19 | XR_ITS ---
AP and lateral views of the left femur Clinical History: Pain Findings: No acute fracture or dislocation is seen. Osseous alignment is anatomic. Visualized joint s paces are grossly preserved. Soft tissues are unremarkable. Impression: Unremarkable left femoral radiographs. Reviewed, dictated and finalized at location M. Impression: Unremarkable left femoral radiographs.
--- OUTSIDE RECORDS SUMMARY | 2024-10-19 09:23 | XMS_ITS | Clinical Summary ---
Author Organization [facility] Address [address] [place] [address] Care Team Providers Care Wood Type Finisher Name Role Phone Deepika Tian DO Primary Care Provider [phone] Allergies Active Allergy Reactions Criticality Noted Date [...] on file Legal Sex Female 9:00 AM FAMILY PSYCHOLOGIST Gender Identity Not on file Sexual Orientation Not on file Last Filed Vital Signs Vital Sign Reading Time Taken Comments Blood Pressure 97/61 08/04/2022 1:21 PM FAMILY PSYCHOLOGIST Pulse 62 08/04/2022 1:21 PM FAMILY PSYCHOLOGIST Temperature 36.6 C (97.9 F) 08/04/2022 10:56 AM FAMILY PSYCHOLOGIST Respiratory Rate 16 08/04/2022 1:21 PM FAMILY PSYCHOLOGIST Oxygen Saturation 99% 08/04/2022 1:21 PM FAMILY PSYCHOLOGIST Inhaled Oxygen Concentration - - Weight 47 kg (103 lb 9.9 oz) 08/04/2022 10:56 AM FAMILY PSYCHOLOGIST Height 154.9 cm (5' 1 ) 08/04/2022 10:56 AM FAMILY PSYCHOLOGIST Body Mass Index 19.58 08/04/2022 10:56 AM FAMILY PSYCHOLOGIST Plan of Treatment Health Maintenance Due Date Last Done Comments Depression Screening 1995 Hepatitis C Screening 1995 Regular Well Visit/Exam 18-64 2012 Influenza Vaccine (Season Ended) 2025 06/17/2012 DTaP/Tdap/Td Vaccine (8 - Td or Tdap) 01/21/2031 01/21/2021, 12/13/2008, 11/27/1999, Additional history exists Hepatitis B Screening Completed 10/11/1997 , 01/25/1995, 1994 HPV Vaccines Completed 06/14/2009, 01/22, 12/14/2008 Varicella Vaccines Completed 01/19/2013, 03/04/2002 Pneumococcal vaccine <65 Aged Out No longer eligible based on patient's age to complete this topic Insurance Care Teams Wood Type Finisher Relationship Specialty Start Date End Date Deepika Tian DO PCP - General Family Medicine 08/04/22
--- OUTSIDE RECORDS SUMMARY | 2024-10-19 09:23 | XMS_ITS | Clinical Summary ---
Author Organization [facility] Address [address] [place] [address] Care Team Providers Care Investigative Shopper Name Role Phone Moy Lombardi MD Primary Care Provider [phone] Allergies Active Allergy Reactions Criticality Noted Date [...] on file Legal Sex Female 5:45 PM LIME FILTER OPERATOR Gender Identity Not on file Sexual [...] (108 lb 0.4 oz) 05/24/2019 8:05 AM LIME FILTER OPERATOR Height 154.9 cm (5' 1 ) 05/24/2019 8:05 AM LIME FILTER OPERATOR Body Mass Index 20.41 05/24/2019 8:05 AM LIME FILTER OPERATOR Plan of Treatment Health Maintenance Due Date Last Done Comments Cervical Cancer Screening Pap Smear (Age 30 to 64) Every 3 Years 1994 Annual Physical 1997 DTaP, Tdap and Td Vaccines (5 - Tdap) 2005 11/27/1999, 08/05/1997, 05/22/1995, Additional history exists Hepatitis C 2012 Hepatitis B Vaccines (1 of 3 - 19+ 3-dose series) 2013 COVID-19 Vaccine (2023- season) 2024 Cervical Cancer Screening Pap with HPV Testing (Age 30 to 64) Every 5 Years 2024 Cervical Cancer Screening with HPV 2024 HPV Vaccines Completed 06/14/2009, 01/22, 12/14/2008 Meningococcal Vaccine Completed 01/18/2013 Meningococcal B Vaccine Aged Out No l onger eligible based on patient's age to complete this topic Pneumococcal Vaccine: Pediatrics (0 to 5 Years) and At-Risk Patients (6 to 49 Years) Aged Out No longer eligible based on patient's age to complete this topic RSV Immunizations Under 20 Months Aged Out No longer eligible based on patient's age to complete this topic Insurance [employer] Care Teams Investigative Shopper Relationship Specialty Start Date End Date Moy Lombardi MD [address] [place] [address] PCP - General FAMILY PRACTICE 05/24/19
--- OUTSIDE RECORDS SUMMARY | 2024-10-19 09:23 | XMS_ITS | Referral Summary ---
Author Organization [facility] at the [facility] Address [address] [place] [address] Care Team Providers Care Tailor'S Aide Name Role Phone Deepika Tian Primary Care Provider [phone] Allergies Active Allergy Reactions Criticality Noted Date [...] on file Legal Sex Female 9:00 AM GARMENT TURNER Gender Identity Not on file Sexual Orientation Not on file Last Filed Vital Signs Vital Sign Reading Time Taken Comments Blood Pressure 97/61 08/04/2022 1:21 PM GARMENT TURNER Pulse 62 08/04/2022 1:21 PM GARMENT TURNER Temperature 36.6 C (97.9 F) 08/04/2022 10:56 AM GARMENT TURNER Respiratory Rate 16 08/04/2022 1:21 PM GARMENT TURNER Oxygen Saturation 99% 08/04/2022 1:21 PM GARMENT TURNER Inhaled Oxygen Concentration - - Weight 47 kg (103 lb 9.9 oz) 08/04/2022 10:56 AM GARMENT TURNER Height 154.9 cm (5' 1 ) 08/04/2022 10:56 AM GARMENT TURNER Body Mass Index 19.58 08/04/2022 10:56 AM GARMENT TURNER Plan of Treatment Not on file Insurance Care Teams Tailor'S Aide Relationship Specialty Start Date End Date Deepika Tian DO PCP - General Family Medicine 08/04/22
--- OUTSIDE RECORDS SUMMARY | 2024-10-19 09:23 | XMS_ITS | Encounter Summary ---
Author Organization [facility] Address [address] [place] [address] Care Team Providers Care Desk Editor Name Role Phone Moy Lombardi MD Primary Care Provider Encounter Details Date Type Department Care Team (Late st Contact Info) Description 11/28/2018 Abstract [facility]FL CONVERSION [address] [place] [place] [address] , Generic Conversion, Social History Tobacco Use Types Packs/Day Years Used Date Smoking Tobacco: Never Assessed Comments Unknown Sex and Gender Information Value Date Recorded Sex Assigned at Not on file Legal Sex Female 5:45 PM MEAT STUFFER Gender Identity Not on file Sexual Orientation Not on file documented as of this encounter Plan of Treatment Not on file documented as of this encounter Visit Diagnoses Not on filedocumented in this encounter Care Teams Desk Editor Relationship Specialty Start Date End Date Moy Lombardi MD [address] [place] [address] PCP - General FAMILY PRACTICE 05/24/19 documented as of this encounter
== END 2024-10-19 08:52 | disposition home or self-care (01) ==
LOC: ANHASCIMG 08:53
PROVIDERS: PCP Family Medicine; Visit Provider Family Medicine
DX: M79.652 Pain in left thigh (principal)
CPT/HCPCS: 73552

== ENCOUNTER 2024-12-28 12:21 | Emergency (ER) | payer OTHER, SELFPAY ==
--- NOTE | ~2024-12-28 | CT_ITS ---
EXAMINATION: CT abdomen pelvis w con DATE: 12/28/2024 14:18 INDICATION: Abdominal pain TECHNIQUE: Computed tomography (CT) of the abdomen and pelvis was performed with 100 mL Omnipaque-350 intravenous contrast. Automated exposure control and iterative reconstruction technique were employe d. The dose-length product was 253.18 mGy-cm. COMPARISON: 08/11/2024 FINDINGS: Minimal dependent atelectasis in the left lower lobe. Heart size is normal. No pericardial or pleural effusion. Liver, gallbladder, spleen, pancreas, bilateral adrenal glands and kidneys are normal. [place] els including the appendix are normal. Bladder is normal. The uterus and left ovary are not identifie d and have likely been surgically resected. There are a few subcentimeter follicles at the right ovar y. No free intraperitoneal gas or fluid. No pathologically enlarged abdominal or pelvic lymphadenopat hy. Mild thoracolumbar dextrocurvature with mild spondylosis. IMPRESSION: 1. No acute intra-abdominal/pelvic process. Reviewed, dictated and finalized at location A.
--- OUTSIDE RECORDS SUMMARY | 2024-12-28 12:23 | XMS_ITS | Clinical Summary ---
Author Organization [facility] Address [address] [place] [address] Care Team Providers Care Rose Grader Name Role Phone Moy Lombardi MD Primary Care Provider [phone] Allergies Active Allergy Reactions Criticality Noted Date [...] on file Legal Sex Female 5:45 PM PERSONNEL SPECIALIST Gender Identity Not on file Sexual [...] (108 lb 0.4 oz) 05/24/2019 8:05 AM PERSONNEL SPECIALIST Height 154.9 cm (5' 1) 05/24/2019 8:05 AM PERSONNEL SPECIALIST Body Mass Index 20.41 05/24/2019 8:05 AM PERSONNEL SPECIALIST Plan of Treatment Health Maintenance Due Date [...] Insurance [employer] Care Teams Rose Grader Relationship Specialty Start Date End Date Moy Lombardi MD [address] [place] [address] PCP - General FAMILY PRACTICE 05/24/19
--- OUTSIDE RECORDS SUMMARY | 2024-12-28 12:23 | XMS_ITS | Referral Summary ---
Author Organization [facility] Address [address] [place] [address] Care Team Providers Care Special Events Assistant Name Role Phone Deepika Tian Primary Care Provider [phone] Allergies Active Allergy Reactions Criticality Noted Date [...] on file Legal Sex Female 9:00 AM SHAPER SETTER Gender Identity Not on file Sexual Orientation Not on file Last Filed Vital Signs Vital Sign Reading Time Taken Comments Blood Pressure 97/61 08/04/2022 1:21 PM SHAPER SETTER Pulse 62 08/04/2022 1:21 PM SHAPER SETTER Temperature 36.6 C (97.9 F) 08/04/2022 10:56 AM SHAPER SETTER Respiratory Rate 16 08/04/2022 1:21 PM SHAPER SETTER Oxygen Saturation 99% 08/04/2022 1:21 PM SHAPER SETTER Inhaled Oxygen Concentration - - Weight 47 kg (103 lb 9.9 oz) 08/04/2022 10:56 AM SHAPER SETTER Height 154.9 cm (5' 1) 08/04/2022 10:56 AM SHAPER SETTER Body Mass Index 19.58 08/04/2022 10:56 AM SHAPER SETTER Plan of Treatment Not on file Insurance Care Teams Special Events Assistant Relationship Specialty Start Date End Date Deepika Tian DO PCP - General Family Medicine 08/04/22
--- OUTSIDE RECORDS SUMMARY | 2024-12-28 12:23 | XMS_ITS | Encounter Summary ---
Author Organization [facility] Address [address] [place] [address] Care Team Providers Care Marble Cutter Name Role Phone Moy Lombardi MD Primary Care Provider [phone] Encounter Details Date Type Department Care Team (Late st Contact Info) Description 11/28/2018 Abstract [facility] CONVERSION [address] [place] [address] , Generic Conversion, Social History Tobacco Use Types Packs/Day Years Used Date Smoking Tobacco: Never Assessed Comments Unknown Sex and Gender Information Value Date Recorded Sex Assigned at Not on file Legal Sex Female 5:45 PM WILDLIFE TECHNICIAN Gender Identity Not on file Sexual Orientation Not on file documented as of this encounter Plan of Treatment Not on file documented as of this encounter Visit Diagnoses Not on filedocumented in this encounter Care Teams Marble Cutter Relationship Specialty Start Date End Date Moy Lombardi MD [address] [place] [address] PCP - General FAMILY PRACTICE 05/24/19 documented as of this encounter
--- OUTSIDE RECORDS SUMMARY | 2024-12-28 12:23 | XMS_ITS | Patient Health Record ---
Author Organization [facility] Address [address] [place] [address] Care Team Providers Care Body Shop Manager Name Role Phone Lorenzo Quigley Primary Care Provider Naomie Jordan Unavailable [phone] Allergies Allergen (clinical drug ingredient) Drug/Non Drug Allergy documented on EMR Reaction Allergy Type Onset Date Status Garlic (uncoded) Hives and itching. Allergy Active Latex Latex (uncoded) Hives and itching. Allergy Active Serlatine (uncoded) Suicidal thoughts Allergy Active sertraline Sertraline Unknown Drug Allergy Activ e Reason For Referral No Information Medications Medication SIG (Take, Route, Frequency, Duration) Notes Start Date End Date Status ARIPiprazole 10 MG 1 tablet once nightl y at bedtime Orally Once a day; Duration: 30 days Active Propranolol HCl ER 80 MG 1 capsule Orall y Once a day; Duration: 30 days Active traZODone HCl 50 MG 1 tablet at bedtime as needed Orally Once a day; Duration: 30 days Active FLUoxetine HCl 20 MG 1 capsule Orally On ce a day; Duration: 30 days Active hydrOXYzine HCl 50 MG 2 tablets once nig htly at bedtime as needed for sleep Orally; Duration: 30 days Active Slynd 4 MG 1 tablet Orally Once a day Active Social History Tobacco Use: Social History Observation Description Date Details (start date - stop date) Former Smoker 07/26/2018 - 10/05/2022 PRAPARE Question Answer Notes Date Completed/Updated: 08/11/2024 What is your current housing situation? I have h ousing Are you worried about losing your housing? No What is the highest level of school that you have finished? 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 Stress is when someone feels tense, nervous, anxious, or can\t sleep at night because their mind is troubled Somewhat In the past year have you sp ent more than 2 nights in a row in a half-way, detention, usp center, or juvenile correctional facility? No Do you feel physically and e motionally safe where you currently live? Yes In the past year, have you b een afraid of your partner or ex-partner? No PRAPARE Score: 5 Tobacco Control (Standard) Question Answer Notes Additional Findings: Tobacco user Light cigarett e smoker (1-9 cigs/day) Additional Findings: Tobacco non-user Cu rrent nonsmoker,Ex-light cigarette smoker (1-9/day) When did you start smoking? 07/26/2018 When did you stop smoking? 10/05/2022 How long has it been since y ou last smoked? 5-10 years Tobacco use: Former smoker Problems Problem Type SNOMED Code ICD Code Onset Dates Problem Status W/U Status Risk Notes Problem Depression (990805303) Depression (F32.9) Active confirmed Problem Mood disorder (01363182) Mood disorder (F39) Active confirmed Problem Anxiety (99355842) Anxiety (F41.9) Active confirmed Problem Inattention (49400112) Inattention (R41.840) Active confirmed Vital Signs Height 61 in 11/02/2024 Weight 123 lbs 12/21/2024 BMI 23.24 kg/m2 11/02/2024 Encounters Encounter Location Date Provider Diagnosis [address] [place] [address] 08/12/2024 Lorenzo Quigley Mood disorder F39 ; Anxiety F41.9 ; Depression F32.9 and Inattention R41.[address] [address] 09/15/2024 Lorenzo Quigley Mood disorder F39 ; Anxiety F41.9 ; Depression F32.9 and Inattention R41.[address] [address] 10/12/2024 Lorenzo Quigley Mood disorder F39 ; Anxiety F41.9 ; Depression F32.9 and Inattention R41.[address] [address] 11/02/2024 Lorenzo Quigley Mood disorder F39 ; Anxiety F41.9 ; Depression F32.9 and Inattention R41.840 [facility] [address], [place] [address] 12/21/2024 Naomie Nikki Mood disorder F39 ; Anxiety F41.9 ; Depression F32.9 ; Inattention R41.840 and Therapeutic drug monitoring Z51.[address] [address] 08/12/2024 Lorenzo Quigley [address] [address] 08/12/2024 Lorenzo Quigley Assessments Encounter Date Diagnosis (ICD Code) Assessment Notes Treatment Notes Treatment Clinical Notes Section Notes 08/12/2024 Mood disorder (ICD-10 - F39) Duration (acute/chronic), stability (controlled/uncontro lled): Chronic, uncontrolled, patient not currently taking medications for this, see HPI Current medications/efficacy : N/A Previous medication trials: sertraline (suicidal ideation, [...] techniques, such as guided imagery, journaling, aromatherapy, acupuncture/acupress ure, deep breathing, etc. Practice healthy sleep hygiene [...] to the emergency department, or contact the [facility] Crisis Unit/Team. Follow up as scheduled in 4 weeks or sooner if necessary. Follow up with PCP and/or other specialists as advised. NEXT STEP: Consider adjusting current medications pending response/tolerabilit y. Consider starting SSRI/SNRI as needed. Consider starting medication for inattention/potentia l underlying ADHD. Consider other medication adjustments as needed. 09/15/2024 Mood disorder (ICD-10 - F39) Duration (acute/chronic), stability (controlled/uncontro lled): Chronic, improved with recent medication adjustments, still some room for improvement, see HPI Current medications/efficacy : Somewhat, room for improvement Previous medication trials: sertraline (suicidal ideation, increased agitation), buspirone (increased agitation and suicidal ideation once became ) Current/previous therapies: Currently following up with therapy, following up about every 2 weeks Examination as documented - see pertinent aspects of office visit documentation. Pertinent diagnostics: LABS MONITORED BY PCP Differential diagnoses: suspect possible underlying bipolar spectrum disorder based on history, see HPI and below DISCUSSION DURING PREVIOUS APPOINTMENT: Provider discussed that patient's history is not [...] agreement with all of the above. RECOMMENDATIONS: INCREASE lamotrigine as prescribed to assist with potential underlying mood/bipolar spectrum disorder - educated patient/guardian on adverse effects, risks and benefits, as well as alternative treatments INCREASE propranolol as prescribed to assist with anxiety/panic - educated patient/guardian on adverse effects, risks and benefits, as well as alternative treatments CONTINUE hydroxyzine as prescribed to assist with sleep [...] techniques, such as guided imagery, journaling, aromatherapy, acupuncture/acupress ure, deep breathing, etc. Practice healthy sleep hygiene [...] to the emergency department, or contact the [facility] Crisis Unit/Team. Follow up as scheduled in 4 weeks or sooner if necessary. Follow up with PCP and/or other specialists as advised. NEXT STEP: Consider adjusting current medications pending response/tolerabilit y. Consider starting SSRI/SNRI as needed. Consider starting medication for inattention/potentia l underlying ADHD. Consider other medication adjustments as needed. 10/12/2024 Mood disorder (ICD-10 - F39) Duration (acute/chronic), stability (controlled/uncontro lled): Chronic, anxiety/depression improved with recent medication adjustments, but agitation/irritabili ty slightly increased, still some room for improvement, see HPI Current medications/efficacy : Somewhat, room for improvement Previous medication trials: sertraline (suicidal ideation, increased agitation), buspirone (increased agitation and suicidal ideation once became ), lamotrigine (increased agitation at 100mg dose), propranolol, hydroxyzine Current/previous therapies: Currently following up with therapy, following up about every 2 weeks Examination as documented - see pertinent aspects of office visit documentation. Pertinent diagnostics: LABS MONITORED BY PCP Differential diagnoses: suspect possible underlying bipolar spectrum disorder based on history, see HPI and below DISCUSSION DURING PREVIOUS APPOINTMENT: Provider discussed that patient's history is not [...] agreement with all of the above. RECOMMENDATIONS: STOP lamotrigine as discussed due to increased agitation and START aripiprazole as prescribed to assist with potential underlying mood/bipolar spectrum disorder - educated patient/guardian on adverse effects, risks and benefits, as well as alternative treatments INCREASE propranolol as prescribed to assist with anxiety/panic - educated patient/guardian on adverse effects, risks and benefits, as well as alternative treatments INCREASE hydroxyzine as prescribed to assist with sleep [...] techniques, such as guided imagery, journaling, aromatherapy, acupuncture/acupress ure, deep breathing, etc. Practice healthy sleep hygiene [...] health CRISIS, please reach out to [phone] ([facility]), 911, go to the emergency department, or contact the [facility] Crisis Unit/Team. Follow up as scheduled in 4 weeks or sooner if necessary. Follow up with PCP and/or other specialists as advised. NEXT STEP: Consider adjusting current medications pending response/tolerabilit y. Consider starting SSRI/SNRI as needed. Consider starting medication for inattention/potentia l underlying ADHD. Consider other medication adjustments as needed. 11/02/2024 Mood disorder (ICD-10 - F39) Duration (acute/chronic), stability (controlled/uncontro lled): Chronic, noticeable improvement with recent medication adjustments, still some room for improvement, see HPI Current medications/efficacy : Somewhat, room for improvement Previous medication trials: sertraline (suicidal ideation, increased agitation), buspirone (increased agitation and suicidal ideation once became ), lamotrigine (increased agitation at 100mg dose), propranolol, hydroxyzine Current/previous therapies: Currently following up with therapy, following up about every 2 weeks Examination as documented - see pertinent aspects of office visit documentation. Pertinent diagnostics: LABS MONITORED BY PCP Differential diagnoses: suspect possible underlying bipolar spectrum disorder based on history, see HPI and below DISCUSSION DURING PREVIOUS APPOINTMENT: Provider discussed that patient's history is not [...] with all of the above. RECOMMENDATIONS: START fluoxetine as prescribed to assist with anxiety/depression - educated patient/guardian on adverse effects, risks and benefits, as well as alternative treatments START trazodone as prescribed to assist with sleep - [...] techniques, such as guided imagery, journaling, aromatherapy, acupuncture/acupress ure, deep breathing, etc. Practice healthy sleep hygiene [...] to the emergency department, or contact the [facility] Crisis Unit/Team. Follow up as scheduled in 4 weeks or sooner if necessary. Follow up with PCP and/or other specialists as advised. NEXT STEP: Consider adjusting current medications pending response/tolerabilit y. Consider starting medication for inattention/potentia l underlying ADHD. Consider other medication adjustments as needed. 12/21/2024 Mood disorder (ICD-10 - F39) 12/21/2024 Anxiety (ICD-10 - F41.9) 11/02/2024 Anxiety (ICD-10 - F41.9) See assessment and plan for mood disorder 10/12/2024 Anxiety (ICD-10 - F41.9) See assessment and plan for mood disorder 09/15/2024 Anxiety (ICD-10 - F41.9) See assessment and plan for mood disorder 08/12/2024 Anxiety (ICD-10 - F41.9) See assessment and plan for mood disorder 08/12/2024 Depression (ICD-10 - F32.9) See assessment and plan for mood disorder 09/15/2024 Depression (ICD-10 - F32.9) See assessment and plan for mood disorder 10/12/2024 Depression (ICD-10 - F32.9) See assessment and plan for mood disorder 11/02/2024 Depression (ICD-10 - F32.9) See assessment and plan for mood disorder 12/21/2024 Depression (ICD-10 - F32.9) 11/02/2024 Inattention (ICD-10 - R41.840) Duration (acute/chronic), stability (controlled/uncontro lled): Chronic, somewhat improved with improvements in mood, see HPI Current medications/efficacy : Somewhat, room for improvement Previous medication trials: sertraline (suicidal ideation, increased [...] anxiety/depressive disorder vs combination thereof vs other DISCUSSION DURING PREVIOUS APPOINTMENT: Provider discussed that patient's history is not [...] agreement with all of the above. RECOMMENDATIONS: Continue/modify medications as prescribed - educated patient/guardian on [...] techniques, such as guided imagery, journaling, aromatherapy, acupuncture/acupress ure, deep breathing, etc. Practice healthy sleep hygiene [...] to the emergency department, or contact the [facility] Crisis Unit/Team. Follow up as scheduled in 4 weeks or sooner if necessary. Follow up with PCP and/or other specialists as advised. NEXT STEP: Consider adjusting current medications pending response/tolerabilit y. Consider starting medication for inattention/potentia l underlying ADHD. Consider other medication adjustments as needed. 12/21/2024 Inattention (ICD-10 - R41.840) 08/12/2024 Inattention (ICD-10 - R41.840) Duration (acute/chronic), stability (controlled/uncontro lled): Chronic, uncontrolled, patient not currently taking medications for this, see HPI Current medications/efficacy : N/A Previous medication trials: sertraline (suicidal ideation, [...] techniques, such as guided imagery, journaling, aromatherapy, acupuncture/acupress ure, deep breathing, etc. Practice healthy sleep hygiene [...] to the emergency department, or contact the [facility] Crisis Unit/Team. Follow up as scheduled in 4 weeks or sooner if necessary. Follow up with PCP and/or other specialists as advised. NEXT STEP: Consider adjusting current medications pending response/tolerabilit y. Consider starting SSRI/SNRI as needed. Consider starting medication for inattention/potentia l underlying ADHD. Consider other medication adjustments as needed. 09/15/2024 Inattention (ICD-10 - R41.840) Duration (acute/chronic), stability (controlled/uncontro lled): Chronic, somewhat improved with improvements in mood, see HPI Current medications/efficacy : Somewhat, room for improvement Previous medication trials: sertraline (suicidal ideation, increased [...] anxiety/depressive disorder vs combination thereof vs other DISCUSSION DURING PREVIOUS APPOINTMENT: Provider discussed that patient's history is not [...] agreement with all of the above. RECOMMENDATIONS: INCREASE lamotrigine as prescribed to assist with potential underlying mood/bipolar spectrum disorder - educated patient/guardian on adverse effects, risks and benefits, as well as alternative treatments INCREASE propranolol as prescribed to assist with anxiety/panic - educated patient/guardian on adverse effects, risks and benefits, as well as alternative treatments CONTINUE hydroxyzine as prescribed to assist with sleep [...] techniques, such as guided imagery, journaling, aromatherapy, acupuncture/acupress ure, deep breathing, etc. Practice healthy sleep hygiene [...] to the emergency department, or contact the [facility] Crisis Unit/Team. Follow up as scheduled in 4 weeks or sooner if necessary. Follow up with PCP and/or other specialists as advised. NEXT STEP: Consider adjusting current medications pending response/tolerabilit y. Consider starting SSRI/SNRI as needed. Consider starting medication for inattention/potentia l underlying ADHD. Consider other medication adjustments as needed. 10/12/2024 Inattention (ICD-10 - R41.840) Duration (acute/chronic), stability (controlled/uncontro lled): Chronic, somewhat improved with improvements in mood, see HPI Current medications/efficacy : Somewhat, room for improvement Previous medication trials: sertraline (suicidal ideation, increased [...] anxiety/depressive disorder vs combination thereof vs other DISCUSSION DURING PREVIOUS APPOINTMENT: Provider discussed that patient's history is not [...] agreement with all of the above. RECOMMENDATIONS: STOP lamotrigine as discussed due to increased agitation and START aripiprazole as prescribed to assist with potential underlying mood/bipolar spectrum disorder - educated patient/guardian on adverse effects, risks and benefits, as well as alternative treatments INCREASE propranolol as prescribed to assist with anxiety/panic - educated patient/guardian on adverse effects, risks and benefits, as well as alternative treatments INCREASE hydroxyzine as prescribed to assist with sleep [...] techniques, such as guided imagery, journaling, aromatherapy, acupuncture/acupress ure, deep breathing, etc. Practice healthy sleep hygiene [...] to the emergency department, or contact the [facility] Crisis Unit/Team. Follow up as scheduled in 4 weeks or sooner if necessary. Follow up with PCP and/or other specialists as advised. NEXT STEP: Consider adjusting current medications pending response/tolerabilit y. Consider starting SSRI/SNRI as needed. Consider starting medication for inattention/potentia l underlying ADHD. Consider other medication adjustments as needed. 12/21/2024 Therapeutic drug monitoring (ICD-10 - Z51.81) 12/21/2024 Other May self-administer medications or be administered own oral medications per [facility] protocols. Provided informed consent with understanding of side effects, adverse effects, risks and benefits as well as alternative treatments as previously discussed and with the above recommended medications & other aspects of the treatment program. Agrees to return sooner if symptoms worsen or suicidal or homicidal ideations occur. Unable to complete AIMS due to nature of appt, denies any irregular muscle movements; would benefit from an in person appointment. Medication Hx: -sertraline (suicidal ideation, increased agitation) -buspirone (increased agitation and suicidal ideation once became ) -lamotrigine (increased agitation at 100mg dose) -propranolol -hydroxyzine Plan: -Increase Aripiprazole to 10 mg QHS -Increase Propranolol ER to 80 mg once daily -Continue Trazodone 50 mg QHS PRN -Continue Fluoxetine 20 mg once daily *ordered labs & UDS Treatment Plan: -Consider starting Hydroxyzine again for anxiety PRN -Follow up: 4 weeks [] Hard Rx handed to patient [] Rx phoned into pharmacy [x] Rx faxed/e-prescribed into pharmacy [x] PDMP Reviewed [] [facility] Reviewed Encouraged by Naomie Jordan PMHNP-BC to: [] consider utilizing therapist/counselor/ psychologist social/psychologist, referral given [x] continue with therapist/counselor/ psychologist social/psychologist Psychoeducation: -Treatment options discussed in detail with patient/guardian verbalizing understanding of treatment rationales. -Side effects and benefits of all medications prescribed discussed at length between psychiatric prescribing provider and patient/guardian along with the risks associated of [id number] interactions, including but not limited to prescription medications, OTC medications, vitamins, minerals and herbal supplements. -Patient/Guardian and provider dialogue showcased verbalized understanding from patient on rationales of medication risk vs benefits. -Information with neurobiology of presenting neurotransmitter disorder, mood stability, sleep hygiene and 7-8 hours of uninterrupted sleep per night with wakeful and refreshed awakening and day long alertness discussed. -Reduction of stress and anxiety to aid in focus and concentration discussed, again, with patient/guardian physically nodding, voicing understanding, and engaged in treatment plan with Naomie Jordan [facility]. -Perceiving complete understanding of rationale by patient/guardian and willingness to adhere to formulated plan of care by prescriber with patient/guardian buy-in, willingness to participate actively in plan of care and willing to take charge of own care. -Although geared for female patients, all patients/guardians are informed by prescribing provider of risks of medications that could potentially be taken by female/women within their [place] of influence and that women who use medicine during have a higher chance of having a baby with defects. -Patient/Guardian denies being and/or knowing of women who are at present and denies wanting to become in the foreseeable future, 0-6 months from now. -Patient/Guardian again informed of the risk of pharmaceutical medications consumed during and how there are potential negative effects on the developing fetus. -Patient/Guardian verbalizes understanding of rationale and physically nods head in agreement that if a should occur, to consult with provider, MANAGER CHILD and/or Nurse Rice Dryer Mechanic to determine if prescribed medications should or should not be continued. -Instructions regarding both the medical/pharmacologi marlen and non-pharmacologic aspects of the treatments employed were given, and the patient/guardian seemed to understand this. Risks and benefits of treatment, and of non-treatment, were also discussed. The patient/guardian understands the more frequent side effects associated with the medications. -The use of psychotherapy was addressed today and will continue on an as needed basis for the foreseeable future. The choice is, of course, ultimately left to the patient/guardian. -Patient/Guardian was encouraged to make a follow-up appointment for the next visit. -Additional treatment was discussed and has been addressed on an ongoing basis within the context of this patient's illness, resources, progress, and other appropriate factors. Being compliant with a regular exercise routine, consistent medication use, ongoing psychotherapy, eating and sleeping well, as well as the importance of handling stress, was discussed. Plan Of Treatment Pending Test Test Name Order Date Hemoglobin A1c* 12/21/2024 Vitamin B12* 12/21/2024 CBC With Differential/Platelet* 12/22/19 25 Vitamin D, 25-Hydroxy* 12/21/2024 TSH+Free T4* 12/21/2024 Lipid Panel* 12/21/2024 CMP 14 Comprehensive Metabolic Panel* 14 Panel Urine Drug Screen 12/21/2024 Insurance Providers Payer Name Payer Address Payer Phone Subscriber Number Group Number Insured Name Patient Relationship to Insured Coverage Start Date Coverage End Date [employer] [address] [place] [address] [id number] Christina Scott Self - patient is the insured 4 [employer] [address] [place] [address] [id number] Christina Scott Self - patient is the insured 5 Medical (General) History Surgical History Surgery Date(Month/Year) dilatation and curettage x2 laparotomy 2021 COLONOSCOPY 2022 TOTAL HYSTERECTOMY 06/01/2021
--- OUTSIDE RECORDS SUMMARY | 2024-12-28 12:23 | XMS_ITS | Clinical Summary ---
Author Organization [facility] at the [facility] Office Center Address [address] [place] [address] Care Team Providers Care Small Kick Press Operator Name Role Phone Deepika Tian DO Primary Care Provider [phone] Allergies Active Allergy Reactions Criticality Noted Date [...] on file Legal Sex Female 9:00 AM EROSION CONTROL SPECIALIST Gender Identity Not on file Sexual Orientation Not on file Last Filed Vital Signs Vital Sign Reading Time Taken Comments Blood Pressure 97/61 08/04/2022 1:21 PM EROSION CONTROL SPECIALIST Pulse 62 08/04/2022 1:21 PM EROSION CONTROL SPECIALIST Temperature 36.6 C (97.9 F) 08/04/2022 10:56 AM EROSION CONTROL SPECIALIST Respiratory Rate 16 08/04/2022 1:21 PM EROSION CONTROL SPECIALIST Oxygen Saturation 99% 08/04/2022 1:21 PM EROSION CONTROL SPECIALIST Inhaled Oxygen Concentration - - Weight 47 kg (103 lb 9.9 oz) 08/04/2022 10:56 AM EROSION CONTROL SPECIALIST Height 154.9 cm (5' 1) 08/04/2022 10:56 AM EROSION CONTROL SPECIALIST Body Mass Index 19.58 08/04/2022 10:56 AM EROSION CONTROL SPECIALIST Plan of Treatment Health Maintenance Due Date Last Done Comments Depression Screening 1994 Hepatitis C Screening 1994 Regular Well Visit/Exam 18-64 2012 Influenza Vaccine (#1) 2025 06/17/2012 DTaP/Tdap/Td Vaccine (8 - Td or Tdap) 01/21/2031 01/21/2021, 12/13/2008, 11/27/1999, Additional history exists Hepatitis B Screening Completed 10/11/1997 , 01/25/1995, 1994 HPV Vaccines Completed 06/14/2009, 01/22, 12/14/2008 Varicella Vaccines Completed 01/19/2013, 03/04/2002 Pneumococcal vaccine <65 Aged Out No longer eligible based on patient's age to complete this topic Insurance Care Teams Small Kick Press Operator Relationship Specialty Start Date End Date Deepika Tian DO PCP - General Family Medicine 08/04/22
[2024-12-28 12:41] VITALS: BP 118/49; PULSE 58; RESP 16; TEMP 36.9; O2SAT 98
[2024-12-28 12:44] VITALS: BP 115/63; PULSE 55
[2024-12-28 12:46] VITALS: BP 103/63; BP 111/65; PULSE 58; PULSE 67; RESP 21; O2SAT 99
[2024-12-28 12:47] VITALS: BP 103/63; PULSE 77
[2024-12-28 12:57] LABS: Hematocrit 39.4 % (37.0-47.0); Hemoglobin 13.3 g/dL (12.0-15.0); Immature Granulocyte Percent A 0.2 % (0-0.5); Lymphocytes Absolute Auto 1.83 K/mm3 (0.9-3.2); Mean Corpuscular HGB Conc 33.8 g/dl (32-36); Mean Corpuscular Hemoglobin 30.7 pg (26-34); Mean Corpuscular Volume 91.0 fl (80-100); Nucleated Red Blood Cells Absolute Auto 0.000 K/mm3 (0.0-0.012); Nucleated Red Blood Cells Perc 0.0 % (0.0-0.2); Platelet Count Result 348 k/mm3 (150-375); Red Blood Count 4.33 M/mm3 (4.2-5.4); White Blood Count 8.2 K/mm3 (4.5-10.0)
[2024-12-28 13:14] LABS: INR 1.0; Partial Thromboplastin Time 25.9 Seconds (22.3-36.8); Prothrombin Time 13.1 Seconds (11.1-14.7)
[2024-12-28 13:22] LABS: Alanine Aminotransferase 16 U/L (6-35); Albumin Level 4.8 g/dL (3.5-5.1); Alkaline Phosphatase 46 U/L (38-126); Anion Gap 11 mmol/L (4-12); Aspartate Amino Transferase 28 U/L (14-36); Bilirubin,Total 0.9 mg/dL (0.2-1.3); Blood Urea Nitrogen 11 mg/dL (7-17); Calcium 9.4 mg/dL (8.4-10.2); Carbon Dioxide 20 mmol/L (22-30); Chloride 107 mmol/L (98-107); Estimated CRCL calculation 72 ml/min; Estimated Glomerular Filt Rate > 60; Glucose 97 mg/dL (65-110); Potassium 4.3 mmol/L (3.4-5.0); Sodium 138 mmol/L (137-145); Total Protein 7.6 g/dL (6.3-8.2)
--- NOTE | 2024-12-28 13:37 | ED.GIBLEED ---
HPI - GI Bleed General Chief complaint: GI Bleed Stated complaint: black blood stool, abdominal pain Time Seen by Provider: 12/28/24 13:36 Source: patient Mode of arrival: ambulatory Limitations: no limitations History of Present Illness HPI Narrative: 29 YEARS OLD WHITE FEMALE DROVE HERSELF TO THE EMERGENCY ROOM COMPLAINING OF ABDOMINAL PAIN STARTED YESTERDAY, THIS MORNING NOTICED THAT HER STOOL IS DARK AND BLACK. SHE DENIES ANY DIARRHEA. THE PAIN IS ACROSS THE ABDOMEN LIKE SHARP, LIKE CRAMPS, NOTHING MAKE IT WORSE, LAYING DOWN PROBABLY MAKE IT A LITTLE BETTER, HISTORY OF ENDOMETRIOSIS, ANXIETY, DEPRESSION, MOOD DISORDER. SHE DENIES ANY VAGINAL BLEEDING OR DISCHARGE. HISTORY OF COLONOSCOPY 2 YEARS AGO. PATIENT DOES NOT SMOKE OR DRINK AND USES MARIJUANA DAILY Related Data Home Medications ?Medication ?Instructions ?Recorded ?Confirmed ?Last Taken ?Type drospirenone (contraceptive) 4 mg 4 mg PO DAILY 08/26/24 10/19/24 Unknown History (28) tablet (Slynd) aripiprazole 5 mg tablet mg PO 10/19/24 10/19/24 Unknown History hydroxyzine HCl 50 mg tablet mg PO 10/19/24 10/19/24 Unknown History propranolol 60 mg capsule,24 mg PO 10/19/24 10/19/24 Unknown History hr,extended release Allergies Allergy/AdvReac Type Severity Reaction Status Date / Time garlic Allergy Unknown HIVES Verified 12/28/24 12:49 latex Allergy Unknown RASH Verified 12/28/24 12:49 sertraline Allergy Unknown suicidal Verified 12/28/24 12:49 thoughts PMFSH Past Medical History Medical History RUQ pain Pelvic varices Panic disorder without agoraphobia Chronic pelvic pain in female Uterine prolapse Dyspareunia Depression Anxiety Endometriosis Migraine Astigmatism, bilateral UTI (urinary tract infection) IBS (irritable bowel syndrome) Depression with anxiety Surgical History Surgical History History of total vaginal hysterectomy (TVH) (~05/2021) with right salpingectomy History of left salpingo-oophorectomy History of exploratory laparotomy History of dilation and curettage Family History Family History Grandparent Diabetes mellitus Family history of malignant neoplasm of brain Mother Diabetes mellitus Family history of elevated blood lipids Family history of anemia Father Hypertension Other Family history of malignant neoplasm of kidney Family history of pancreatic cancer Social History Social History Years smoked: 5 Smoking status: Former smoker Tobacco type: cigarettes Smoking end date: 06/23/19 Additional smoking assessment comments: QUIT 1 YEAR AGO Alcohol intake: never Substance use: never Substance use type: does not use Lack of Transportation: No Lack of Food: Never True Current Housing: I Have Housing Concerned About Future Housing: No Difficulty Paying Gas/Electric Bills: No Difficulty Paying for Meds: No Currently Unemployed: No Education: High School Diploma/GED Difficulty w/ Childcare or Family Care: No Living arrangements: with family Occupation/Education: occupation 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 Gender identity (if verbalized by the patient): Female Spiritual care concerns: No Course Vital Signs Vital signs: Vital Signs Temperature 36.9 C 12/28/24 12:41 Pulse Rate 58 L 12/28/24 12:41 Respiratory Rate 16 12/28/24 12:41 Blood Pressure 118/49 L 12/28/24 12:41 Pulse Oximetry 98 12/28/24 12:41 Oxygen Delivery Room Air 12/28/24 12:41 Temperature 36.9 C 12/28/24 12:41 Pulse Rate 77 12/28/24 12:47 Respiratory Rate 16 12/28/24 12:41 Blood Pressure 103/63 12/28/24 12:47 Pulse Oximetry 98 12/28/24 12:41 Oxygen Delivery Room Air 12/28/24 12:41 MDM - GI Bleed Lab Data 12/28/24 12:47 12/28/24 12:47 Labs: Lab Results 12/28/24 Range/Units 12:47 WBC 8.2 (4.5-10.0) K/mm3 RBC 4.33 (4.2-5.4) M/mm3 Hgb 13.3 (12.0-15.0) g/dL Hct 39.4 (37.0-47.0) % MCV 91.0 (80-100) fl MCH 30.7 (26-34) pg MCHC 33.8 (32-36) g/dl RDW 11.8 (11.5-14.5) % Plt Count 348 (150-375) k/mm3 MPV 8.5 (7.4-10.4) fl Immature Gran % (Auto) 0.2 (0-0.5) % Neut % (Auto) 68.8 (45.5-73.1) % Lymph % (Auto) 22.4 (18.3-44.2) % [place] % (Auto) 5.8 (2.6-8.5) % Eos % (Auto) 2.2 (0-4.4) % Baso % (Auto) 0.6 (0.2-1.2) % Lymph # (Auto) 1.83 (0.9-3.2) K/mm3 [place] # (Auto) 0.5 (0.1-0.6) K/mm3 Eos # (Auto) 0.2 (0-0.3) K/mm3 Baso # (Auto) 0.1 (0.0-0.1) K/mm3 Abs Immat Gran (auto) 0.02 (0.00-0.031) K/mm3 Absolute Neuts (auto) 5.6 (1.3-6.7) K/mm3 Absolute Nucleated RBC 0.000 (0.0-0.012) K/mm3 Nucleated RBC % 0.0 (0.0-0.2) % PT 13.1 (11.1-14.7) Seconds INR 1.0 APTT 25.9 (22.3-36.8) Seconds Sodium 138 (137-145) mmol/L Potassium 4.3 (3.4-5.0) mmol/L Chloride 107 (98-107) mmol/L Carbon Dioxide 20 L (22-30) mmol/L Anion Gap 11 (4-12) mmol/L BUN 11 (7-17) mg/dL Creatinine 0.75 (0.7-1.0) mg/dL Estim Creat Clear Calc 72 ml/min Estimated GFR > 60 (59 - ) Glucose 97 (65-110) mg/dL Calcium 9.4 (8.4-10.2) mg/dL Total Bilirubin 0.9 (0.2-1.3) mg/dL AST 28 (14-36) U/L ALT 16 (6-35) U/L Alkaline Phosphatase 46 (38-126) U/L Total Protein 7.6 (6.3-8.2) g/dL Albumin 4.8 (3.5-5.1) g/dL Blood Type O Positive Antibody Screen Negative Imaging Data Radiologist's impression: Impressions Abdomen/Pelvis CT 12/28/24 14:19 IMPRESSION: 1. No acute intra-abdominal/pelvic process. Discharge Plan Discharge Clinical Impression: Abdominal pain Patient Disposition: Home Condition: Stable Instructions: Abdominal Pain (ED) Additional Instructions: RETURN IF SYMPTOMS ARE WORSENING , CALL YOUR FAMILY PHYSICIAN FOR APPOINTMENT, TAKE TYLENOL, IBUPROFEN NEEDED FOR ACHES AND PAIN, CONTINUE HOME MEDICATIONS. Patient Language: Argentine Prescriptions: No Action Slynd 4 mg (28) tablet 4 mg PO DAILY meclizine 12.5 mg tablet 12.5 mg PO TID PRN (Reason: dizziness) Qty: 60 0RF aripiprazole 5 mg tablet PO hydroxyzine HCl 50 mg tablet PO propranolol 60 mg capsule,extended release 24 hr PO naproxen 500 mg tablet 500 mg PO BID PRN (Reason: pain) Qty: 60 0RF omeprazole 20 mg capsule,delayed release(DR/EC) 20 mg PO DAILY 30 Days Qty: 30 1RF methocarbamol 500 mg tablet 500 mg PO QHS PRN (Reason: pain) Qty: 60 0RF Follow-up/Referrals: Solomon Prado MD [Physician] - 01/03/25 Deepika Tian DO [Primary Care Provider] -
--- OUTSIDE RECORDS SUMMARY | 2024-12-28 14:31 | XMS_ITS | Encounter Summary ---
Author Organization [facility] Address [address] [place] [address] Care Team Providers Care Scoring Machine Operator Name Role Phone Moy Lombardi MD Primary Care Provider Encounter Details Date Type Department Care Team (Late st Contact Info) Description 11/28/2018 Abstract SFL CONVERSION [address] [place] [address] , Generic Conversion, Social History Tobacco Use Types Packs/Day Years Used Date Smoking Tobacco: Never Assessed Comments Unknown Sex and Gender Information Value Date Recorded Sex Assigned at Not on file Legal Sex Female 5:45 PM IMPREGNATOR [employer]ODU[employer] Gender Identity Not on file Sexual Orientation Not on file documented as of this encounter Plan of Treatment Not on file documented as of this encounter Visit Diagnoses Not on filedocumented in this encounter Care Teams Scoring Machine Operator Relationship Specialty Start Date End Date Moy Lombardi MD [address] [place] [address] PCP - General FAMILY PRACTICE 05/24/19 documented as of this encounter
--- OUTSIDE RECORDS SUMMARY | 2024-12-28 14:31 | XMS_ITS | Clinical Summary ---
Author Organization [facility] Address [address] [place] [address] Care Team Providers Care Table Maker Name Role Phone Moy Lombardi MD Primary Care Provider [phone] Allergies Active Allergy Reactions Criticality Noted Date [...] on file Legal Sex Female 5:45 PM CAVING GUIDE Gender Identity Not on file Sexual Orientation [...] (108 lb 0.4 oz) 05/24/2019 8:05 AM CAVING GUIDE Height 154.9 cm (5' 1) 05/24/2019 8:05 AM CAVING GUIDE Body Mass Index 20.41 05/24/2019 8:05 AM CAVING GUIDE Plan of Treatment Health Maintenance Due Date [...] Insurance [employer] Care Teams Table Maker Relationship Specialty Start Date End Date Moy Lombardi MD [address] [place] [place] [address] PCP - General FAMILY PRACTICE 05/24/19
[2024-12-28 15:00] VITALS: PULSE 63; RESP 17; O2SAT 100
[2024-12-28 15:43] LABS: Add Urine Microscopic? NO; Appearance Urine Clear (Clear); Glucose Urine UA Negative (Negative); Leukocyte Esterase Ur Negative LEU/UL (Negative); Nitrate Urine Negative (Negative); Specific Grav Ur > 1.045 (1.001-1.035)
== END 2024-12-28 15:52 | disposition home or self-care (01) ==
PROVIDERS: Emergency Provider Emergency Medicine; PCP Family Medicine
DX: R10.84 Generalized abdominal pain (principal); F32.A Depression, unspecified; F41.9 Anxiety disorder, unspecified; Z87.440 Personal history of urinary (tract) infections
CPT/HCPCS: 36415; 74177; 80053; 81003; 85025; 85610; 85730; 86850; 86900; 86901; 99284; Q9967

== ENCOUNTER 2025-01-10 13:44 | Outpatient (CLI) | payer OTHER, SELFPAY ==
--- NOTE | ~2025-01-10 | XR_ITS ---
XR abdomen/kub 1V 01/10/2025 14:05 INDICATION: Hematuria TECHNIQUE: KUB COMPARISON: 11/22/2013 FINDINGS: Bowel gas pattern is normal. There is no evidence of free air, mass, organomegaly, ascites or obstruction. No abnormal calculi are seen. The bones appear intact. IMPRESSION: 1: No acute abdominal abnormality identified. Reviewed, dictated and finalized at location A.
--- OUTSIDE RECORDS SUMMARY | 2025-01-10 13:50 | XMS_ITS | Encounter Summary ---
Author Organization [facility] Address [address] [place] [address] Care Team Providers Care Lens Mold Setter Name Role Phone Moy Lombardi MD Primary Care Provider [phone] Encounter Details Date Type Department Care Team (Late st Contact Info) Description 11/28/2018 Abstract SFL CONVERSION [address] [place] [address] , Generic Conversion, Social History Tobacco Use Types Packs/Day Years Used Date Smoking Tobacco: Never Assessed Comments Unknown Sex and Gender Information Value Date Recorded Sex Assigned at Not on file Legal Sex Female 5:45 PM SPECIAL TESTER Gender Identity Not on file Sexual Orientation Not on file documented as of this encounter Plan of Treatment Not on file documented as of this encounter Visit Diagnoses Not on filedocumented in this encounter Care Teams Lens Mold Setter Relationship Specialty Start Date End Date Moy Lombardi MD [address] [place] [address] PCP - General FAMILY PRACTICE 05/24/19 documented as of this encounter
--- OUTSIDE RECORDS SUMMARY | 2025-01-10 13:50 | XMS_ITS | Referral Summary ---
Author Organization [facility] at the [facility] Office Center Address [address] [place] [address] Care Team Providers Care Monitoring Specialist Name Role Phone Deepika Tian Primary Care Provider [phone] Allergies Active Allergy Reactions Criticality Noted Date [...] on file Legal Sex Female 9:00 AM TITLE INVESTIGATOR Gender Identity Not on file Sexual Orientation Not on file Last Filed Vital Signs Vital Sign Reading Time Taken Comments Blood Pressure 97/61 08/04/2022 1:21 PM TITLE INVESTIGATOR Pulse 62 08/04/2022 1:21 PM TITLE INVESTIGATOR Temperature 36.6 C (97.9 F) 08/04/2022 10:56 AM TITLE INVESTIGATOR Respiratory Rate 16 08/04/2022 1:21 PM TITLE INVESTIGATOR Oxygen Saturation 99% 08/04/2022 1:21 PM TITLE INVESTIGATOR Inhaled Oxygen Concentration - - Weight 47 kg (103 lb 9.9 oz) 08/04/2022 10:56 AM TITLE INVESTIGATOR Height 154.9 cm (5' 1) 08/04/2022 10:56 AM TITLE INVESTIGATOR Body Mass Index 19.58 08/04/2022 10:56 AM TITLE INVESTIGATOR Plan of Treatment Not on file Insurance Care Teams Monitoring Specialist Relationship Specialty Start Date End Date Deepika Tian DO PCP - General Family Medicine 08/04/22
--- OUTSIDE RECORDS SUMMARY | 2025-01-10 13:50 | XMS_ITS | Clinical Summary ---
Author Organization [facility] Address [address] [place] [address] Care Team Providers Care Assistant Store Manager Sales Name Role Phone Moy Lombardi MD Primary Care Provider [phone] Allergies Active Allergy Reactions Criticality Noted Date [...] on file Legal Sex Female 5:45 PM ORCHESTRA MUSICIAN Gender Identity Not on file Sexual Orientation [...] (108 lb 0.4 oz) 05/24/2019 8:05 AM ORCHESTRA MUSICIAN Height 154.9 cm (5' 1) 05/24/2019 8:05 AM ORCHESTRA MUSICIAN Body Mass Index 20.41 05/24/2019 8:05 AM ORCHESTRA MUSICIAN Plan of Treatment Health Maintenance Due Date [...] Insurance [employer] Care Teams Assistant Store Manager Sales Relationship Specialty Start Date End Date Moy Lombardi MD [address] [place] [address] PCP - General FAMILY PRACTICE 05/24/19
--- OUTSIDE RECORDS SUMMARY | 2025-01-10 13:50 | XMS_ITS | Patient Health Record ---
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 Stress is when someone feels tense, nervous, anxious, or can\t sleep at night because their mind is troubled Somewhat In the past year have you sp ent more than 2 nights in a row in a alf, senior care, half-way center, or juvenile correctional facility? No Do [...] Status W/U Status Risk Notes Problem Depression (156775885) Depression (F32.9) Active confirmed Problem Mood disorder (57971689) Mood disorder (F39) Active confirmed Problem Anxiety (16201050) Anxiety (F41.9) Active confirmed Problem Inattention (69071023) Inattention (R41.840) Active confirmed Vital Signs Height 61 in 11/02/2024 Weight 123 lbs 12/21/2024 BMI 23.24 kg/m2 11/02/2024 Encounters Encounter Location Date Provider Diagnosis [address] [place] [address] 08/12/2024 Lorenzo Quigley Mood disorder F39 ; Anxiety F41.9 ; Depression F32.9 and Inattention R41.[address] [address] 09/15/2024 Lorenzo Quigley Mood disorder F39 ; Anxiety F41.9 ; Depression F32.9 and Inattention R41.[address] [address] 10/12/2024 Lorenzo Quigley Mood disorder F39 ; Anxiety F41.9 ; Depression F32.9 and Inattention R41.[address] [address] 11/02/2024 Lorenzo Quigley Mood disorder F39 ; Anxiety F41.9 ; Depression F32.9 and Inattention R41.840 [facility] [address] [address] 12/21/2024 Naomie Nikki Mood disorder F39 ; Anxiety F41.9 ; Depression F32.9 ; Inattention R41.840 and Therapeutic drug monitoring Z51.[address] [address] 08/12/2024 Lorenzo Quigley [address] [address] 08/12/2024 Lorenzo Quigley Assessments Encounter Date Diagnosis [...] to the emergency department, or contact the [facility] Crisis Unit/Team. Follow up as scheduled in [...] to the emergency department, or contact the [facility] Crisis Unit/Team. Follow up as scheduled in [...] health CRISIS, please reach out to [phone] ([employer] Suicide and Crisis Lifeline), 911, go to the emergency department, or contact the [facility] Crisis Unit/Team. Follow up as scheduled in [...] to the emergency department, or contact the [facility] Crisis Unit/Team. Follow up as scheduled in [...] to the emergency department, or contact the [facility] Crisis Unit/Team. Follow up as scheduled in [...] to the emergency department, or contact the [facility] Crisis Unit/Team. Follow up as scheduled in [...] to the emergency department, or contact the [facility] Crisis Unit/Team. Follow up as scheduled in [...] to the emergency department, or contact the [facility] Crisis Unit/Team. Follow up as scheduled in [...] or be administered own oral medications per [facility] protocols. Provided informed consent with understanding of [...] Jordan PMHNP-BC to: [] consider utilizing therapist/counselor/ social contact worker/psychologist, referral given [x] continue with therapist/counselor/ social contact worker/psychologist Psychoeducation: -Treatment options discussed in detail with patient/guardian verbalizing understanding of treatment rationales. -Side effects and benefits of all medications prescribed discussed at length between psychiatric prescribing provider and patient/guardian along with the risks associated of [id number] interactions, including but not limited to prescription [...] engaged in treatment plan with Naomie Jordan [facility]. -Perceiving complete understanding of rationale by patient/guardian and willingness to adhere to formulated plan of care by prescriber with patient/guardian buy-in, willingness to participate actively in plan of care and willing to take charge of own care. -Although geared for female patients, all patients/guardians are informed by prescribing provider of risks of medications that could potentially be taken by female/women within their [place] of influence and that women who use [...] a should occur, to consult with provider, VETERINARY MEDICINE SCIENTIST and/or Nurse Security Assurance Specialist to determine if prescribed medications should or [...] Insured Coverage Start Date Coverage End Date [employer] [address] [place] [address] [id number] Christina Scott Self - patient is the insured 4 [email or web address] [address] [place] [address] [id number] Christina Scott Self - patient is the insured 5 Medical (General) History Surgical History Surgery Date(Month/Year) dilatation and curettage x2 laparotomy 2021 COLONOSCOPY 2022 TOTAL HYSTERECTOMY 06/01/2021
--- OUTSIDE RECORDS SUMMARY | 2025-01-10 13:50 | XMS_ITS | Clinical Summary ---
Author Organization [facility] at the [facility] Office Center Address [address] [place] [address] Care Team Providers Care Adjunct Business Instructor Name Role Phone Deepika Tian DO Primary Care Provider [phone] Allergies Active Allergy Reactions Criticality Noted Date [...] on file Legal Sex Female 9:00 AM FUEL EFFICIENT AIRCRAFT DESIGNER Gender Identity Not on file Sexual Orientation Not on file Last Filed Vital Signs Vital Sign Reading Time Taken Comments Blood Pressure 97/61 08/04/2022 1:21 PM FUEL EFFICIENT AIRCRAFT DESIGNER Pulse 62 08/04/2022 1:21 PM FUEL EFFICIENT AIRCRAFT DESIGNER Temperature 36.6 C (97.9 F) 08/04/2022 10:56 AM FUEL EFFICIENT AIRCRAFT DESIGNER Respiratory Rate 16 08/04/2022 1:21 PM FUEL EFFICIENT AIRCRAFT DESIGNER Oxygen Saturation 99% 08/04/2022 1:21 PM FUEL EFFICIENT AIRCRAFT DESIGNER Inhaled Oxygen Concentration - - Weight 47 kg (103 lb 9.9 oz) 08/04/2022 10:56 AM FUEL EFFICIENT AIRCRAFT DESIGNER Height 154.9 cm (5' 1) 08/04/2022 10:56 AM FUEL EFFICIENT AIRCRAFT DESIGNER Body Mass Index 19.58 08/04/2022 10:56 AM FUEL EFFICIENT AIRCRAFT DESIGNER Plan of Treatment Health Maintenance Due Date [...] to complete this topic Insurance Care Teams Adjunct Business Instructor Relationship Specialty Start Date End Date Deepika Tian DO PCP - General Family Medicine 08/04/22
== END 2025-01-10 13:45 | disposition home or self-care (01) ==
PROVIDERS: PCP Family Medicine; Visit Provider Obstetrics & Gynecology
DX: R31.9 Hematuria, unspecified (principal)
CPT/HCPCS: 74018